=== PATIENT | female | born 1945 | race Caucasian/White ===

== ENCOUNTER → 2017-03-13 | Outpatient (REF) | payer MEDICARE | LOC: M SFHCPLAZ 13:15 | PROVIDERS: ATTEND Family Medicine | DX: Z13.1 Encounter for screening for diabetes mellitus (principal); E78.2 Mixed hyperlipidemia; E03.9 Hypothyroidism, unspecified; I10 Essential (primary) hypertension; Z53.8 Procedure and treatment not carried out for other reasons ==

== ENCOUNTER → 2017-03-25 | Outpatient (CLI) | payer MEDICARE ==
[2017-03-25 09:38] LABS: ALBUMIN 3.6 GM/DL (3.2-5.2); ALKALINE PHOSPHATASE 104 U/L (45-117); ALT/SGPT 44 U/L (12-78); AST/SGOT 35 U/L (15-37); BILIRUBIN,TOTAL 0.7 MG/DL (0.2-1.0); BLOOD UREA NITROGEN 17 MG/DL (7-18); CARBON DIOXIDE LEVEL 33 MEQ/L (21-32); CHLORIDE LEVEL 95 MEQ/L (98-107); CREATININE FOR GFR 0.67 MG/DL (0.55-1.02); GLUCOSE, FASTING 127 MG/DL (83-110); POTASSIUM SERUM 3.1 MEQ/L (3.5-5.1); SODIUM LEVEL 135 MEQ/L (136-145); TOTAL PROTEIN 6.6 GM/DL (6.4-8.2)
[2017-03-25 09:58] LABS: CHOLESTEROL LEVEL 168 MG/DL (<200); TRIGLYCERIDES LEVEL 70 MG/DL (<150)
[2017-03-25 11:21] LABS: ANION GAP 7 MEQ/L (8-16)
== END ==
LOC: M LAB 08:01
PROVIDERS: ATTEND Family Medicine
DX: E03.9 Hypothyroidism, unspecified (principal)

== ENCOUNTER → 2017-09-18 | Outpatient (REF) | payer MEDICARE | LOC: M SFHCPLAZ 15:56 | PROVIDERS: ATTEND Family Medicine | DX: E03.9 Hypothyroidism, unspecified (principal); E55.9 Vitamin D deficiency, unspecified ==

== ENCOUNTER → 2019-03-29 | Outpatient (CLI) | payer MEDICARE ==
[2019-03-29 13:47] LABS: BLOOD UREA NITROGEN 11 MG/DL (7-18); CALCIUM LEVEL 9.4 MG/DL (8.8-10.2); CARBON DIOXIDE LEVEL 31 MEQ/L (21-32); CHLORIDE LEVEL 98 MEQ/L (98-107); CHOLESTEROL LEVEL 180 MG/DL (<200); CHOLESTEROL RISK RATIO 2.068 (<5); CREATININE FOR GFR 0.78 MG/DL (0.55-1.30); GLOMERULAR FILTRATION RATE > 60.0 (>39); GLUCOSE, FASTING 195 MG/DL (70-100); HDL CHOLESTEROL 87 MG/DL (>40); LDL CHOLESTEROL 69 MG/DL (<100); NON-HDL-C 93 MG/DL; POTASSIUM SERUM 3.5 MEQ/L (3.5-5.1); SODIUM LEVEL 138 MEQ/L (136-145); TRIGLYCERIDES LEVEL 120 MG/DL (<150)
== END ==
LOC: M SMT 10:18
PROVIDERS: ATTEND Obstetrics & Gynecology
DX: E03.9 Hypothyroidism, unspecified (principal); I10 Essential (primary) hypertension; E78.2 Mixed hyperlipidemia

== ENCOUNTER → 2019-05-14 | Outpatient (CLI) | payer MEDICARE ==
[~2019-05-14] MED LIST: ALCOPAD25 TOP; ASPI-161 PO; ASPI81TA85 PO; ATOR80TA59; ATOR80TA59 PO; AZO-95TA3 PO; BLOOKIT21 XX; CALTTAB6 PO; CEFD1CAP8; CEFD1CAP8 PO; CHLO125TA; CHLO25TA PO; CYAN100050 PO; ESTE1TAB4 PO; GLUC1TES2 XX; IBUP-1022; IBUP1TAB6 PO; ICAPTAB5 PO; INSU1MIS20 SC; INSUDET SC; LANC30MI XX; LEVO75TA4; MECL-86; MECL-86 PO; METF-791 PO; OMEG100011 PO; OMEP-218; PEN1MIS21 SC; SYNT75TA PO; VITMTA PO
--- NOTE | 2019-05-16 14:15 | DEXA ---
AP SPINE L1 - L4 1.469 2.2 4.0 LT FEMUR TOTAL 1.062 0.4 2.2 LT NECK 0.960 -0.6 1.4 RT FEMUR TOTAL 1.084 0.6 2.4 RT NECK 0.979 -0.4 1.5 TOTAL BODY TOTAL OTHER COMMENTS: Normal bone densitometry of the spine and hips. The density of the spine has increased 5.7% since 07/05/2013. The density of the left hip has increased 2.5% since 07/05/2013. The density of the right hip has increased 2.9% since 07/05/2013. The increased density of the spine does represent a significant change. The increased density of the left hip does represent a significant change. The increased density of the right hip does represent a significant change. FOLLOW-UP: Recommendation for the next bone density exam: 5 years. CLAIR
== END ==
LOC: M WHC 14:19
PROVIDERS: ATTEND Obstetrics & Gynecology
DX: Z13.820 Encounter for screening for osteoporosis (principal); M85.89 Other specified disorders of bone density and structure, multiple sites

== ENCOUNTER → 2019-09-02 | Outpatient (REF) | payer MEDICARE ==
[2019-09-02 20:11] LABS: APPEARANCE, URINE CLEAR (CLEAR); BACTERIA, URINE AUTO NEGATIVE (NEGATIVE); BILIRUBIN, URINE AUTO NEGATIVE (NEGATIVE); BLOOD, URINE BLOOD NEGATIVE (NEGATIVE); COLOR, URINE YELLOW (YELLOW); GLUCOSE, URINE (UA) AUTO 3+ mg/dL (NEGATIVE); KETONE, URINE AUTO TRACE mg/dL (NEGATIVE); LEUKOCYTE ESTERASE, URINE AUTO NEGATIVE (NEGATIVE); NITRITE, URINE AUTO NEGATIVE (NEGATIVE); PROTEIN, URINE AUTO NEGATIVE (NEGATIVE); RBC, URINE AUTO 0 /HPF (0-3); SPECIFIC GRAVITY URINE AUTO 1.027 (1.002-1.035); SQUAMOUS EPITHELIAL CELL UR AU 0 /HPF (0-6); UROBILINOGEN, URINE AUTO 0.2 mg/dL (0.0-2.0); WBC, URINE AUTO 1 /HPF (0-3)
== END ==
LOC: M LAB REF 10:24
PROVIDERS: ATTEND Physician Assistant Medical
DX: N39.0 Urinary tract infection, site not specified (principal)

== ENCOUNTER 2019-09-09 11:43 | Observation (INO) | payer MEDICARE ==
[~2019-09-09] VITALS: Ht 157.5 cm; Wt 64.4 kg
[2019-09-09] MEDS ORDERED: OMEP-218 (12:31)
[2019-09-09] MEDS ORDERED: ATOR80TA59 (12:31)
[2019-09-09] MEDS ORDERED: LEVO75TA4 (12:31)
[2019-09-09] MEDS ORDERED: IBUP-1022 (12:31)
[2019-09-09] MEDS ORDERED: CEFD1CAP8 (12:31)
[2019-09-09] MEDS ORDERED: CHLO125TA (12:31)
[2019-09-09] MEDS ORDERED: ASPI81TA85 PO (12:31)
[2019-09-09] MEDS ORDERED: MECL-86 (12:31)
[2019-09-09 12:50] LABS: BASO # 0.1 10^3/uL (0.0-0.2); BASO % 0.8 % (0.0-1.0); EOS # 0.2 10^3/uL (0.0-0.5); EOS % 2.5 % (0.0-3.0); HEMATOCRIT 44.1 % (36.0-47.0); HEMOGLOBIN 15.7 g/dl (12.0-15.5); LYMPH # 2.1 10^3/uL (1.5-5.0); LYMPH % 26.3 % (24.0-44.0); MEAN CORPUSCULAR HEMOGLOBIN 32.3 pg (27.0-33.0); MEAN CORPUSCULAR HGB CONC 35.6 g/dl (32.0-36.5); MEAN CORPUSCULAR VOLUME 90.7 fl (80.0-96.0); MONO % 11.9 % (0.0-5.0); NEUTROPHILS # 4.6 10^3/uL (1.5-8.5); NEUTROPHILS % 58.1 % (36.0-66.0); PLATELET COUNT, AUTOMATED 248 10^3/uL (150-450); RED BLOOD COUNT 4.86 10^6/uL (4.00-5.40)
--- NOTE | 2019-09-09 13:13 | REP ---
Five views lumbar and three views thoracic spine: 09/09/2019. Indication: Thoracolumbar pain. Comparison: None. Findings: Idiopathic thoracolumbar scoliosis is present. Advanced degenerative sequelae of the thoracolumbar spine are noted. There is no evidence of acute fracture. No erosive osseous lesions of the thoracolumbar spine are detected. There is minimal anterolisthesis of T10 on T11. Impression: No acute osseous injury of the thoracolumbar spine. Scoliosis. Advanced degenerative sequelae. Electronically Signed by Kennedy Diaz DO 09/09/2019 01:05 P
--- NOTE | 2019-09-09 13:20 | REP ---
Five views lumbar and three views thoracic spine: 09/09/2019. Indication: Thoracolumbar pain. Comparison: None. Findings: Idiopathic thoracolumbar scoliosis is present. Advanced degenerative sequelae of the thoracolumbar spine are noted. There is no evidence of acute fracture. No erosive osseous lesions of the thoracolumbar spine are detected. There is minimal anterolisthesis of T10 on T11. Sliding-type hiatal hernia is noted. Impression: No acute osseous injury of the thoracolumbar spine. Scoliosis. Advanced degenerative sequelae. Electronically Signed by Kennedy Diaz DO 09/09/2019 01:12 P
[2019-09-09 13:29] LABS: CALCIUM LEVEL 9.9 MG/DL (8.8-10.2); CREATININE FOR GFR 1.08 MG/DL (0.55-1.30); GLOMERULAR FILTRATION RATE 52.7 (>39); POTASSIUM SERUM 3.7 MEQ/L (3.5-5.1)
[2019-09-09 14:15] LABS: HEMOGLOBIN A1c 13.6 %
[2019-09-09] MEDS ORDERED: HumuLIN R (REGULAR) INSULIN (NovoLIN R) **100U/ML** PER UNIT IV ONE (14:15)
[2019-09-09] MEDS ORDERED: NS 500 ML IV ONE (14:15)
[2019-09-09 14:26] LABS: ALBUMIN 3.4 GM/DL (3.2-5.2); BILIRUBIN,DIRECT 0.3 MG/DL (0.0-0.2); BILIRUBIN,TOTAL 1.3 MG/DL (0.2-1.0); MAGNESIUM LEVEL 2.1 MG/DL (1.8-2.4); PHOSPHORUS LEVEL 2.2 MG/DL (2.5-4.9); TOTAL PROTEIN 7.6 GM/DL (6.4-8.2)
[2019-09-09 15:33] LABS: ACETONE/KETONE 11.71 MG/DL (<2.81)
[2019-09-09] MEDS ORDERED: NS 1,000 ML IV ONE (16:15)
[2019-09-09 17:59] LABS: ALBUMIN 3.2 GM/DL (3.2-5.2); BILIRUBIN,DIRECT 0.3 MG/DL (0.0-0.2); TOTAL PROTEIN 6.6 GM/DL (6.4-8.2)
[2019-09-09] MEDS ORDERED: OMEGA-3 1000MG CAPSULE PO SCH (18:00)
[2019-09-09] MEDS ORDERED: MULTIVITAMINS/MINERALS THERAP 1 TAB PO SCH (18:00)
[2019-09-09 18:05] LABS: BLOOD UREA NITROGEN 17 MG/DL (7-18); CALCIUM LEVEL 9.1 MG/DL (8.8-10.2); CARBON DIOXIDE LEVEL 35 MEQ/L (21-32); CHLORIDE LEVEL 93 MEQ/L (98-107); CREATININE FOR GFR 0.77 MG/DL (0.55-1.30); GLOMERULAR FILTRATION RATE > 60.0 (>39); GLUCOSE, FASTING 284 MG/DL (70-100); POTASSIUM SERUM 2.8 MEQ/L (3.5-5.1); SODIUM LEVEL 137 MEQ/L (136-145)
[2019-09-09] MEDS ORDERED: GLUCOSE 4 GM CHEW TABLET PO PRN (19:45)
[2019-09-09] MEDS ORDERED: GLUCAGON FOR INJ 1 MG VIAL (J1610) SC PRN (19:45)
[2019-09-09] MEDS ORDERED: POTASSIUM CHLORIDE 10 MEQ SR TABLET PO ONE (19:45)
[2019-09-09] MEDS ORDERED: DEXTROSE 50% 50 ML SYRINGE IV PRN (19:45)
[2019-09-09] MEDS ORDERED: ENTER DRUG NAME HERE (PATIENT'S OWN MED) PO SCH (20:00)
[2019-09-09] MEDS: KCL 10MEQ/100ML SWI (KRUN) 10 MEQ in IV 1 EA IV SCH ×4 (20:04→23:58)
--- NOTE | 2019-09-09 20:09 | HPEPDOC ---
General Date of Admission 09/09/2019 Date of Service: Sep 09, 2019 Primary Care Physician: EDUARD LOPEZ D.O. Chief Complaint The patient is a 73-year-old female admitted with a reason for visit of Flank And Abd Pain, Urinary Problem. History of Present Illness HPI: 73-year-old female presents for foot burning and leg pain and feeling dizzy. She reports this is been ongoing for the past few weeks. Also has noted polydipsia polyuria. Given her thirst, she has increased her intake of sodas and juices. She denies any recent fever, chills, nausea, vomiting, abdominal pain, chest pain, shortness of breath. Reports she is compliant with all meds. Denies sick contacts and travel. Of note, she was recently started on cefdinir for sinusitis. Is otherwise doing well and has no other complaints. On admission was found to have an A1c of 13, osmoles and serum 39, bicarbonate elevated at 34, no anion gap, ketones in the urine. She will be admitted for hyperglycemia with ketones, however does not meet DKA or HHS. She denies any history of diabetes. PMH: Hypertension Osteoarthritis Vertigo Hyperlipidemia GERD Sciatica Hypothyroidism Past Surgical Hx: Per patient, none Family Hx: Father with CAD Mother with stroke and hypertension Social Hx: Denies ever smoking, alcohol, illicit substances ROS: Constitutional: Denies fever, chills, night sweats, weight loss HEENT: Denies headache, dysphagia Skin: Denies any rashes or ulcers Pulmonary: Denies wheezing, dyspnea, cough Cardiac: Denies chest pain, palpitations, edema, or wt gain GI: Denies nausea, vomiting, diarrhea, constipation, melena, hematochezia Endo: admits polyuria, polydipsia, excessive thirst MSK: Denies new pains or joint swelling. Admits b/l LE cramps/pain Neurologic: Denies new numbness/tingling PHYSICAL: General exam: A&Ox3, NAD, resting comfortably HEENT: NCAT, EOMI, anicteric sclera, supple neck, dry mucous memb Cardiac: RRR, 3/6 systolic murmur heard best left sternal border, No JVD or edema Respiratory: CTAB, no w/r/r/ Extremity: 2+ radial and dorsalis pedis pulses, no calf tenderness Skin: [place], warm, dry. No visible necrosis or lesions. Soles of b/l feet are erythematous, but not warm to touch or tender. No rash or drainage Msk: strength 5/5 x4, normal tone Neuro: normal speech, no focal deficits, sensation & motor intact in all extremities, including b/l feet LABORATORY DATA, MICROBIOLOGY: Please see below. IMAGING STUDIES: Thoracic spine x-ray: No acute osseous injury of the thoracolumbar spine. Scol iosis. Advanced degenerative sequelae. Lumbar spine xray: No acute osseous injury of the thoracolumbar spine. Scoliosis. Advanced degenerative sequelae. ASSESSMENT AND PLAN: This is a 73-year-old female with hypertension, arthritis, vertigo, hyperlipidemia, presenting for bilateral lower foot pain, polyuria, polydipsia, excessive thirst. Found on admission to have A1c of 13.6, ketones in urine, however no anion gap or acidosis. 1. New onset diabetes: Patient is hyperglycemic, however does not meet criteria for DKA or HHS. Will need diabetic teaching and meat with teachers noticed. Start on low dose of Levemir and titrate up as needed. Insulin sliding scale on board. Will need frequent fingersticks in BMP strep tonight to monitor potassium, anion gap, bicarbonate, ketones. Will hydrate with fluids given her dehydrated status. 2. Hypokalemia: Likely 2/2 insulin administration. Closely monitor with frequent BMPs. Oral and IV supplementation given. Potassium added on to her IV fluids as well. 3. Pseudohyponatremia: 2/2 hyperglycemia. Is normal when accounted for her blood sugars. Monitor 4. Recent sinusitis: Patient is on cefdinir course started by urgent care. Okay to continue For the remainder of her chronic conditions, continue home meds except for Chlorthalidone, which we will hold given her IV fluid hydration. DVT prophylaxis: mechanical DISPOSITION: Observe overnight to just insulin for her hyperglycemia and monitor ketones and potassium. Likely discharge tomorrow. Home Medications Scheduled Aspirin (Aspir 81) 81 Mg Tablet.dr, 1 TAB PO DAILY for pain, (Reported) Miscellaneous Medications Atorvastatin Calcium (Atorvastatin Calcium) 80 Mg Tablet, (Reported) Cefdinir (Cefdinir) 300 Mg Capsule, (Reported) Chlorthalidone (Chlorthalidone) 25 Mg Tablet, (Reported) Ibuprofen (Ibuprofen) 600 Mg Tablet, (Reported) Levothyroxine Sodium (Levothyroxine Sodium) 75 Mcg Tablet, (Reported) Meclizine HCl (Meclizine HCl) 25 Mg Tablet, (Reported) Omeprazole (Omeprazole) 20 Mg Capsule., (Reported) Allergies Coded Allergies: Penicillins (Verified Allergy, Mild, rash, 09/09/19) Sulfa (Sulfonamide Antibiotics) (Verified Allergy, Mild, rash, 09/09/19) codeine (Verified Allergy, Mild, rash, 09/09/19) erythromycin base (Verified Allergy, Mild, rash, 09/09/19) morphine (Verified Allergy, Mild, rash, 09/09/19) ATTENDING NOTE I have personally evaluated and examined the patient. Discussed with residents and student regarding plan of care and agree with the above assessment and plan. A-FIB/CHADSVASC A-FIB History Current/History of A-Fib/PAF?: No Current PO Anticoag Therapy: No Vital Signs Vital Signs Date Time Temp Pulse Resp B/P (MAP) Pulse Ox O2 Delivery O2 Flow Rate FiO2 09/09/19 19:34 97.6 71 16 127/64 (85) 100 Room Air Laboratory Data Labs 24H Laboratory Tests 2 09/09/19 12:33: Urine Color STRAW, Urine Appearance CLEAR, Urine pH 6.0, Urine Specific [place] 1.027, Urine Protein NEGATIVE, Urine Glucose (UA) 3+H, Urine Ketones 1+H, Urine Blood NEGATIVE, Urine Nitrite NEGATIVE, Urine Bilirubin NEGATIVE, Urine Urobilinogen 0.2, Urine Leukocyte Esterase NEGATIVE, Urine WBC (Auto) 1, Urine RBC (Auto) 1, Urine Hyaline Casts (Auto) 0, Urine Bacteria (Auto) NEGATIVE, Urine Squamous Epithelial Cells 0, Urine Sperm (Auto) , Estimated Mean Plasma Glucose 344H, Hemoglobin A1c 13.6 09/09/19 12:39: Immature Granulocyte % (Auto) 0.4, Neutrophils (%) (Auto) 58.1, Lymphocytes (%) (Auto) 26.3, Monocytes (%) (Auto) 11.9H, Eosinophils (%) (Auto) 2.5, Basophils (%) (Auto) 0.8, Neutrophils # (Auto) 4.6, Lymphocytes # (Auto) 2.1, Monocytes # (Auto) 1.0H, Eosinophils # (Auto) 0.2, Basophils # (Auto) 0.1, Nucleated Red Blood Cells % (auto) 0.0, Anion Gap 12, Glomerular Filtration Rate 52.7, Calcium Level 9.9, Phosphorus Level 2.2L, Magnesium Level 2.1, Total Bilirubin 1.3H, Direct Bilirubin 0.3H, Aspartate Amino Transf (AST/SGOT) 41H, Alanine Amino transferase (ALT/SGPT) 43, Alkaline Phosphatase 124H, Total Protein 7.6, Albumin 3.4, Albumin/Globulin Ratio 0.81L, Lipase 116, B-Hydroxybutyrate 11.71H 09/09/19 13:54: Osmolality 309H 09/09/19 15:48: Bedside Glucose (Misc Panel) 330H 09/09/19 16:04: Anion Gap 9, Glomerular Filtration Rate > 60.0, Calcium Level 9.1, Total Bilirubin 1.0, Direct Bilirubin 0.3H, Aspartate Amino Transf (AST/SGOT) 36, Alanine Aminotransferase (ALT/SGPT) 40, Alkaline Phosphatase 115, Total Protein 6.6, Albumin 3.2, Albumin/Globulin Ratio 0.94L, B-Hydroxybutyrate 17.25H 09/09/19 18:40: Osmolality 295 CBC/BMP Laboratory Tests 09/09/19 12:39 09/09/19 16:04 Plan / VTE VTE Prophylaxis Ordered?: Yes FARIDA RODRIGUEZ DO Sep 09, 2019 20:09 PIO GUEVARA MD Sep 09, 2019 20:32
[2019-09-09] MEDS ORDERED: ATORVASTATIN 20 MG TAB PO SCH (21:00)
[2019-09-09] MEDS ORDERED: CHLO25TA PO (21:16)
[2019-09-09] MEDS ORDERED: CYAN100050 PO (21:16)
[2019-09-09] MEDS ORDERED: ASPI-161 PO (21:16)
[2019-09-09] MEDS ORDERED: AZO-95TA3 PO (21:16)
[2019-09-09] MEDS ORDERED: VITMTA PO (21:16)
[2019-09-09] MEDS ORDERED: MECL-86 PO (21:16)
[2019-09-09] MEDS ORDERED: OMEG100011 PO (21:16)
[2019-09-09] MEDS ORDERED: SYNT75TA PO (21:16)
[2019-09-09] MEDS ORDERED: IBUP1TAB6 PO (21:16)
[2019-09-09] MEDS ORDERED: ATOR80TA59 PO (21:16)
[2019-09-09] MEDS ORDERED: ICAPTAB5 PO (21:16)
[2019-09-09] MEDS ORDERED: CALTTAB6 PO (21:16)
[2019-09-09] MEDS ORDERED: ESTE1TAB4 PO (21:16)
[2019-09-09] MEDS ORDERED: CEFD1CAP8 PO (21:16)
[2019-09-09 21:52] VITALS: BP 143/67
[2019-09-09] MEDS: LEVEMIR (INSULIN DETEMIR) 1 UNITS/0.01ML SC SCH (22:33)
[2019-09-09] MEDS: CEFDINIR 300 MG CAP (OMNICEF) PO SCH (22:33)
[2019-09-09] MEDS: HumaLOG INSULIN (NovoLOG) PER UNIT SC SCH (23:58)
[2019-09-10] VITALS: BP 136/68
[2019-09-10] MEDS ORDERED: CEFDINIR 300 MG CAP (OMNICEF) PO SCH
[2019-09-10] MEDS ORDERED: KCL 20MEQ in NS 1000ML 1,000 ML IV SCH
[2019-09-10] MEDS: MECLIZINE 25 MG TABLET PO SCH ×2 (00:01→09:05)
[2019-09-10 00:37] LABS: BLOOD UREA NITROGEN 14 MG/DL (7-18); CALCIUM LEVEL 8.5 MG/DL (8.8-10.2); CARBON DIOXIDE LEVEL 29 MEQ/L (21-32); CHLORIDE LEVEL 95 MEQ/L (98-107); CREATININE FOR GFR 0.75 MG/DL (0.55-1.30); GLOMERULAR FILTRATION RATE > 60.0 (>39); GLUCOSE, FASTING 319 MG/DL (70-100); POTASSIUM SERUM 2.9 MEQ/L (3.5-5.1); SODIUM LEVEL 136 MEQ/L (136-145)
[2019-09-10] MEDS ORDERED: POTASSIUM CHLORIDE 10 MEQ SR TABLET PO ONE ×2 (01:15→07:15)
[2019-09-10 01:25] LABS: MAGNESIUM LEVEL 1.8 MG/DL (1.8-2.4)
[2019-09-10] MEDS: KCL 20MEQ in NS 1000ML 1,000 ML IV SCH ×2 (01:55→12:03)
[2019-09-10 02:26] LABS: BLOOD UREA NITROGEN 16 MG/DL (7-18); CALCIUM LEVEL 8.1 MG/DL (8.8-10.2); CARBON DIOXIDE LEVEL 29 MEQ/L (21-32); CHLORIDE LEVEL 97 MEQ/L (98-107); CREATININE FOR GFR 0.92 MG/DL (0.55-1.30); GLOMERULAR FILTRATION RATE > 60.0 (>39); GLUCOSE, FASTING 297 MG/DL (70-100); POTASSIUM SERUM 3.1 MEQ/L (3.5-5.1); SODIUM LEVEL 135 MEQ/L (136-145)
[2019-09-10 04:00] VITALS: BP 141/63
[2019-09-10 04:54] LABS: BLOOD UREA NITROGEN 15 MG/DL (7-18); CALCIUM LEVEL 8.6 MG/DL (8.8-10.2); CARBON DIOXIDE LEVEL 29 MEQ/L (21-32); CHLORIDE LEVEL 100 MEQ/L (98-107); CREATININE FOR GFR 0.71 MG/DL (0.55-1.30); GLOMERULAR FILTRATION RATE > 60.0 (>39); GLUCOSE, FASTING 213 MG/DL (70-100); POTASSIUM SERUM 3.2 MEQ/L (3.5-5.1); SODIUM LEVEL 136 MEQ/L (136-145)
[2019-09-10] MEDS: HumaLOG INSULIN (NovoLOG) PER UNIT SC SCH ×3 (04:55→12:55)
[2019-09-10] MEDS ORDERED: LEVOTHYROXINE 75MCG TABLET (0.075MG) PO SCH (06:00)
[2019-09-10 06:14] LABS: ACETONE/KETONE 7.56 MG/DL (<2.81); BLOOD UREA NITROGEN 15 MG/DL (7-18); CALCIUM LEVEL 8.2 MG/DL (8.8-10.2); CARBON DIOXIDE LEVEL 29 MEQ/L (21-32); CHLORIDE LEVEL 101 MEQ/L (98-107); CREATININE FOR GFR 0.64 MG/DL (0.55-1.30); GLOMERULAR FILTRATION RATE > 60.0 (>39); GLUCOSE, FASTING 184 MG/DL (70-100); POTASSIUM SERUM 3.1 MEQ/L (3.5-5.1); SODIUM LEVEL 137 MEQ/L (136-145)
[2019-09-10 07:36] VITALS: BP 155/67
[2019-09-10] MEDS ORDERED: ASPIRIN 81 MG ENTERIC TAB PO SCH (09:00)
[2019-09-10] MEDS: LEVEMIR (INSULIN DETEMIR) 1 UNITS/0.01ML SC SCH (09:05)
[2019-09-10] MEDS: CEFDINIR 300 MG CAP (OMNICEF) PO SCH (09:05)
[2019-09-10] MEDS: IBUPROFEN 600 MG TAB PO SCH ×2 (09:05)
[2019-09-10] MEDS ORDERED: INSUDET SC (10:01)
[2019-09-10] MEDS ORDERED: GLUC1TES2 XX ×2 (11:10→13:11)
[2019-09-10] MEDS ORDERED: INSU1MIS20 SC ×2 (11:10→11:25)
[2019-09-10] MEDS ORDERED: BLOOKIT21 XX ×3 (11:10→13:11)
[2019-09-10] MEDS ORDERED: ALCOPAD25 TOP ×3 (11:10→13:11)
[2019-09-10] MEDS ORDERED: LANC30MI XX ×3 (11:10→13:11)
[2019-09-10] MEDS ORDERED: PEN1MIS21 SC (11:25)
[2019-09-10] MEDS ORDERED: CHLORTHALIDONE 25 MG TAB PO SCH (12:00)
[2019-09-10 12:52] LABS: BLOOD UREA NITROGEN 17 MG/DL (7-18); CALCIUM LEVEL 8.1 MG/DL (8.8-10.2); CARBON DIOXIDE LEVEL 26 MEQ/L (21-32); CHLORIDE LEVEL 100 MEQ/L (98-107); CREATININE FOR GFR 0.83 MG/DL (0.55-1.30); GLOMERULAR FILTRATION RATE > 60.0 (>39); GLUCOSE, FASTING 335 MG/DL (70-100); POTASSIUM SERUM 3.9 MEQ/L (3.5-5.1); SODIUM LEVEL 134 MEQ/L (136-145)
[2019-09-10] MEDS ORDERED: METF-791 PO (14:32)
[2019-09-10 16:00] VITALS: BP 144/68
--- NOTE | 2019-09-10 18:42 | DSES ---
DATE OF ADMISSION: 09/09/2019 DATE OF DISCHARGE: 09/10/2019 My preceptor for this encounter is Dr. Demetrio Ware. DISCHARGE DIAGNOSES: 1. Hyperglycemia secondary to newly diagnosed type 2 diabetes. 2. Hypokalemia. 3. Pseudohyponatremia. CONSULTANTS: None. PROCEDURES: None. HOSPITAL COURSE: This is a 73-year-old female who presented to the emergency department on 09/09/2019 for burning foot and leg pain, as well as feeling dizzy. She reports that these symptoms had been going on for the past few weeks. She has been incredibly thirsty and has been urinating more. Because of her thirst, she increased her intake of sodas and juices. She denied any recent fever, chills, nausea, vomiting, abdominal pain, chest pain, shortness of breath. She denied recent sick contacts or travel. She had been to the Urgent Care several days prior and was recently started on cefdinir for sinusitis. In the emergency department, she was found to have an A1c of 13.6, a blood sugar of 618, and a sodium of 130. Sodium corrected for hyperglycemia was actually 138. She also had an elevated beta hydroxybutyrate at 17.25, which peaked about 7 hours later at 28. She was given insulin in the emergency department, and a repeat BMP showed hypokalemia with a potassium of 2.8. She was given a K run and given 40 mEq of potassium by mouth. Repeat BMP showed that her potassium was still low at 2.3, and she continued to need potassium repletion throughout the night. At noon on the day of discharge, the patient's potassium had stabilized at 3.9. Her sugars still remained a little bit elevated in the 200-300 range. The majority of her symptoms resolved, and she was discharged home on insulin, Levemir 5 units twice a day, as well as 500 mg of metformin by mouth. PHYSICAL EXAMINATION: Vital signs: Temperature 97.9, pulse 71 and regular, respiratory rate 18, blood pressure 155/67, pulse oximetry 95% on room air. General: This is an elderly obese female resting comfortably in bed. She is not in any acute distress. HEENT: Normocephalic, atraumatic. Extraocular eye movements are intact. Sclerae are anicteric. Mucous membranes are moist. The patient has some of her own teeth but is missing quite a few. Neck: Supple, no jugular venous distention (JVD), no masses. Heart: Regular rate and rhythm. No gallops or rubs, but there is a 3/6 systolic murmur heard best at the left sternal border. Lungs: Clear to auscultation bilaterally. No wheezes, rhonchi or rales. Extremities: No clubbing, cyanosis or bilateral lower extremity edema. Skin: [place], warm and dry. No rashes. She does have some chronic erythema of the soles of her bilateral feet, these are not warm to touch or tender. May be secondary to chronic venous stasis changes. Musculoskeletal: No weakness noted. Neurologic: Muscle strength 5/5 bilaterally. Sensation intact throughout. Cranial nerves II-XII are intact. LABORATORY DATA: CBC: From 09/09/2019, WBC 8.0, hemoglobin 15.7, hematocrit 44.1, platelets 248. Chemistry: Sodium 134, potassium 3.9, chloride 100, carbon dioxide 20, BUN 17, creatinine 0.83, glucose 335, calcium 8.1. Urine: Positive for 3+ glucose and 1+ ketones. Beta hydroxybutyrate improved during her admission. IMAGING: Thoracic spine x-ray done 09/09/2019 showed scoliosis and advanced degenerative sequela. No acute osseous injury of the thoracolumbar spine. Lumbar spine x-ray: Scoliosis and advanced degenerative sequelae. No acute osseous injury of the thoracolumbar spine. DISCHARGE MEDICATIONS: - glucose test strips - Levemir pen 5 units subcutaneous twice a day, maximum daily dose 10 units - metformin 500 mg tablets by mouth daily for 10 days - Montse-C 1000 mg tablet by mouth every evening - aspirin 81 mg by mouth daily - atorvastatin 80 mg by mouth nightly - ICap tablet one tablet by mouth every evening - Caltrate 600 plus D plus tablet one tablet by mouth every evening - cefdinir 300 mg by mouth every 12 hours - chlorthalidone 25 mg by mouth daily - vitamin B12 1000 mcg by mouth every evening - Motrin 600 mg by mouth twice a day as needed - Synthroid 75 mcg by mouth daily - meclizine 25 mg by mouth three times a day - Thera M plus tablet one tablet by mouth every evening - [place]-3 1000 mg soft gel one capsule by mouth every evening - Azo urinary pain relief 95 mg by mouth every evening DIET: Consistent-carbohydrate, diabetic education was given from dietary in the hospital. ACTIVITY: As tolerated. FOLLOWUP: [address] Leone in the [facility] at 2:30 p.m. The patient was made aware that if her blood sugars continue to be in the 300-400 range, to call primary care provider office and basal insulin will be adjusted from there. I, Demetrio Ware, have independently examined this patient and performed my own physical exam, as well as reviewed the documentation and edited where necessary. I have discussed in detail with the resident / student the findings and plan of treatment as documented by the resident / student and edited their note. I agree with their findings and treatment plan and have edited their documentation. I will continue to follow the patient during this hospital stay. CLAIR
[2019-09-10] MEDS ORDERED: HumaLOG INSULIN (NovoLOG) PER UNIT SC SCH ×2 (21:00)
== END 2019-09-10 17:30 | disposition home health service (06) ==
LOC: M ED 11:43 → M ED INP 11:44 → M PCU 21:52
PROVIDERS: ADMIT Student in an Organized Health Care Education/Training Program; ATTEND Student in an Organized Health Care Education/Training Program
DX: E11.65 Type 2 diabetes mellitus with hyperglycemia (principal); E87.6 Hypokalemia; E87.1 Hypo-osmolality and hyponatremia; R42 Dizziness and giddiness; E78.49 Other hyperlipidemia; I10 Essential (primary) hypertension; K21.9 Gastro-esophageal reflux disease without esophagitis; E03.9 Hypothyroidism, unspecified; Z88.0 Allergy status to penicillin; Z88.2 Allergy status to sulfonamides; Z88.5 Allergy status to narcotic agent; Z79.899 Other long term (current) drug therapy
CPT/HCPCS: 36415; 72072; 72110; 80048; 80076; 81001; 82010; 83036; 83690; 83735; 83930; 84100; 85025; 96361; 96374; 99284; G0378

== ENCOUNTER → 2019-09-16 | Outpatient (REF) | payer MEDICARE ==
[2019-09-16 12:17] LABS: BLOOD UREA NITROGEN 13 MG/DL (7-18); CALCIUM LEVEL 10.5 MG/DL (8.8-10.2); CARBON DIOXIDE LEVEL 32 MEQ/L (21-32); CHLORIDE LEVEL 97 MEQ/L (98-107); CREATININE FOR GFR 0.59 MG/DL (0.55-1.30); GLOMERULAR FILTRATION RATE > 60.0 (>39); GLUCOSE, FASTING 183 MG/DL (70-100); POTASSIUM SERUM 3.4 MEQ/L (3.5-5.1); SODIUM LEVEL 137 MEQ/L (136-145)
== END ==
LOC: M SFHCPLAZ 09:21
PROVIDERS: ATTEND Obstetrics & Gynecology
DX: E11.9 Type 2 diabetes mellitus without complications (principal)

== ENCOUNTER → 2019-09-17 | Outpatient (REF) | payer MEDICARE | LOC: M SFHCPLAZ 15:26 | PROVIDERS: ATTEND Family Medicine | DX: E11.9 Type 2 diabetes mellitus without complications (principal); Z53.8 Procedure and treatment not carried out for other reasons ==

== ENCOUNTER → 2019-10-20 | Outpatient (CLI) | payer MEDICARE ==
[2019-10-20 17:00] LABS: BLOOD UREA NITROGEN 13 MG/DL (7-18); CALCIUM LEVEL 9.4 MG/DL (8.8-10.2); CARBON DIOXIDE LEVEL 27 MEQ/L (21-32); CHLORIDE LEVEL 99 MEQ/L (98-107); CREATININE FOR GFR 0.69 MG/DL (0.55-1.30); GLOMERULAR FILTRATION RATE > 60.0 (>39); GLUCOSE, FASTING 116 MG/DL (70-100); POTASSIUM SERUM 3.5 MEQ/L (3.5-5.1); SODIUM LEVEL 138 MEQ/L (136-145)
== END ==
LOC: M ADAMS 14:52
PROVIDERS: ATTEND Obstetrics & Gynecology
DX: E11.9 Type 2 diabetes mellitus without complications (principal)

== ENCOUNTER → 2019-11-01 | Outpatient (REF) | payer MEDICARE ==
[2019-11-01 20:16] LABS: HEMOGLOBIN A1c 8.5 %
[2019-11-01 20:38] LABS: CREATININE, URINE 32.3 MG/DL; MALB URINE SIEMENS 16.3 MG/L; MAU/CREAT RATIO 50.4 MCG/MG (0.0-30.0)
== END ==
LOC: M SFHCPLAZ 17:31
DX: E11.9 Type 2 diabetes mellitus without complications (principal)

== ENCOUNTER → 2020-01-31 | Outpatient (REF) | payer MEDICARE ==
[2020-01-31 12:53] LABS: BLOOD UREA NITROGEN 14 MG/DL (7-18); CALCIUM LEVEL 10.2 MG/DL (8.8-10.2); CARBON DIOXIDE LEVEL 31 MEQ/L (21-32); CHLORIDE LEVEL 99 MEQ/L (98-107); CHOLESTEROL LEVEL 158 MG/DL (<200); CHOLESTEROL RISK RATIO 2.257 (<5); GLOMERULAR FILTRATION RATE > 60.0 (>39); GLUCOSE, FASTING 90 MG/DL (70-100); HDL CHOLESTEROL 70 MG/DL (>40); LDL CHOLESTEROL 71 MG/DL (<100); NON-HDL-C 88 MG/DL; SODIUM LEVEL 137 MEQ/L (136-145); TRIGLYCERIDES LEVEL 83 MG/DL (<150)
[2020-01-31 13:44] LABS: HEMOGLOBIN A1c 5.9 %
[2020-01-31 18:41] LABS: CREATININE, URINE 29.9 MG/DL; MALB URINE SIEMENS < 5.0 MG/L; MAU/CREAT RATIO 16.7 MCG/MG (0.0-30.0)
== END ==
LOC: M SFHCPLAZ 09:57 → M SFHCADAM 09:57
PROVIDERS: ATTEND Family Medicine
DX: E11.9 Type 2 diabetes mellitus without complications (principal); I10 Essential (primary) hypertension

== ENCOUNTER → 2020-04-06 | Outpatient (REF) | payer MEDICARE ==
[~2020-04-06] MED LIST changes: -METF-791 PO; +METF-838 PO
[2020-04-06 13:18] LABS: BLOOD UREA NITROGEN 15 MG/DL (7-18); CARBON DIOXIDE LEVEL 31 MEQ/L (21-32); CHLORIDE LEVEL 94 MEQ/L (98-107); CREATININE FOR GFR 0.61 MG/DL (0.55-1.30); GLOMERULAR FILTRATION RATE > 60.0 (>39); GLUCOSE, FASTING 145 MG/DL (70-100); POTASSIUM SERUM 4.1 MEQ/L (3.5-5.1); SODIUM LEVEL 132 MEQ/L (136-145)
[2020-04-06 15:06] LABS: HEMOGLOBIN A1c 5.9 %
== END ==
LOC: M SFHCPLAZ 10:54 → M SFHCADAM 10:54
PROVIDERS: ATTEND Family Medicine
DX: I10 Essential (primary) hypertension (principal); E11.9 Type 2 diabetes mellitus without complications; E03.9 Hypothyroidism, unspecified

== ENCOUNTER → 2020-09-01 | Outpatient (REF) | payer MEDICARE ==
[~2020-09-01] MED LIST changes: -ASPI81TA85 PO; +ASPI81TA86 PO
[2020-09-01 13:49] LABS: ALBUMIN 3.9 GM/DL (3.2-5.2); ALT/SGPT 30 U/L (12-78); BILIRUBIN,TOTAL 0.8 MG/DL (0.2-1.0); BLOOD UREA NITROGEN 16 MG/DL (7-18); CALCIUM LEVEL 10.1 MG/DL (8.8-10.2); CARBON DIOXIDE LEVEL 31 MEQ/L (21-32); CHLORIDE LEVEL 96 MEQ/L (98-107); CHOLESTEROL LEVEL 165 MG/DL (<200); CHOLESTEROL RISK RATIO 2.115 (<5); CREATININE FOR GFR 0.56 MG/DL (0.55-1.30); FREE T4 1.55 NG/DL (0.76-1.46); GLOMERULAR FILTRATION RATE > 60.0 (>39); GLUCOSE, FASTING 111 MG/DL (70-100); HDL CHOLESTEROL 78 MG/DL (>40); LDL CHOLESTEROL 74 MG/DL (<100); NON-HDL-C 87 MG/DL; POTASSIUM SERUM 4.1 MEQ/L (3.5-5.1); SODIUM LEVEL 134 MEQ/L (136-145); TOTAL PROTEIN 7.2 GM/DL (6.4-8.2); TRIGLYCERIDES LEVEL 66 MG/DL (<150)
[2020-09-01 13:55] LABS: HEMOGLOBIN A1c 5.9 %
== END ==
LOC: M SFHCADAM 12:33
PROVIDERS: ATTEND Student in an Organized Health Care Education/Training Program
DX: E11.9 Type 2 diabetes mellitus without complications (principal); E03.9 Hypothyroidism, unspecified

== ENCOUNTER → 2020-10-06 | Outpatient (REF) | payer MEDICARE ==
[2020-10-06 17:12] LABS: ALBUMIN 3.7 GM/DL (3.2-5.2); ALT/SGPT 32 U/L (12-78); BILIRUBIN,TOTAL 0.6 MG/DL (0.2-1.0); BLOOD UREA NITROGEN 13 MG/DL (7-18); CALCIUM LEVEL 9.7 MG/DL (8.8-10.2); CARBON DIOXIDE LEVEL 30 MEQ/L (21-32); CHLORIDE LEVEL 97 MEQ/L (98-107); CREATININE FOR GFR 0.56 MG/DL (0.55-1.30); GLOMERULAR FILTRATION RATE > 60.0 (>39); GLUCOSE, FASTING 122 MG/DL (70-100); POTASSIUM SERUM 4.5 MEQ/L (3.5-5.1); SODIUM LEVEL 135 MEQ/L (136-145); TOTAL PROTEIN 6.8 GM/DL (6.4-8.2)
== END ==
LOC: M LABDRWAD 16:22
PROVIDERS: ATTEND Student in an Organized Health Care Education/Training Program
DX: E87.6 Hypokalemia (principal)

== ENCOUNTER → 2020-11-06 | Outpatient (REF) | payer MEDICARE ==
[2020-11-06 13:31] LABS: ALBUMIN 3.9 GM/DL (3.2-5.2); ALT/SGPT 35 U/L (12-78); BILIRUBIN,TOTAL 0.7 MG/DL (0.2-1.0); BLOOD UREA NITROGEN 12 MG/DL (7-18); CALCIUM LEVEL 10.6 MG/DL (8.8-10.2); CARBON DIOXIDE LEVEL 31 MEQ/L (21-32); CHLORIDE LEVEL 95 MEQ/L (98-107); CREATININE FOR GFR 0.59 MG/DL (0.55-1.30); GLOMERULAR FILTRATION RATE > 60.0 (>39); GLUCOSE, FASTING 91 MG/DL (70-100); POTASSIUM SERUM 4.4 MEQ/L (3.5-5.1); SODIUM LEVEL 135 MEQ/L (136-145); TOTAL PROTEIN 7.4 GM/DL (6.4-8.2)
== END ==
LOC: M LABDRWAD 12:34
PROVIDERS: ATTEND Student in an Organized Health Care Education/Training Program
DX: E11.9 Type 2 diabetes mellitus without complications (principal)

== ENCOUNTER → 2020-11-13 | Outpatient (REF) | payer MEDICARE ==
[2020-11-13 14:19] LABS: HEMOGLOBIN A1c 6.1 %
[2020-11-13 14:32] LABS: BLOOD UREA NITROGEN 15 MG/DL (7-18); CARBON DIOXIDE LEVEL 32 MEQ/L (21-32); CHLORIDE LEVEL 96 MEQ/L (98-107); CREATININE FOR GFR 0.54 MG/DL (0.55-1.30); FREE T4 1.47 NG/DL (0.76-1.46); GLOMERULAR FILTRATION RATE > 60.0 (>39); GLUCOSE, FASTING 108 MG/DL (70-100); POTASSIUM SERUM 4.4 MEQ/L (3.5-5.1); SODIUM LEVEL 134 MEQ/L (136-145)
[2020-11-13 14:34] LABS: CREATININE, URINE 33.7 MG/DL; MALB URINE SIEMENS < 5.0 MG/L; MAU/CREAT RATIO 14.8 MCG/MG (0.0-30.0)
== END ==
LOC: M SFHCPLAZ 11:21
PROVIDERS: ATTEND Family Medicine
DX: E03.9 Hypothyroidism, unspecified (principal); E87.6 Hypokalemia; E11.9 Type 2 diabetes mellitus without complications

== ENCOUNTER → 2021-02-15 | Outpatient (REF) | payer MEDICARE ==
[2021-02-15 19:19] LABS: CREATININE, URINE 44.4 MG/DL; MALB URINE SIEMENS 5.4 MG/L; MAU/CREAT RATIO 12.1 MCG/MG (0.0-30.0)
[2021-02-15 19:34] LABS: HEMOGLOBIN A1c 6.1 %
== END ==
LOC: M SFHCPLAZ 15:03
PROVIDERS: ATTEND Family Medicine
DX: E11.9 Type 2 diabetes mellitus without complications (principal)

== ENCOUNTER → 2021-03-31 | Outpatient (REF) | payer MEDICARE ==
[2021-03-31 13:48] LABS: BLOOD UREA NITROGEN 11 MG/DL (7-18); CARBON DIOXIDE LEVEL 32 MEQ/L (21-32); CHLORIDE LEVEL 96 MEQ/L (98-107); CHOLESTEROL LEVEL 161 MG/DL (<200); CHOLESTEROL RISK RATIO 1.808 (<5); CREATININE FOR GFR 0.53 MG/DL (0.55-1.30); GLOMERULAR FILTRATION RATE > 60.0 (>39); GLUCOSE, FASTING 101 MG/DL (70-100); HDL CHOLESTEROL 89 MG/DL (>40); LDL CHOLESTEROL 60 MG/DL (<100); NON-HDL-C 72 MG/DL; POTASSIUM SERUM 3.7 MEQ/L (3.5-5.1); SODIUM LEVEL 133 MEQ/L (136-145); TRIGLYCERIDES LEVEL 59 MG/DL (<150)
== END ==
LOC: M SFHCPLAZ 08:15 → M SFHCADAM 08:48
PROVIDERS: ATTEND Family Medicine
DX: E87.6 Hypokalemia (principal); E78.2 Mixed hyperlipidemia

== ENCOUNTER → 2021-04-14 | Outpatient (CLI) | payer MEDICARE ==
[~2021-04-14] MED LIST changes: +ALAVTAB PO; +BACL1TAB8 PO; -CEFD1CAP8; -CEFD1CAP8 PO; +CEFD300C41; +CEFD300C41 PO; +LORA-674 PO; +METF10004 PO; +OMEP-173; -OMEP-218; +OMEP1CAP73 PO; +POTA10TA17 PO; +TRAM50TA2 PO; +TRUL0.5I SC; +TRUL10IN SQ
[2021-04-14 17:57] LABS: BLOOD UREA NITROGEN 13 MG/DL (7-18); CALCIUM LEVEL 9.7 MG/DL (8.8-10.2); CARBON DIOXIDE LEVEL 29 MEQ/L (21-32); CHLORIDE LEVEL 97 MEQ/L (98-107); CREATININE FOR GFR 0.48 MG/DL (0.55-1.30); GLOMERULAR FILTRATION RATE > 60.0 (>39); GLUCOSE, FASTING 90 MG/DL (70-100); POTASSIUM SERUM 3.5 MEQ/L (3.5-5.1); SODIUM LEVEL 136 MEQ/L (136-145)
== END ==
LOC: M PLALAB 15:02
PROVIDERS: ATTEND Student in an Organized Health Care Education/Training Program
DX: E78.2 Mixed hyperlipidemia (principal)

== ENCOUNTER → 2021-05-03 | Outpatient (CLI) | payer MEDICARE ==
[~2021-05-03] MED LIST changes: -ALAVTAB PO; -BACL1TAB8 PO; +CEFD1CAP8; +CEFD1CAP8 PO; -CEFD300C41; -CEFD300C41 PO; -LORA-674 PO; -METF10004 PO; -OMEP-173; +OMEP-218; -OMEP1CAP73 PO; -POTA10TA17 PO; -TRAM50TA2 PO; -TRUL0.5I SC; -TRUL10IN SQ
[2021-05-03 16:25] LABS: BLOOD UREA NITROGEN 15 MG/DL (7-18); CALCIUM LEVEL 9.5 MG/DL (8.8-10.2); CARBON DIOXIDE LEVEL 25 MEQ/L (21-32); CHLORIDE LEVEL 101 MEQ/L (98-107); CREATININE FOR GFR 0.57 MG/DL (0.55-1.30); GLOMERULAR FILTRATION RATE > 60.0 (>39); GLUCOSE, FASTING 106 MG/DL (70-100); SODIUM LEVEL 136 MEQ/L (136-145)
== END ==
LOC: M PLALAB 13:45
PROVIDERS: ATTEND Student in an Organized Health Care Education/Training Program
DX: E87.6 Hypokalemia (principal)

== ENCOUNTER 2021-07-29 09:32 | Emergency (ER) | payer MEDICARE ==
[~2021-07-29] VITALS: Ht 157.5 cm; Wt 56.8 kg
[2021-07-29 09:33] VITALS: BP 125/67
--- OUTSIDE RECORDS SUMMARY | 2021-07-29 09:45 | CCD ---
Author Author [facility] Organization [facility] Address Unknown Phone Unavailable Care Team Providers Care Agent Licensing Clerk Name Role Phone Juancho Holley Unavailable PROBLEMS Type Condition ICD9-CM Code [id number] Code Onset Dates Condition S tatus W/U Status Risk SNOMED Code Notes Problem Seasonal allergies J30.2 Active confirmed 4 39587541 Problem Type 2 diabetes mellitus wit hout complication, without long-term current use of insulin E11.9 Active confirmed 880663118 Problem Hypothyroidism (acquired) E03.9 Active confirmed 340881742 Problem Essential (primary) hypertension I10 Active conf irmed [id number] Problem Mixed hyperlipidemia E78.2 Active confirmed 078159170 Problem Gastroesophageal reflux disease without esophagitis K21.9 Active confirmed [id number] ALLERGIES Allergen (clinical drug ingredient) Drug/Non Drug Allergy do cumented on EMR Reaction Allergy Type Onset Date Status Penicillin (For Allergies Use Only) Rash Drug Allerg y Active nisoldipine Sular(NDC Code:[address]-00) Rash Drug Allergy Active aspirin Aspirin(NDC Code:[address]-08) Nausea/Vomiting Drug Aller gy Active codeine Codeine Sulfate(NDC Code:[address]-52) Rash Drug Al lergy Active erythromycin Erythromycin(NDC Code:[address]-47) Rash Drug All ergy Active ENCOUNTERS from 1945 to 2021-05-04 Encounter Location Date Provider Diagnosis [facility] Resident [phone] [place] [address] Apr, Juancho Holley Mixed hyperlipidemia E78.2 IMMUNIZATIONS Vaccine Route Administration Date Status Zoster 50mcg/0.5mL Shingrix Unknown March 15, 2019 Admi nistered Influenza (High Dose 65 & up) Unknown Jul 15, 2017 Ad ministered Pneumococcal Adult 0.5mL Pneumovax 23 IM Intramuscular Jul 10 013 Administered Pneumococcal Adult 0.5mL Pneumovax 23 Unknown Jul 05 013 Administered TDAP 0.5mL (Boostrix) IM Intramuscular Dec 03, 2013 Administe red Influenza 6mo & up Fluzone Unknown Jul 05, 2015 Admin istered J&J/Mell COVID- 19 (given elsewhere) SARS-COV-2 vaccine, vector non- replicating, recombinant spike protein-Ad26, preservative free, 0.5 mL Unknown February 11, 2021 Administered Influenza 6mo & up Fluzone Unknown Aug 18, 2014 Admin istered Influenza (High Dose 65 & up) IM Intramuscular Aug 19, 2016 A dministered Influenza 6mo & up Fluzone IM Intramuscular Jul 10, 2013 Admi nistered Influenza 6mo & up Fluzone Unknown Jul 05, 2013 Admin istered SOCIAL HISTORY Tobacco Use: Social History Observation Description Date Details (start date - stop date) Never Smoker Sex Assigned At : Social History Observation Description Sex Assigned At Unknown Education: Question Answer Notes Level of Education: High School Audit Question Answer Notes Total Score: 0 Interpretation: Alcohol Education Sexual Hx: Question Answer Notes Had sex in the last 12 months (vaginal, oral, or anal)? No Drug and Alcohol Question Answer Notes Total Score: 0 Interpretation: No problems reported BMI Care Goal Follow-Up Question Answer Notes Above Normal BMI Follow-Up Dietary management educatio n, guidance, and counseling Tobacco Use: Question Answer Notes Are you a: never smoker never smoker REASON FOR REFERRAL No Information VITAL SIGNS No information MEDICATIONS Medication SIG (Take, Route, Frequency, Duration) Notes Start Da te End Date Status Baclofen 10 MG 1 tablet with food or milk p rn Orally Three times a day for 90 days May, Active Atorvastatin Calcium 80 MG 1 tablet Orally Once a day for 90 days Active Doxycycline Monohydrate 100 MG 1 capsule Orally bid for 7 day(s) Jan, Not-Taking Ibuprofen 600 MG 1 tablet with food or milk a s needed Orally Three times a day for 90 Active Caltrate 600+D 600-400 MG-UNIT 1 tablet with food Orally Onc e a day for 30 days Active Vitamin B12 1000 MCG 1 tablet Orally Once a day for 30 days Active Potassium Chloride 20 MEQ 1 packet with food Orally Once a day f or 7 day(s) Sep, Not-Taking Omeprazole 20mg 20mg 1 cap(s) oral daily for 90 days Active Debrox 6.5 % ears Otic twice daily for 30 days Active Claritin-D 12 Hour 5-120 MG 1 tablet as needed Orally daily for 90 da ys Active ICaps - 1 cap Orally Daily for [address]-3 Krill Oil 500 MG 1 cap Orally Daily for 30 days Active Aspir-81 81 MG 1 tablet Orally Once a day for 90 days Active Chlorthalidone 25 25 mg 1 tab(s) oral daily for 90 days Active Potassium Chloride 20 MEQ 1 packet with food Orally Once a day f or 7 day(s) Sep, Active Multiple Minerals-Vitamins - 1 tablet Orally daily for 90 days Active Vitamin D-3 5000 UNIT 1 tablet Orally Once a day for 30 days Active metFORMIN HCl 1000 MG 1 tablet with a meal Orally bid for 30 day s Sep, Active Trulicity 0.75 MG/0.5ML as directed Subcutaneous weekly for 90 days Active Montse-C 500-550 MG 1 tab Orally Daily for 30 days Not-Taking Potassium Chloride ER 20 MEQ 1 tablet with food Orally Once a day for 14 Active Azo Tabs 95 MG 1 tab Orally Daily for 30 days Active Synthroid 75 75 mcg 1 tablet Oral daily for 90 days Active Meclizine HCl 25 mg 1 tablet Orally three times daily as needed for vertigo for 90 days Active PROCEDURES No Information RESULTS No Results REASON FOR VISIT New Refill Request MEDICAL (GENERAL) HISTORY Type Description Date Medical History GERD Medical History HTN goal < 140/90 per JNC 8 Medical History 16.8% 10 yr ASCVD Risk (2018) Medical History Sciatica Medical History T2DM on Trulicity (hospitalized 09/09-09/10 DKA) Medical History J&J COVID dose administered 02/11/2021 Surgical History Denies surgery Hospitalization History DKA 09/2019 Goals Section No Information Health Concerns No Information MEDICAL EQUIPMENT No Information MENTAL STATUS No Information FUNCTIONAL STATUS No Information ASSESSMENTS Encounter Date Diagnosis Assessment Notes Treatment Notes Treatm ent Clinical Notes Apr, Mixed hyperlipidemia (ICD-10 - E78.2) PLAN OF TREATMENT Medication Medication Name Sig Start Date Stop Date metFORMIN HCl 1000 MG 1 tablet with a meal Orally bid for 30 day s 10 Dec, 2019 Potassium Chloride 20 MEQ 1 packet with food Orally Once a d ay for 7 day(s) Sep, Potassium Chloride ER 20 MEQ 1 tablet with food Orally Once a da y for 14 Caltrate 600+D 600-400 MG-UNIT 1 tablet with food Orally Onc e a day for 30 days Atorvastatin Calcium 80 MG 1 tablet Orally Once a day for 90 day s Ibuprofen 600 MG 1 tablet with food or milk a s needed Orally Three times a day for 90 Insurance Providers Payer Name Payer Address Payer Phone Insured Name Patient Relati onship to Insured Coverage Start Date Coverage End Date MEDICARE BLUE PPO [address] [facility] [place] [place] [id number] [employer] self
--- OUTSIDE RECORDS SUMMARY | 2021-07-29 09:45 | CCD ---
Author Author [facility] Address Unknown Phone Unavailable Support Name Relationship Address Phone RE Next Of Kin Unknown Unavailable RETIRED Next Of Kin Unknown UE Next Of Kin Unknown Unavailable RACHEL ÁLVAREZ Next Of Kin [address] [place] [address] Rachel Álvarez ECON [address] [place] [address] [phone] Re-disclosure Warning The records that you are about to access may contain information from federally-assisted alcohol or drug abuse programs. If such information is present, then the following federally mandated warning applies: This information has been disclosed to you from records protected by federal confidentiality rules (42 CFR part 2). The federal rules prohibit you from making any further disclosure of this information unless further disclosure is expressly permitted by the written consent of the person to whom it pertains or as otherwise permitted by 42 CFR part 2. A general authorization for the release of medical or other information is NOT sufficient for this purpose. The Federal rules restrict any use of the information to criminally investigate or prosecute any alcohol or drug abuse patient.The records that you are about to access may contain highly sensitive health information, the redisclosure of which is protected by Article 27-F of the [facility] Public Health law. If you continue you may have access to information: Regarding HIV / AIDS; Provided by facilities licensed or operated by the [facility] Office of Mental Health; or Provided by the [facility] Office for People With Developmental Disabilities. If such information is present, then the following [facility] mandated warning applies: This information has been disclosed to you from confidential records which are protected by state law. State law prohibits you from making any further disclosure of this information without the specific written consent of the person to whom it pertains, or as otherwise permitted by law. Any unauthorized further disclosure in violation of state law may result in a fine or fci sentence or both. A general authorization for the release of medical or other information is NOT sufficient authorization for further disc losure. Encounters Encounter Providers Location Date Indications Data Source(s ) [place] [address] [facility] [address] 05/03/2021 12:00:00 AM EDT eCW1 [facility] [place] [address] [facility] [place] [address] 04/20/2021 12:00:00 AM EDT eCW1 ([facility] [place] [address] [facility] [place] [address] 04/18/2021 12:00:00 AM EDT [facility]1 ([facility]) [place] [address] [facility] [address] 04/15/2021 12:00:00 AM EDT eCW1 ([facility] [place] [address] [facility] [place] [address] 04/10/2021 12:00:00 AM EDT eCW1 [facility] [place] [address] [facility] [place] [address] 04/05/2021 12:00:00 AM EDT eCW1 ([facility] Out[place] [address] [facility] [place] [address] 03/29/2021 12:00:00 AM EDT eCW1 ([facility]) [place] [address] [facility] [place] [address] 03/29/2021 12:00:00 AM EDT eCW1 ([facility] [place] [address] [facility] [address] 02/15/2021 12:00:00 AM EDT eCW1 ([facility]) [place] [address] [facility] [address] 02/11/2021 12:00:00 AM EDT eCW1 ([facility]) [place] [address] [facility] [place] [address] 01/20/2021 12:00:00 AM EDT eCW1 ([facility]) [place] [address] [facility] [address] 01/14/2021 12:00:00 AM EDT eCW1 ([facility]) [place] [address] [facility] [address] 01/12/2021 12:00:00 AM EDT eCW1 ([facility] [place] [address] [facility] [address] 12/08/2020 12:00:00 AM EST eCW1 ([facility]) [place] [address] [facility] [address] 11/26/2020 12:00:00 AM EST eCW1 ([facility]) [place] [address] [facility] [address] 11/14/2020 12:00:00 AM EST eCW1 ([facility] Out[place] [address] [facility] [address] 11/13/2020 12:00:00 AM EST eCW1 ([facility]) [place] [address] [facility] [address] 10/29/2020 12:00:00 AM EST eCW1 ([facility]) [place] [address] [facility] [address] 10/07/2020 12:00:00 AM EST eCW1 ([facility]) [place] [address] [facility] [address] 10/05/2020 12:00:00 AM EST eCW1 ([facility]) [place] [address] [facility] [address] 10/01/2020 12:00:00 AM EST eCW1 ([facility]) [place] [address] [facility] [address] 09/28/2020 12:00:00 AM EST eCW1 ([facility]) [place] [address] [facility] [address] 09/28/2020 12:00:00 AM EST eCW1 ([facility]) [place] [address] [facility] [address] 09/14/2020 12:00:00 AM EST eCW1 ([facility]) [place] [address] [facility] [address] 09/11/2020 12:00:00 AM EST eCW1 ([facility]) [place] [address] [facility] [address] 09/09/2020 12:00:00 AM EST eCW1 ([facility]) [place] [address] [facility] [address] 09/07/2020 12:00:00 AM EST eCW1 ([facility]) Unknown [address] [facility] [place] [address] 09/04/2020 12:00:00 AM EST eCW1 ([facility]) [place] [address] [facility] [address] 08/07/2020 12:00:00 AM EDT eCW1 ([facility]) [place] [address] [facility] [address] 06/30/2020 12:00:00 AM EDT eCW1 ([facility]) Immunizations Vaccine Date Status Description Data Source(s) J&J/Mell COVID- 19 (given elsewhere) SARS-COV-2 vaccine, vector non- replicating, recombinant spike protein-Ad26, preservative free, 0.5 mL 02/11/2021 02:37:00 PM EDT completed eCW1 ([facility]) J&J/Mell COVID- 19 (given elsewhere) SARS-COV-2 vaccine, vector non- replicating, recombinant spike protein-Ad26, preservative free, 0.5 mL 02/11/2021 02:37:00 PM EDT completed eCW1 ([facility]) J&J/Mell COVID- 19 (given elsewhere) SARS-COV-2 vaccine, vector non- replicating, recombinant spike protein-Ad26, preservative free, 0.5 mL 02/11/2021 02:37:00 PM EDT completed eCW1 ([facility]) &J/Mell COVID- 19 (given elsewhere) SARS-COV-2 vaccine, vector non- replicating, recombinant spike protein-Ad26, preservative free, 0.5 mL 02/11/2021 02:37:00 PM EDT completed eCW1 ([facility]) J&J/Mell COVID- 19 (given elsewhere) SARS-COV-2 vaccine, vector non- replicating, recombinant spike protein-Ad26, preservative free, 0.5 mL 02/11/2021 02:37:00 PM EDT completed eCW1 (Critical access hospital) &/[facility] COVID- 19 (given elsewhere) SARS-COV-2 vaccine, vector non- replicating, recombinant spike protein-Ad26, preservative free, 0.5 mL 02/11/2021 02:37:00 PM EDT completed eCW1 ([facility]) J&J/Mell COVID- 19 (given elsewhere) SARS-COV-2 vaccine, vector non- replicating, recombinant spike protein-Ad26, preservative free, 0.5 mL 02/11/2021 02:37:00 PM EDT completed eCW1 ([facility]) J&J/Mell COVID- 19 (given elsewhere) SARS-COV-2 vaccine, vector non- replicating, recombinant spike protein-Ad26, preservative free, 0.5 mL 02/11/2021 02:37:00 PM EDT completed eCW1 ([facility] hospital) COVID-19 VACCINE Mell 02/11/2021 12:00:00 AM EDT completed [employer] Vaccine Series Complete: YESThis Data wa s Submitted to [facility] [employer]. Medications Medication Brand Name Start Date Product Form Dose Route Admi nistrative Instructions Pharmacy Instructions Status Indications Reaction Description Data Source(s) Potassium Chloride 20 MEQ Extended Relea se Oral Tablet Potassium Chloride ER 20 MEQ Potassium Chloride ER 20 MEQ 04/21/2021 12:00:00 AM EDT 1.0 {tablet_with_food} active Potassium Chl oride ER 20 MEQ eCW1 ([facility]) Potassium Chloride 20 MEQ Extended Relea se Oral Tablet Potassium Chloride ER 20 MEQ Potassium Chloride ER 20 MEQ 04/21/2021 12:00:00 AM EDT 1.0 {tablet_with_food} active Potassium Chl oride ER 20 MEQ eCW1 ([facility]) Potassium Chloride 20 MEQ Extended Relea se Oral Tablet Potassium Chloride ER 20 MEQ Potassium Chloride ER 20 MEQ 04/19/2021 12:00:00 AM EDT 1.0 {tablet_with_food} active Potassium Chl oride ER 20 MEQ eCW1 ([facility]) Potassium Chloride 20 MEQ Extended Relea se Oral Tablet Potassium Chloride ER 20 MEQ Potassium Chloride ER 20 MEQ 04/19/2021 12:00:00 AM EDT 1.0 {tablet_with_food} active Potassium Chl oride ER 20 MEQ eCW1 ([facility]) Potassium Chloride 20 MEQ Extended Relea se Oral Tablet Potassium Chloride ER 20 MEQ Potassium Chloride ER 20 MEQ 04/19/2021 12:00:00 AM EDT 1.0 {tablet_with_food} active Potassium Chl oride ER 20 MEQ eCW1 ([facility]) Potassium Chloride 20 MEQ Extended Relea se Oral Tablet Potassium Chloride ER 20 MEQ Potassium Chloride ER 20 MEQ 04/19/2021 12:00:00 AM EDT 1.0 {tablet_with_food} active Potassium Chl oride ER 20 MEQ eCW1 ([facility]) Ibuprofen 600 MG Oral Tablet Ibuprofen 600 MG 01/18/2021 12:00:00 AM E DT active Ibuprofen 600 MG eCW1 ([facility]) Ibuprofen 600 MG Oral Tablet Ibuprofen 600 MG 01/18/2021 12:00:00 AM E DT active Ibuprofen 600 MG eCW1 ([facility]) Ibuprofen 600 MG Oral Tablet Ibuprofen 600 MG 01/18/2021 12:00:00 AM E DT active Ibuprofen 600 MG eCW1 ([facility]) Ibuprofen 600 MG Oral Tablet Ibuprofen 600 MG 01/18/2021 12:00:00 AM E DT active Ibuprofen 600 MG eCW1 ([facility]) Ibuprofen 600 MG Oral Tablet Ibuprofen 600 MG 01/18/2021 12:00:00 AM E DT active Ibuprofen 600 MG eCW1 ([facility]) Ibuprofen 600 MG Oral Tablet Ibuprofen 600 MG 01/18/2021 12:00:00 AM E DT active Ibuprofen 600 MG eCW1 ([facility]) Ibuprofen 600 MG Oral Tablet Ibuprofen 600 MG 01/18/2021 12:00:00 AM E DT active Ibuprofen 600 MG eCW1 ([facility]) Ibuprofen 600 MG Oral Tablet Ibuprofen 600 MG 01/18/2021 12:00:00 AM E DT active Ibuprofen 600 MG eCW1 ([facility]) Ibuprofen 600 MG Oral Tablet Ibuprofen 600 MG 01/18/2021 12:00:00 AM E DT active Ibuprofen 600 MG eCW1 ([facility]) Ibuprofen 600 MG Oral Tablet Ibuprofen 600 MG 01/18/2021 12:00:00 AM E DT active Ibuprofen 600 MG eCW1 ([facility]) Ibuprofen 600 MG Oral Tablet Ibuprofen 600 MG 01/18/2021 12:00:00 AM E DT active Ibuprofen 600 MG eCW1 ([facility]) Insurance Providers Payer name Policy type / Coverage type Policy ID Covered alliance party ID Covered alliance party's relationship to moeller Policy Moeller Plan Information MEDICARE BLUE PPO 306 [id number] SP [id number] MEDICARE BLUE PPO 306 [id number] [id number] [id number] S [id number] ANSI-Medicare Part B [id number] ANSI-Medicare Part B [id number] ANSI-Medicare Part B [id number] MEDICARE BLUE PPO [id number] SP [id number] [employer] BCBS P [id number] S [id number] MEDICARE BLUE PPO P [id number] S [id number] MEDICARE BLUE PPO P [id number] S [id number] CLM#[id number] CLM #[id number] Problems, Conditions, and Diagnoses No Information Surgeries/Procedures No Information Results ID Date Data Source Basic Metabolic Profile (BMP) 03/31/2021 12:00:00 AM EDT eCW 1 ([facility]) Name Value Range Interpretation Code Description Data Joanne rce(s) Supporting Document(s) 0.53 0.55-1.30 CREATININE FOR GFR eCW1 ([facility]) 101 70-100 GLUCOSE, FASTING eCW1 ([facility]) 11 7-18 BLOOD UREA NITROGEN eCW1 ([facility]) > 60.0 >39 GLOMERULAR FILTRATION RATE eCW 1 ([facility]) 133 136-145 SODIUM LEVEL eCW1 ([facility]) 3.7 3.5-5.1 POTASSIUM SERUM eCW1 ([facility]) 96 98-107 CHLORIDE LEVEL eCW1 ([facility]) 10.0 8.8-10.2 CALCIUM LEVEL eCW1 ([facility]) 32 21-32 CARBON DIOXIDE LEVEL eCW1 ([facility]) ID Date Data Source LIPID PANEL (CARDIAC RISK) 03/31/2021 12:00:00 AM EDT eCW1 ( [facility]) Name Value Range Interpretation Code Description Data Joanne rce(s) Supporting Document(s) Triglyceride [Mass/volume] in Serum or Plasma by calculation 59 <150 TRIGLYCERIDES LEVEL eCW1 ([facility]) Cholesterol in LDL [Mass/volume] in Serum or Plasma by calculation 60 <100 LDL CHOLESTEROL eCW1 ([facility]) 72 NON-HDL-C eCW1 ([facility]) Cholesterol [Moles/volume] in Serum or Plasma 161 <200 CHOLESTEROL LEVEL eCW1 ([facility]) Cholesterol in HDL [Moles/volume] in Serum or Plasma 89 >40 HDL CHOLESTEROL eCW1 ([facility]) 1.808 <5 CHOLESTEROL RISK RATIO eCW1 ([facility]) ID Date Data Source [id number] 02/15/2021 12:00:00 AM EDT eCW1 ([facility]) Name Value Range Interpretation Code Description Data Joanne rce(s) Supporting Document(s) Albumin/Creatinine [Mass Ratio] in Urine 5.4 MALB URINE SIEMENS eCW1 ([facility]) Microalbumin/Creatinine [Mass Ratio] in Urine 44.4 CREATININE, URINE eCW1 ([facility]) Microalbumin/Creatinine [Ratio] in Urine 12.1 0.0-30.0 CANDICE/CREAT RATIO eCW1 ([facility]) ID Date Data Source [id number] 02/15/2021 12:00:00 AM EDT eCW1 ([facility]) Name Value Range Interpretation Code Description Data Joanne rce(s) Supporting Document(s) Hemoglobin A1c/Hemoglobin.total in Blood 6.1 HEMOGLOBIN A1c eCW1 ([facility]) Procedure Social History Code Duration Value Status Description Data Source(s ) Smoking 03/29/2021 12:00:00 AM EDT Never Smoker completed Never S moker eCW1 ([facility]) Smoking 03/29/2021 12:00:00 AM EDT Never Smoker completed Never S moker eCW1 ([facility]) Smoking 03/29/2021 12:00:00 AM EDT Never Smoker completed Never S moker eCW1 ([facility]) Smoking 03/29/2021 12:00:00 AM EDT Never Smoker completed Never S moker eCW1 ([facility]) Smoking 03/29/2021 12:00:00 AM EDT Never Smoker completed Never S moker eCW1 ([facility]) Smoking 03/29/2021 12:00:00 AM EDT Never Smoker completed Never S moker eCW1 ([facility]) Smoking 03/29/2021 12:00:00 AM EDT Never Smoker completed Never S moker eCW1 ([facility]) Smoking 03/29/2021 12:00:00 AM EDT Never Smoker completed Never S moker eCW1 ([facility]) Smoking 02/15/2021 12:00:00 AM EDT Never Smoker completed Never S moker eCW1 ([facility]) Smoking 02/12/2021 12:00:00 AM EDT Never Smoker completed Never S moker eCW1 ([facility]) Smoking 12/28/2020 12:00:00 AM EDT Never Smoker completed Never S moker eCW1 ([facility]) Smoking 12/28/2020 12:00:00 AM EDT Never Smoker completed Never S moker eCW1 ([facility]) Smoking 12/28/2020 12:00:00 AM EDT Never Smoker completed Never S moker eCW1 ([facility]) Smoking 12/28/2020 12:00:00 AM EDT Never Smoker completed Never S moker eCW1 ([facility]) Smoking 11/13/2020 12:00:00 AM EST Never Smoker completed Never S moker eCW1 ([facility]) Smoking 11/13/2020 12:00:00 AM EST Never Smoker completed Never S moker eCW1 ([facility]) Smoking 11/13/2020 12:00:00 AM EST Never Smoker completed Never S moker eCW1 ([facility]) Vital Signs ID Date Data Source UNK Name Value Range Interpretation Code Description Data Source(s) Body weight 133.0 [lb_av] 133.0 [lb_av] eCW1 ([facility]) Body height 62 [in_i] 62 [in_i] eCW1 ([facility]) Body mass index (BMI) [Ratio] 24.32 kg/m2 24.32 kg/m2 eCW1 ([facility]) Heart rate 94 /min 94 /min eCW1 ([facility]) Respiratory rate 18 /min 18 /min eCW1 ([facility]) Body temperature 97.9 [degF] 97.9 [degF] eCW1 ( [facility]) Systolic blood pressure 136 mm[Hg] 136 mm[Hg] e CW1 ([facility]) Diastolic blood pressure 80 mm[Hg] 80 mm[Hg] eCW1 ([facility]) Body weight 136.8 [lb_av] 136.8 [lb_av] eCW1 ([facility]) Body height 62 [in_i] 62 [in_i] eCW1 ([facility]) Body mass index (BMI) [Ratio] 25.02 kg/m2 25.02 kg/m2 eCW1 ([facility]) Heart rate 88 /min 88 /min eCW1 ([facility]) Respiratory rate 18 /min 18 /min eCW1 ([facility]) Body temperature 99 [degF] 99 [degF] eCW1 ([facility]) Systolic blood pressure 132 mm[Hg] 132 mm[Hg] e CW1 ([facility]) Diastolic blood pressure 82 mm[Hg] 82 mm[Hg] eCW1 ([facility]) Body weight 138 [lb_av] 138 [lb_av] eCW1 ([facility]) Body height 62 [in_i] 62 [in_i] eCW1 ([facility]) Body mass index (BMI) [Ratio] 25.24 kg/m2 25.24 kg/m2 eCW1 ([facility]) Heart rate 98 /min 98 /min eCW1 ([facility]) Respiratory rate 18 /min 18 /min eCW1 ([facility]) Body temperature 98.3 [degF] 98.3 [degF] eCW1 ( [facility]) Systolic blood pressure 136 mm[Hg] 136 mm[Hg] e CW1 ([facility]) Diastolic blood pressure 80 mm[Hg] 80 mm[Hg] eCW1 ([facility]) Patient Treatment Plan of Care Planned Activity Planned Date Details Description Data Source (s) Potassium Chloride 20 MEQ Extended Release Oral Tablet 04/21/2021 12:00:00 AM EDT eCW1 ([facility]) Potassium Chloride 20 MEQ Extended Release Oral Tablet 04/21/2021 12:00:00 AM EDT eCW1 ([facility]) Potassium Chloride 20 MEQ Extended Release Oral Tablet 04/19/2021 12:00:00 AM EDT eCW1 ([facility]) Potassium Chloride 20 MEQ Extended Release Oral Tablet 04/19/2021 12:00:00 AM EDT eCW1 ([facility]) Potassium Chloride 20 MEQ Extended Release Oral Tablet 04/19/2021 12:00:00 AM EDT eCW1 ([facility]) Potassium Chloride 20 MEQ Extended Release Oral Tablet 04/19/2021 12:00:00 AM EDT eCW1 ([facility]) Ibuprofen 600 MG Oral Tablet 01/18/2021 12:00:00 AM EDT eCW1 ([facility]) Ibuprofen 600 MG Oral Tablet 01/18/2021 12:00:00 AM EDT eCW1 ([facility]) Ibuprofen 600 MG Oral Tablet 01/18/2021 12:00:00 AM EDT eCW1 ([facility])
--- OUTSIDE RECORDS SUMMARY | 2021-07-29 09:45 | CCD ---
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 Name Role Phone Juancho Holley Unavailable PROBLEMS Type Condition ICD9-CM Code [id number] Code Onset Dates Condition S tatus W/U Status Risk SNOMED Code Notes Problem Seasonal allergies J30.2 Active confirmed 4 07040670 Problem Type 2 diabetes mellitus wit hout complication, without long-term current use of insulin E11.9 Active confirmed 552219348 Problem Hypothyroidism (acquired) E03.9 Active confirmed 228828538 Problem Essential (primary) hypertension I10 Active conf irmed [id number] Problem Mixed hyperlipidemia E78.2 Active confirmed 894323902 Problem Gastroesophageal reflux disease without esophagitis K21.9 Active confirmed 889669116 ALLERGIES Allergen (clinical drug ingredient) Drug/Non Drug Allergy do cumented on EMR Reaction Allergy Type Onset Date Status Penicillin (For Allergies Use Only) Rash Drug Allerg y Active nisoldipine Sular(NDC Code:[address]-21) Rash Drug Allergy Active aspirin Aspirin(NDC Code:[address]-14) Nausea/Vomiting Drug Aller gy Active codeine Codeine Sulfate(NDC Code:[address]-77) Rash Drug Al lergy Active erythromycin Erythromycin(NDC Code:[address]-20) Rash Drug All ergy Active ENCOUNTERS from 1945 to 2021-05-02 Encounter Location Date Provider Diagnosis [facility] Resident [address] [phone] [place] [address] Mar, Juancho Holley Type 2 diabetes issa itus without complication, without long-term current use of insulin E11.9 ; Hypokalemia E87.6 and Mixed hyperlipidemia E78.2 IMMUNIZATIONS Vaccine Route Administration Date Status Pneumococcal Adult 0.5mL Pneumovax 23 Unknown Jul 05 Administered J&J/Mell COVID- 19 (given elsewhere) SARS-COV-2 vaccine, vector non- replicating, recombinant spike protein-Ad26, preservative free, 0.5 mL Unknown February 11, 2021 Administered Zoster 50mcg/0.5mL Shingrix Unknown March 15, 2019 Admi nistered Influenza (High Dose 65 & up) Unknown Jul 15, 2017 Ad ministered TDAP 0.5mL (Boostrix) IM Intramuscular Dec 03, 2013 Administe red Influenza 6mo & up Fluzone Unknown Jul 05, 2015 Admin istered Pneumococcal Adult 0.5mL Pneumovax 23 IM Intramuscular Jul 10 Administered Influenza 6mo & up Fluzone Unknown [...] REASON FOR REFERRAL No Information VITAL SIGNS Weight 133.0 lbs Mar, Height 62 in Mar, BMI 24.32 kg/m2 Mar, Heart Rate 94 /min Mar, Respiratory Rate 18 /min Mar, Temperature 97.9 degrees Fahrenheit Mar, Oximetry 98 Mar, Blood pressure systolic 136 mm Hg Mar, Blood pressure diastolic 80 mm Hg Mar, MEDICATIONS Medication SIG (Take, Route, Frequency, Duration) Notes Start Da te End Date Status ICaps - 1 cap Orally Daily for 30 days Active Montse-C 500-550 MG 1 tab Orally Daily for 30 days Not-Taking MegaRed Datto-3 Krill Oil 500 MG 1 cap Orally Daily for 30 days Active Debrox 6.5 % ears Otic twice daily for 30 days Active Vitamin B12 1000 MCG 1 tablet Orally Once a day for 30 days Active metFORMIN HCl 1000 MG 1 tablet with a meal Orally bid for 30 day s Sep, Active Ibuprofen 600 MG 1 tablet with food or milk a s needed Orally Three times a day for 90 days Jan, Active Trulicity 0.75 MG/0.5ML as directed Subcutaneous weekly for 90 days Active Vitamin D-3 5000 UNIT 1 tablet Orally Once a day for 30 days Active Caltrate 600+D 600-400 MG-UNIT 1 tablet with food Orally Onc e a day for 30 days Active Chlorthalidone 25 25 mg 1 tab(s) oral daily for 90 days Active Potassium Chloride ER 20 MEQ 1 tablet with food Orally Once a day for 30 day(s) Apr, Active Doxycycline Monohydrate 100 MG 1 capsule Orally bid for 7 day(s) Jan, Not-Taking Meclizine HCl 25 mg 1 tablet Orally three times daily as needed for vertigo for 90 days Active Potassium Chloride ER 20 MEQ 1 tablet with food Orally Once a day for 14 day(s) Apr, Active Multiple Minerals-Vitamins - 1 tablet Orally daily for 90 days Active Potassium Chloride 20 MEQ 1 packet with food Orally Once a day f or 7 day(s) Sep, Not-Taking Aspir-81 81 MG 1 tablet Orally Once a day for 90 days Active Azo Tabs 95 MG 1 tab Orally Daily for 30 days Active Baclofen 10 MG 1 tablet with food or milk p rn Orally Three times a day for 90 days May, Active Synthroid 75 75 mcg 1 tablet Oral daily for 90 days Active Omeprazole 20mg 20mg 1 cap(s) oral daily for 90 days Active Potassium Chloride 20 MEQ 1 packet with food Orally Once a day f or 7 day(s) Sep, Active Claritin-D 12 Hour 5-120 MG 1 tablet as needed Orally daily for 90 da ys Active Atorvastatin Calcium 80 MG 1 tablet Orally Once a day for 90 days Active PROCEDURES No Information RESULTS Component Value Reference Range LIPID PANEL (CARDIAC RISK) Reviewed date:04/03/2021 12:39:32 Interpretation: Performing Lab:[facility] [address] [address] , ,[place] [address] TRIGLYCERIDES LEVEL 59 <150 CHOLESTEROL LEVEL 161 <200 HDL CHOLESTEROL 89 >40 LDL CHOLESTEROL 60 <100 NON-HDL-C 72 CHOLESTEROL RISK RATIO 1.808 <5 Basic Metabolic Profile (BMP) Reviewed date:04/05/2021 17:07:30 Interpretation: Performing Lab:[facility] [address] [address] , ,[place] [address] GLUCOSE, FASTING 101 70-100 BLOOD UREA NITROGEN 11 7-18 CREATININE FOR GFR 0.53 0.55-1.30 GLOMERULAR FILTRATION RATE > 60.0 >39 SODIUM LEVEL 133 136-145 POTASSIUM SERUM 3.7 3.5-5.1 CHLORIDE LEVEL 96 98-107 CARBON DIOXIDE LEVEL 32 21-32 CALCIUM LEVEL 10.0 8.8-10.2 REASON FOR VISIT Follow up MEDICAL (GENERAL) HISTORY Type Description Date Medical History GERD Medical History HTN goal < 140/90 per [facility] 8 Medical History 16.8% 10 yr ASCVD Risk (2019) Medical History Sciatica Medical History T2DM on Trulicity (hospitalized 09/09-09/10 DKA) Medical History J&J COVID dose administered 02/11/2021 Surgical History Denies surgery Hospitalization History DKA 09/2019 Goals Section No Information Health Concerns No Information MEDICAL EQUIPMENT No Information MENTAL STATUS No Information FUNCTIONAL STATUS No Information ASSESSMENTS Encounter Date Diagnosis Assessment Notes Treatment Notes Treatm ent Clinical Notes Mar, Type 2 diabetes mellitus wit hout complication, without long-term current use of insulin (ICD-10 - E11.9) Patient has a history of type 2 diabetes mellitus with an HbA1c of 6.1 as of February 2021. Patient requires refills for her metformin. These have been placed. Mar, Hypokalemia (ICD-10 - E87.6) Patient takes oral potassium tablets for hypokalemia. BMP has been ordered to monitor potassium levels. Mar, Mixed hyperlipidemia (ICD-10 - E78.2) Patient is due for fasting lipid panel check. Fasting lipid panel has been ordered. Patient states that she will have both her BMP and fasting lipid panel done tomorrow morning. PLAN OF TREATMENT Medication Medication Name Sig Start Date Stop Date Caltrate 600+D 600-400 MG-UNIT 1 tablet with food Orally Onc e a day for 30 days Potassium Chloride 20 MEQ 1 packet with food Orally Once a d ay for 7 day(s) Sep, Potassium Chloride ER 20 MEQ 1 tablet with food Orally Once a day for 30 day(s) Apr, Potassium Chloride ER 20 MEQ 1 tablet with food Orally Once a day for 14 day(s) Apr, metFORMIN HCl 1000 MG 1 tablet with a meal Orally bid for 30 day s Sep, Treatment Notes Assessment Notes Clinical Notes Type 2 diabetes mellitus without complic ation, without long-term current use of insulin Patient has a history of typ e 2 diabetes mellitus with an HbA1c of 6.1 as of February 2021. Patient requires refills for her metformin. These have been placed. Hypokalemia Patient takes oral p otassium tablets for hypokalemia. BMP has been ordered to monitor potassium levels. Mixed hyperlipidemia Patient is due for fasting lipid panel check. Fasting lipid panel has been ordered. Patient states that she will have both her BMP and fasting lipid panel done tomorrow morning. Next Appt Details 3 Months Reason:type 2 diabetes Follow Up:3 Monthstype 2 diabetes Insurance Providers Payer Name Payer Address Payer Phone Insured Name Patient Relati onship to Insured Coverage Start Date Coverage End Date MEDICARE BLUE PPO [address] [id number] [place] self
--- NOTE | 2021-07-29 11:01 | REP ---
INDICATION: pain. COMPARISON: None. TECHNIQUE: AP pelvis, AP and frogleg right hip. FINDINGS: There is no acute fracture, dislocation or intrinsic bone disease. There are mild degenerative changes at each hip joint, with mild joint space narrowing, subchondral sclerosis and spurring. Multiple phleboliths are seen in the pelvis. IMPRESSION: Mild degenerative changes bilateral hips with no evidence of fracture or dislocation. <Electronically signed by Rashi Palomino > 07/29/21 [id number]
[2021-07-30] MEDS ORDERED: TRUL0.5I SC (00:36)
[2021-07-30] MEDS ORDERED: BACL1TAB8 PO (00:36)
[2021-07-30] MEDS ORDERED: ALAVTAB PO (00:36)
[2021-07-30] MEDS ORDERED: TRAM50TA2 PO (04:54)
[2021-07-30] MEDS ORDERED: LORA-674 PO (06:00)
[2021-07-30] MEDS ORDERED: TRUL10IN SQ (06:00)
[2021-07-30] MEDS ORDERED: METF10004 PO (06:00)
[2021-07-30] MEDS ORDERED: OMEP1CAP73 PO (06:00)
[2021-07-30] MEDS ORDERED: POTA10TA17 PO (06:00)
== END 2021-07-29 11:34 | disposition home or self-care (01) ==
LOC: M ED 09:32
DX: M79.651 Pain in right thigh (principal); K21.9 Gastro-esophageal reflux disease without esophagitis; E11.9 Type 2 diabetes mellitus without complications; I10 Essential (primary) hypertension; Z88.0 Allergy status to penicillin; Z88.6 Allergy status to analgesic agent; Z88.1 Allergy status to other antibiotic agents; Z88.2 Allergy status to sulfonamides

== ENCOUNTER 2021-07-30 00:11 | Inpatient (IN) | payer MEDICARE ==
[~2021-07-30] VITALS: Ht 157.5 cm; Wt 62.5 kg
[2021-07-30] MEDS ORDERED: ALAVTAB PO (00:36)
[2021-07-30] MEDS ORDERED: TRUL0.5I SC (00:36)
[2021-07-30] MEDS ORDERED: BACL1TAB8 PO (00:36)
[2021-07-30] MEDS ORDERED: traMADol 50 MG TAB PO ONE (01:15)
--- OUTSIDE RECORDS SUMMARY | 2021-07-30 02:36 | CCD ---
Author Author [facility] Address Unknown Phone Unavailable Support Name Relationship Address Phone RE Next Of Kin Unknown Unavailable RETIRED Next Of Kin Unknown UE Next Of Kin Unknown Unavailable STELLA ESTEVEZ Next Of Kin [id number] [place] [address] STELLA ESTEVEZ ECON [address] [place] [address] [phone] Re-disclosure Warning The records that you are [...] is protected by Article 27-F of the [facility] Public Health law. If you continue you may have access to information: Regarding HIV / AIDS; Provided by facilities licensed or operated by the [facility] Office of Mental Health; or Provided by the [facility] Office for People With Developmental Disabilities. If such information is present, then the following [facility] mandated warning applies: This information has been [...] law may result in a fine or chcf sentence or both. A general authorization for the release of medical or other information is NOT sufficient authorization for further disc losure. Encounters Encounter Providers Location Date Indications Data Source(s ) [place] [address] [facility] [address] 05/03/2021 12:00:00 AM EDT eCW1 ([facility]) [place] [address] [facility] [place] [address] 04/20/2021 12:00:00 AM EDT eCW1 ([facility]) [place] [address] [facility] [place] [address] 04/18/2021 12:00:00 AM EDT eCW1 ([facility] [place] [address] [facility] [address] 04/15/2021 12:00:00 AM EDT eCW1 ([facility]) [place] [address] [facility] [place] [address] 04/10/2021 12:00:00 AM EDT [facility] [place] [address] [facility] [place] [address] 04/05/2021 12:00:00 AM EDT eCW1 ([facility] [place] [address] [facility] [place] [address] 03/29/2021 12:00:00 AM EDT eCW1 ([facility]) [place] [address] [facility] [place] [address] 03/29/2021 12:00:00 AM EDT eCW1 ([facility] [place] [address] [facility] [address] 02/15/2021 12:00:00 AM EDT eCW1 ([facility]) [place] [address] [facility] [address] 02/11/2021 12:00:00 AM EDT eCW1 ([facility] [place] [address] [facility] [place] [address] 01/20/2021 12:00:00 AM EDT eCW1 ([facility]) [place] [address] [facility] [address] 01/14/2021 12:00:00 AM EDT eCW1 ([facility]) [place] [address] [facility] [address] 01/12/2021 12:00:00 AM EDT eCW1 ([facility]) [place] [address] [facility] [address] 12/08/2020 12:00:00 AM EST eCW1 ([facility]) [place] [address] [facility] [address] 11/26/2020 12:00:00 AM EST eCW1 ([facility]) [place] [address] [facility] [address] 11/14/2020 12:00:00 AM EST eCW1 ([facility]) [place] [address] [facility] [address] 11/13/2020 12:00:00 AM EST eCW1 ([facility]) [place] [address] [facility] [address] 10/29/2020 12:00:00 AM EST eCW1 ([facility]) [place] [address] [facility] [address] 10/07/2020 12:00:00 AM EST eCW1 ([facility]) [place] [address] [facility] [place] [address] 10/05/2020 12:00:00 AM EST eCW1 ([facility]) [place] [address] [facility] [place] [address] 10/01/2020 12:00:00 AM EST eCW1 ([facility]) [place] [address] [facility] [address] 09/28/2020 12:00:00 AM EST eCW1 ([facility]) [place] [address] [facility] [address] 09/28/2020 12:00:00 AM EST eCW1 ([facility]) [place] [address] [facility] [address] 09/14/2020 12:00:00 AM EST eCW1 ([facility]) [place] [address] [facility] [place] [address] 09/11/2020 12:00:00 AM EST eCW1 ([facility]) [place] [address] [facility] [address] 09/09/2020 12:00:00 AM EST eCW1 ([facility]) [place] [address] [facility] [place] [address] 09/07/2020 12:00:00 AM EST eCW1 ([facility]) [place] [address] [facility] [place] [address] 09/04/2020 12:00:00 AM EST eCW1 ([facility]) [place] [address] [facility] [address] 08/07/2020 12:00:00 AM EDT eCW1 ([facility]) [place] [address] [facility] [address] 06/30/2020 12:00:00 AM EDT eCW1 ([facility]) Immunizations Vaccine Date Status Description Data Source(s) J&J/Mell COVID- 19 (given elsewhere) SARS-COV-2 vaccine, vector non- replicating, recombinant spike protein-Ad26, preservative free, 0.5 mL 02/11/2021 02:37:00 PM EDT completed eCW1 ([facility]) J&J/Mell COVID- 19 (given elsewhere) SARS-COV-2 vaccine, vector non- replicating, recombinant spike protein-Ad26, preservative free, 0.5 mL 02/11/2021 02:37:00 PM EDT completed eCW1 ([facility]) J&J/Mell COVID- 19 (given elsewhere) SARS-COV-2 vaccine, vector non- replicating, recombinant spike protein-Ad26, preservative free, 0.5 mL 02/11/2021 02:37:00 PM EDT completed eCW1 ([facility]) &J/Mell COVID- 19 (given elsewhere) SARS-COV-2 vaccine, vector non- replicating, recombinant spike protein-Ad26, preservative free, 0.5 mL 02/11/2021 02:37:00 PM EDT completed eCW1 ([facility]) J&J/Mell COVID- 19 (given elsewhere) SARS-COV-2 vaccine, vector non- replicating, recombinant spike protein-Ad26, preservative free, 0.5 mL 02/11/2021 02:37:00 PM EDT completed eCW1 ([facility]) &/Mell COVID- 19 (given elsewhere) SARS-COV-2 vaccine, vector non- replicating, recombinant spike protein-Ad26, preservative free, 0.5 mL 02/11/2021 02:37:00 PM EDT completed eCW1 ([facility]) J&J/Mell COVID- 19 (given elsewhere) SARS-COV-2 vaccine, vector non- replicating, recombinant spike protein-Ad26, preservative free, 0.5 mL 02/11/2021 02:37:00 PM EDT completed eCW1 ([facility]) J&J/Mell COVID- 19 (given elsewhere) SARS-COV-2 vaccine, vector non- replicating, recombinant spike protein-Ad26, preservative free, 0.5 mL 02/11/2021 02:37:00 PM EDT completed eCW1 ([facility]) COVID-19 VACCINE Mell 02/11/2021 12:00:00 AM EDT completed DaojiaSIIS Vaccine Series Complete: YESThis Data wa s Submitted to [facility] Via [facility]. Medications Medication Brand Name Start Date Product Form Dose Route Admi nistrative Instructions Pharmacy Instructions Status Indications Reaction Description Data Source(s) Potassium Chloride 20 MEQ Extended Relea se Oral Tablet Potassium Chloride ER 20 MEQ Potassium Chloride ER 20 MEQ 04/21/2021 12:00:00 AM EDT 1.0 {tablet_with_food} active Potassium Chl oride ER 20 MEQ eCW1 ([facility]) Potassium Chloride 20 MEQ Extended Relea se Oral Tablet Potassium Chloride ER 20 MEQ Potassium Chloride ER 20 MEQ 04/21/2021 12:00:00 AM EDT 1.0 {tablet_with_food} active Potassium Chl oride ER 20 MEQ eCW1 ([facility]) Potassium Chloride 20 MEQ Extended Relea se Oral Tablet Potassium Chloride ER 20 MEQ Potassium Chloride ER 20 MEQ 04/19/2021 12:00:00 AM EDT 1.0 {tablet_with_food} active Potassium Chl oride ER 20 MEQ eCW1 ([facility]) Potassium Chloride 20 MEQ Extended Relea se Oral Tablet Potassium Chloride ER 20 MEQ Potassium Chloride ER 20 MEQ 04/19/2021 12:00:00 AM EDT 1.0 {tablet_with_food} active Potassium Chl oride ER 20 MEQ eCW1 ([facility]) Potassium Chloride 20 MEQ Extended Relea se Oral Tablet Potassium Chloride ER 20 MEQ Potassium Chloride ER 20 MEQ 04/19/2021 12:00:00 AM EDT 1.0 {tablet_with_food} active Potassium Chl oride ER 20 MEQ eCW1 ([facility]) Potassium Chloride 20 MEQ Extended Relea se Oral Tablet Potassium Chloride ER 20 MEQ Potassium Chloride ER 20 MEQ 04/19/2021 12:00:00 AM EDT 1.0 {tablet_with_food} active Potassium Chl oride ER 20 MEQ eCW1 ([facility]) Ibuprofen 600 MG Oral Tablet Ibuprofen 600 MG 01/18/2021 12:00:00 AM E DT active Ibuprofen 600 MG eCW1 ([facility]) Ibuprofen 600 MG Oral Tablet Ibuprofen 600 MG 01/18/2021 12:00:00 AM E DT active Ibuprofen 600 MG eCW1 ([facility]) Ibuprofen 600 MG Oral Tablet Ibuprofen 600 MG 01/18/2021 12:00:00 AM E DT active Ibuprofen 600 MG eCW1 ([facility]) Ibuprofen 600 MG Oral Tablet Ibuprofen 600 MG 01/18/2021 12:00:00 AM E DT active Ibuprofen 600 MG eCW1 ([facility]) Ibuprofen 600 MG Oral Tablet Ibuprofen 600 MG 01/18/2021 12:00:00 AM E DT active Ibuprofen 600 MG eCW1 ([facility]) Ibuprofen 600 MG Oral Tablet Ibuprofen 600 MG 01/18/2021 12:00:00 AM E DT active Ibuprofen 600 MG eCW1 ([facility]) Ibuprofen 600 MG Oral Tablet Ibuprofen 600 MG 01/18/2021 12:00:00 AM E DT active Ibuprofen 600 MG eCW1 ([facility]) Ibuprofen 600 MG Oral Tablet Ibuprofen 600 MG 01/18/2021 12:00:00 AM E DT active Ibuprofen 600 MG eCW1 ([facility]) Ibuprofen 600 MG Oral Tablet Ibuprofen 600 MG 01/18/2021 12:00:00 AM E DT active Ibuprofen 600 MG eCW1 ([facility]) Ibuprofen 600 MG Oral Tablet Ibuprofen 600 MG 01/18/2021 12:00:00 AM E DT active Ibuprofen 600 MG eCW1 ([facility]) Ibuprofen 600 MG Oral Tablet Ibuprofen 600 MG 01/18/2021 12:00:00 AM E DT active Ibuprofen 600 MG eCW1 ([facility]) Insurance Providers Payer name Policy type / Coverage type Policy ID Covered constitution party ID Covered constitution party's relationship to moeller Policy Moeller Plan Information MEDICARE BLUE PPO 306 [id number] SP [id number] MEDICARE BLUE PPO 306 [id number] [id number] [id number] S [id number] ANSI-Medicare Part B [id number] ANSI-Medicare Part B [id number] ANSI-Medicare Part B [id number] MEDICARE BLUE PPO 306 [id number] SP [id number] [employer] P [id number] S [id number] MEDICARE BLUE PPO P [id number] S [id number] MEDICARE BLUE PPO P [id number] S [id number] CLM#[id number] CLM #[id number] Problems, Conditions, and Diagnoses No Information Surgeries/Procedures No Information Results ID Date Data Source Basic Metabolic Profile (BMP) 03/31/2021 12:00:00 AM EDT eCW 1 ([facility]) Name Value Range Interpretation Code Description Data Joanne rce(s) Supporting Document(s) 0.53 0.55-1.30 CREATININE FOR GFR eCW1 ([facility]) 101 70-100 GLUCOSE, FASTING eCW1 ([facility]) 11 7-18 BLOOD UREA NITROGEN eCW1 ([facility]) > 60.0 >39 GLOMERULAR FILTRATION RATE eCW 1 ([facility]) 133 136-145 SODIUM LEVEL eCW1 ([facility]) 3.7 3.5-5.1 POTASSIUM SERUM eCW1 ([facility]) 96 98-107 CHLORIDE LEVEL eCW1 ([facility]) 10.0 8.8-10.2 CALCIUM LEVEL eCW1 ([facility]) 32 21-32 CARBON DIOXIDE LEVEL eCW1 ([facility]) ID Date Data Source LIPID PANEL (CARDIAC RISK) 03/31/2021 12:00:00 AM EDT eCW1 ( [facility]) Name Value Range Interpretation Code Description Data Joanne rce(s) Supporting Document(s) Triglyceride [Mass/volume] in Serum or Plasma by calculation 59 <150 TRIGLYCERIDES LEVEL eCW1 ([facility]) Cholesterol in LDL [Mass/volume] in Serum or Plasma by calculation 60 <100 LDL CHOLESTEROL eCW1 ([facility]) 72 NON-HDL-C eCW1 ([facility]) Cholesterol [Moles/volume] in Serum or Plasma 161 <200 CHOLESTEROL LEVEL eCW1 ([facility]) Cholesterol in HDL [Moles/volume] in Serum or Plasma 89 >40 HDL CHOLESTEROL eCW1 ([facility]) 1.808 <5 CHOLESTEROL RISK RATIO eCW1 ([facility]) ID Date Data Source [id number] 02/15/2021 12:00:00 AM EDT eCW1 ([facility]) Name Value Range Interpretation Code Description Data Joanne rce(s) Supporting Document(s) Albumin/Creatinine [Mass Ratio] in Urine 5.4 MALB URINE SIEMENS eCW1 ([facility]) Microalbumin/Creatinine [Mass Ratio] in Urine 44.4 CREATININE, URINE eCW1 ([facility]) Microalbumin/Creatinine [Ratio] in Urine 12.1 0.0-30.0 CANDICE/CREAT RATIO eCW1 ([facility]) ID Date Data Source [id number] 02/15/2021 12:00:00 AM EDT eCW1 ([facility]) Name Value Range Interpretation Code Description Data Joanne rce(s) Supporting Document(s) Hemoglobin A1c/Hemoglobin.total in Blood 6.1 HEMOGLOBIN A1c eCW1 ([facility]) Procedure Social History Code Duration Value Status Description Data Source(s ) Smoking 03/29/2021 12:00:00 AM EDT Never Smoker completed Never S moker eCW1 ([facility]) Smoking 03/29/2021 12:00:00 AM EDT Never Smoker completed Never S moker eCW1 ([facility]) Smoking 03/29/2021 12:00:00 AM EDT Never Smoker completed Never S moker eCW1 ([facility]) Smoking 03/29/2021 12:00:00 AM EDT Never Smoker completed Never S moker eCW1 ([facility]) Smoking 03/29/2021 12:00:00 AM EDT Never Smoker completed Never S moker eCW1 ([facility]) Smoking 03/29/2021 12:00:00 AM EDT Never Smoker completed Never S moker eCW1 ([facility]) Smoking 03/29/2021 12:00:00 AM EDT Never Smoker completed Never S moker eCW1 ([facility]) Smoking 03/29/2021 12:00:00 AM EDT Never Smoker completed Never S moker eCW1 ([facility]) Smoking 02/15/2021 12:00:00 AM EDT Never Smoker completed Never S moker eCW1 ([facility]) Smoking 02/12/2021 12:00:00 AM EDT Never Smoker completed Never S moker eCW1 ([facility]) Smoking 12/28/2020 12:00:00 AM EDT Never Smoker completed Never S moker eCW1 ([facility]) Smoking 12/28/2020 12:00:00 AM EDT Never Smoker completed Never S moker eCW1 ([facility]) Smoking 12/28/2020 12:00:00 AM EDT Never Smoker completed Never S moker eCW1 ([facility]) Smoking 12/28/2020 12:00:00 AM EDT Never Smoker completed Never S moker eCW1 ([facility]) Smoking 11/13/2020 12:00:00 AM EST Never Smoker completed Never S moker eCW1 ([facility]) Smoking 11/13/2020 12:00:00 AM EST Never Smoker completed Never S moker eCW1 ([facility]) Smoking 11/13/2020 12:00:00 AM EST Never Smoker completed Never S moker eCW1 ([facility]) Vital Signs ID Date Data Source UNK Name Value Range Interpretation Code Description Data Source(s) Body weight 133.0 [lb_av] 133.0 [lb_av] eCW1 ([facility]) Systolic blood pressure 136 mm[Hg] 136 mm[Hg] e CW1 ([facility]) Body height 62 [in_i] 62 [in_i] eCW1 ([facility]) Body mass index (BMI) [Ratio] 24.32 kg/m2 24.32 kg/m2 W1 ([facility]) Heart rate 94 /min 94 /min eCW1 ([facility]) Respiratory rate 18 /min 18 /min eCW1 ([facility]) Body temperature 97.9 [degF] 97.9 [degF] eCW1 ( [facility]) Diastolic blood pressure 80 mm[Hg] 80 mm[Hg] eCW1 ([facility]) Body weight 136.8 [lb_av] 136.8 [lb_av] eCW1 ([facility] Body height 62 [in_i] 62 [in_i] eCW1 ([facility]) Body mass index (BMI) [Ratio] 25.02 kg/m2 25.02 kg/m2 eCW1 ([facility]) Heart rate 88 /min 88 /min eCW1 ([facility]) Respiratory rate 18 /min 18 /min eCW1 ([facility]) Body temperature 99 [degF] 99 [degF] eCW1 ([facility]) Systolic blood pressure 132 mm[Hg] 132 mm[Hg] e CW1 ([facility]) Diastolic blood pressure 82 mm[Hg] 82 mm[Hg] eCW1 ([facility]) Body weight 138 [lb_av] 138 [lb_av] eCW1 ([facility]) Body height 62 [in_i] 62 [in_i] eCW1 ([facility]) Body mass index (BMI) [Ratio] 25.24 kg/m2 25.24 kg/m2 eCW1 ([facility]) Heart rate 98 /min 98 /min eCW1 ([facility]) Respiratory rate 18 /min 18 /min eCW1 ([facility]) Body temperature 98.3 [degF] 98.3 [degF] eCW1 ( [facility]) Systolic blood pressure 136 mm[Hg] 136 mm[Hg] e CW1 ([facility]) Diastolic blood pressure 80 mm[Hg] 80 mm[Hg] eCW1 ([facility]) Patient Treatment Plan of Care Planned Activity Planned Date Details Description Data Source (s) Potassium Chloride 20 MEQ Extended Release Oral Tablet 04/21/2021 12:00:00 AM EDT eCW1 ([facility]) Potassium Chloride 20 MEQ Extended Release Oral Tablet 04/21/2021 12:00:00 AM EDT eCW1 ([facility]) Potassium Chloride 20 MEQ Extended Release Oral Tablet 04/19/2021 12:00:00 AM EDT eCW1 ([facility]) Potassium Chloride 20 MEQ Extended Release Oral Tablet 04/19/2021 12:00:00 AM EDT eCW1 ([facility]) Potassium Chloride 20 MEQ Extended Release Oral Tablet 04/19/2021 12:00:00 AM EDT eCW1 ([facility]) Potassium Chloride 20 MEQ Extended Release Oral Tablet 04/19/2021 12:00:00 AM EDT eCW1 ([facility]) Ibuprofen 600 MG Oral Tablet 01/18/2021 12:00:00 AM EDT eCW1 ([facility]) Ibuprofen 600 MG Oral Tablet 01/18/2021 12:00:00 AM EDT eCW1 ([facility]) Ibuprofen 600 MG Oral Tablet 01/18/2021 12:00:00 AM EDT eCW1 ([facility])
--- NOTE | 2021-07-30 04:24 | REPVR ---
PROCEDURE INFORMATION: Exam: CT Lumbar Spine Without Contrast Exam date and time: 07/30/2021 1:23 AM Age: 75 years old Clinical indication: Sciatica and other: Right l3/4 radicular pain TECHNIQUE: Imaging protocol: Computed tomography images of the lumbar spine without contrast. Radiation optimization: All CT scans at this facility use at least one of these dose optimization techniques: automated exposure control; mA and/or kV adjustment per patient size (includes targeted exams where dose is matched to clinical indication); or iterative reconstruction. COMPARISON: CR Spine. Lumbosacral, complete 09/09/2019 12:52 PM FINDINGS: Vertebrae: Thoracolumbar scoliosis appears similar to the prior radiographs. There is grade 1 anterolisthesis at L4-L5 and L5-S1 and grade 1 retrolisthesis at L1-L2 and L2-L3. Mild kyphosis at the T12-L1 level. No acute compression fracture is seen. Discs/Spinal canal/Neural foramina: Advanced discogenic and facet degenerative changes throughout the lumbar spine and lower thoracic spine. There is severe central spinal canal stenosis at L3-L4 and L4-L5. Broad-based posterior disc bulge at L4-L5. Milder disc bulging at other levels. Milder central spinal stenosis is present in the lower thoracic spine and other lumbar levels. Multilevel moderate to severe neural foraminal stenosis throughout the lumbar spine. Mediastinum: There is a large hiatal hernia. Soft tissues: Unremarkable. Mild interloop ascites. IMPRESSION: 1. Advanced degenerative spondylosis as above with severe central spinal canal stenosis, worst at L3-L4 and L4-L5. 2. Multilevel moderate to severe neural foraminal stenoses. 3. Stable thoracolumbar scoliosis. Electronically signed by: Marvin Manjarrez On 07/30/2021 04:23:44 AM
[2021-07-30] MEDS ORDERED: TRAM50TA2 PO (04:54)
[2021-07-30 05:38] LABS: HEMATOCRIT 40.6 % (36.0-47.0); HEMOGLOBIN 13.2 g/dl (12.0-15.5); MEAN CORPUSCULAR HEMOGLOBIN 27.2 pg (27.0-33.0); MEAN CORPUSCULAR HGB CONC 32.5 g/dl (32.0-36.5); MEAN CORPUSCULAR VOLUME 83.7 fl (80.0-96.0); PLATELET COUNT, AUTOMATED 277 10^3/uL (150-450); RED BLOOD COUNT 4.85 10^6/uL (4.00-5.40); WHITE BLOOD COUNT 7.3 10^3/uL (4.0-10.0)
[2021-07-30] MEDS ORDERED: METF10004 PO (06:00)
[2021-07-30] MEDS ORDERED: POTA10TA17 PO (06:00)
[2021-07-30] MEDS ORDERED: LORA-674 PO (06:00)
[2021-07-30] MEDS ORDERED: OMEP1CAP73 PO (06:00)
[2021-07-30] MEDS ORDERED: TRUL10IN SQ (06:00)
[2021-07-30 06:02] LABS: CALCIUM LEVEL 10.9 MG/DL (8.8-10.2); CREATININE FOR GFR 1.11 MG/DL (0.55-1.30); GLOMERULAR FILTRATION RATE 50.7 (>39); POTASSIUM SERUM 3.6 MEQ/L (3.5-5.1)
[2021-07-30] MEDS ORDERED: HOME MED LIST COMPLETE! XX SCH (06:05)
[2021-07-30 06:14] LABS: RSV AMPLIFICATION NEGATIVE (NEGATIVE)
[2021-07-30] MEDS ORDERED: KETOROLAC 30 MG/ML 1ML VIAL IV PRN (07:55)
[2021-07-30] MEDS ORDERED: ACETAMINOPHEN TAB 650MG DOSE (2X325MG) PO PRN (07:55)
[2021-07-30] MEDS ORDERED: PERCOCET 5MG/325MG TAB PO PRN (07:55)
[2021-07-30] MEDS ORDERED: traMADol 50 MG TAB PO PRN (08:35)
--- NOTE | 2021-07-30 11:45 | REPVR ---
PROCEDURE INFORMATION: Exam: MR Lumbar Spine Without Contrast Exam date and time: 07/30/2021 10:55 AM Age: 75 years old Clinical indication: Low back pain and lumbago with sciatica; Bilateral; Additional info: Spinal canal stenosis, cauda equina? TECHNIQUE: Imaging protocol: Multiplanar magnetic resonance images of the lumbar spine without intravenous contrast. COMPARISON: CT Spine, lumbar w/o contrast 07/30/2021 1:13 AM FINDINGS: Limited study secondary to motion artifact. Specially T2 axial images are severely degraded by motion artifact. Vertebral heights are maintained. Loss of disc spaces at multiple levels with disc desiccation. Multilevel retropulsion anteriopulsion as described below. Vertebrae: Levoscoliosis of the lumbar spine. Spinal cord: Normal signal. No cord compression. L1-L2: 4 mm retrolisthesis of L1 on L2 with posterior disc osteophyte formation, and bilateral facet joint arthropathy without any significant central spinal canal stenosis. Severe bilateral neural foraminal narrowing, right greater than left with impingement on the exiting bilateral nerve roots. L2-L3: 10.2 retrolisthesis of L2 on L3 with posterior disc osteophyte formation, bilateral facet joint arthropathy and ligamentum flavum hypertrophy resulting in severe central spinal canal stenosis, severe bilateral recess narrowing, and severe bilateral neural foraminal narrowing, with impingement of exiting bilateral L2 nerve roots and traversing bilateral L3 nerve roots. L3-L4: Diffuse disc bulge with right subarticular disc protrusion, bilateral facet joint arthropathy and ligamentum flavum hypertrophy resulting in severe central spinal canal stenosis, severe right lateral recess narrowing, mild left lateral recess narrowing, severe right and moderate left neural foraminal narrowing with impingement on exiting bilateral, right greater than left L3 nerve roots and abutment of traversing right L4 nerve root. L4-L5: 5.4 mm anterolisthesis of L4 on L5 with uncovering of posterior disc, diffuse disc bulge with central disc protrusion measuring 5.3 x 7.3 mm, bilateral facet joint arthropathy and ligamentum flavum hypertrophy resulting in severe central spinal canal stenosis, severe bilateral recess narrowing, and severe bilateral neural foraminal narrowing with impingement on the exiting bilateral L4 and traversing bilateral L5 nerve roots. L5-S1: 3.8 mm anterolisthesis of L4 on L5 with uncovering of posterior disc, diffuse disc bulge with bilateral facet joint arthropathy and ligamentum flavum hypertrophy without any significant central spinal canal stenosis, mild left lateral recess narrowing, and moderate to severe bilateral neural foraminal narrowing with impingement on the exiting bilateral L5 nerve roots. Soft tissues: Unremarkable. IMPRESSION: Limited study secondary to motion artifact. Specially T2 axial images are severely degraded by motion artifact. Extensive degenerative changes as described in detail above. Please see above dictation for individual levels. Electronically signed by: Starr Clayton On 07/30/2021 11:45:12 AM
[2021-07-30] MEDS ORDERED: BACLOFEN 10 MG TAB PO PRN (13:10)
[2021-07-30] MEDS ORDERED: GLUCAGON INJ 1MG VIAL SC PRN (13:15)
[2021-07-30] MEDS ORDERED: GLUCOSE 4GM CHEW TABLET PO PRN (13:15)
[2021-07-30] MEDS ORDERED: DEXTROSE 50% 50 ML SYRINGE IV PRN (13:15)
--- OUTSIDE RECORDS SUMMARY | 2021-07-30 13:27 | CCD ---
Author Author [facility] Address Unknown Phone Unavailable Support Name Relationship Address Phone RE Next Of Kin Unknown Unavailable RETIRED Next Of Kin Unknown UE Next Of Kin Unknown Unavailable STELLA ESTEVEZ Next Of Kin [address] [place] [address] STELLA ESTEVEZ ECON [address] [place] [address] [phone] Re-disclosure Warning The records that you are [...] is protected by Article 27-F of the [facility] Public Health law. If you continue you may have access to information: Regarding HIV / AIDS; Provided by facilities licensed or operated by the [facility] Office of Mental Health; or Provided by the [facility] Office for People With Developmental Disabilities. If such information is present, then the following [facility] mandated warning applies: This information [...] law may result in a fine or nursing home sentence or both. A general authorization for the release of medical or other information is NOT sufficient authorization for further disc losure. Encounters Encounter Providers Location Date Indications Data Source(s ) Unknown [address] [facility] [address] 05/03/2021 12:00:00 AM EDT [facility]CW[facility] [place] [address] [facility] [place] [address] 04/20/2021 12:00:00 AM EDT eCW1 [facility] [place] [address] [facility] [place] [address] 04/18/2021 12:00:00 AM ED[facility] [address] [facility] [address] 04/15/2021 12:00:00 AM EDT eCW1 [facility] [place] [address] [facility] [place] [address] 04/10/2021 12:00:00 AM EDT [facility] [place] [address] [facility] [place] [address] 04/05/2021 12:00:00 AM EDT eCW1 [facility] [address] [facility] [place] [address] 03/29/2021 12:00:00 AM EDT eCW1 [facility] [place] [address] [facility] [place] [address] 03/29/2021 12:00:00 AM EDT eCW1 [facility] [address] [facility] [address] 02/15/2021 12:00:00 AM EDT eCW1 [facility] Unknown [address] [facility] [address] 02/11/2021 12:00:00 AM EDT [facility] [address] [facility] [place] [address] 01/20/2021 12:00:00 AM EDT eCW1 [facility] Unknown [address] [facility] [address] 01/14/2021 12:00:00 AM EDT eCW1 ([facility] Unknown [address] [facility] [address] 01/12/2021 12:00:00 AM EDT eCW1 [facility] Unknown [address] [facility] [address] 12/08/2020 12:00:00 AM EST eCW1 ([facility]) Unknown [address] [facility] [address] 11/26/2020 12:00:00 AM EST eCW1 ([facility]) Unknown [address] [facility] [address] 11/14/2020 12:00:00 AM EST eCW1 ([facility] Outpatient [address] [facility] [address] 11/13/2020 12:00:00 AM EST eCW1 ([facility]) Unknown [address] [facility] [address] 10/29/2020 12:00:00 AM EST eCW1 ([facility]) Unknown [address] [facility] [address] 10/07/2020 12:00:00 AM EST eCW1 ([facility]) Unknown [address] [facility] [address] 10/05/2020 12:00:00 AM EST eCW1 ([facility]) Unknown [address] [facility] [address] 10/01/2020 12:00:00 AM EST eCW1 ([facility]) Unknown [address] [facility] [address] 09/28/2020 12:00:00 AM EST eCW1 ([facility]) Unknown [address] [facility] [address] 09/28/2020 12:00:00 AM EST eCW1 ([facility]) Unknown [address] [facility] [address] 09/14/2020 12:00:00 AM EST eCW1 ([facility]) Unknown [address] [facility] [address] 09/11/2020 12:00:00 AM EST eCW1 ([facility]) Unknown [address] [facility] [address] 09/09/2020 12:00:00 AM EST eCW1 ([facility]) Unknown [address] [facility] [address] 09/07/2020 12:00:00 AM EST eCW1 ([facility]) Unknown [address] [facility] [place] [address] 09/04/2020 12:00:00 AM EST eCW1 ([facility]) Unknown [address] [facility] [address] 08/07/2020 12:00:00 AM EDT eCW1 ([facility]) Unknown [address] [facility] [address] 06/30/2020 12:00:00 AM EDT eCW1 ([facility]) Immunizations Vaccine Date Status Description Data Source(s) J&J/Mell COVID- 19 (given elsewhere) SARS-COV-2 vaccine, vector non- replicating, recombinant spike protein-Ad26, preservative free, 0.5 mL 02/11/2021 02:37:00 PM EDT completed eCW1 ([facility]) J&J/Mell COVID- 19 (given elsewhere) SARS-COV-2 vaccine, vector non- replicating, recombinant spike protein-Ad26, preservative free, 0.5 mL 02/11/2021 02:37:00 PM EDT completed eCW1 ([facility]) J&J/Mell COVID- 19 (given elsewhere) SARS-COV-2 vaccine, vector non- replicating, recombinant spike protein-Ad26, preservative free, 0.5 mL 02/11/2021 02:37:00 PM EDT completed eCW1 ([facility]) &J/Mell COVID- 19 (given elsewhere) SARS-COV-2 vaccine, vector non- replicating, recombinant spike protein-Ad26, preservative free, 0.5 mL 02/11/2021 02:37:00 PM EDT completed eCW1 ([facility]) J&J/Mell COVID- 19 (given elsewhere) SARS-COV-2 vaccine, vector non- replicating, recombinant spike protein-Ad26, preservative free, 0.5 mL 02/11/2021 02:37:00 PM EDT completed eCW1 ([facility]) &/Mell COVID- 19 (given elsewhere) SARS-COV-2 vaccine, vector non- replicating, recombinant spike protein-Ad26, preservative free, 0.5 mL 02/11/2021 02:37:00 PM EDT completed eCW1 ([facility]) J&J/Mell COVID- 19 (given elsewhere) SARS-COV-2 vaccine, vector non- replicating, recombinant spike protein-Ad26, preservative free, 0.5 mL 02/11/2021 02:37:00 PM EDT completed eCW1 ([facility]) J&J/Mell COVID- 19 (given elsewhere) SARS-COV-2 vaccine, vector non- replicating, recombinant spike protein-Ad26, preservative free, 0.5 mL 02/11/2021 02:37:00 PM EDT completed eCW1 ([facility]) COVID-19 VACCINE Mell 02/11/2021 12:00:00 AM EDT completed FPSISIIS Vaccine Series Complete: YESThis Data wa s Submitted to [facility] [employer]. Medications Medication Brand Name Start Date Product Form Dose Route Admi nistrative Instructions Pharmacy Instructions Status Indications Reaction Description Data Source(s) Potassium Chloride 20 MEQ Extended Relea se Oral Tablet Potassium Chloride ER 20 MEQ Potassium Chloride ER 20 MEQ 04/21/2021 12:00:00 AM EDT 1.0 {tablet_with_food} active Potassium Chl oride ER 20 MEQ eCW1 ([facility]) Potassium Chloride 20 MEQ Extended Relea se Oral Tablet Potassium Chloride ER 20 MEQ Potassium Chloride ER 20 MEQ 04/21/2021 12:00:00 AM EDT 1.0 {tablet_with_food} active Potassium Chl oride ER 20 MEQ eCW1 ([facility]) Potassium Chloride 20 MEQ Extended Relea se Oral Tablet Potassium Chloride ER 20 MEQ Potassium Chloride ER 20 MEQ 04/19/2021 12:00:00 AM EDT 1.0 {tablet_with_food} active Potassium Chl oride ER 20 MEQ eCW1 ([facility]) Potassium Chloride 20 MEQ Extended Relea se Oral Tablet Potassium Chloride ER 20 MEQ Potassium Chloride ER 20 MEQ 04/19/2021 12:00:00 AM EDT 1.0 {tablet_with_food} active Potassium Chl oride ER 20 MEQ eCW1 ([facility]) Potassium Chloride 20 MEQ Extended Relea se Oral Tablet Potassium Chloride ER 20 MEQ Potassium Chloride ER 20 MEQ 04/19/2021 12:00:00 AM EDT 1.0 {tablet_with_food} active Potassium Chl oride ER 20 MEQ eCW1 ([facility]) Potassium Chloride 20 MEQ Extended Relea se Oral Tablet Potassium Chloride ER 20 MEQ Potassium Chloride ER 20 MEQ 04/19/2021 12:00:00 AM EDT 1.0 {tablet_with_food} active Potassium Chl oride ER 20 MEQ eCW1 ([facility]) Ibuprofen 600 MG Oral Tablet Ibuprofen 600 MG 01/18/2021 12:00:00 AM E DT active Ibuprofen 600 MG eCW1 ([facility]) Ibuprofen 600 MG Oral Tablet Ibuprofen 600 MG 01/18/2021 12:00:00 AM E DT active Ibuprofen 600 MG eCW1 ([facility]) Ibuprofen 600 MG Oral Tablet Ibuprofen 600 MG 01/18/2021 12:00:00 AM E DT active Ibuprofen 600 MG eCW1 ([facility]) Ibuprofen 600 MG Oral Tablet Ibuprofen 600 MG 01/18/2021 12:00:00 AM E DT active Ibuprofen 600 MG eCW1 ([facility]) Ibuprofen 600 MG Oral Tablet Ibuprofen 600 MG 01/18/2021 12:00:00 AM E DT active Ibuprofen 600 MG eCW1 ([facility]) Ibuprofen 600 MG Oral Tablet Ibuprofen 600 MG 01/18/2021 12:00:00 AM E DT active Ibuprofen 600 MG eCW1 ([facility]) Ibuprofen 600 MG Oral Tablet Ibuprofen 600 MG 01/18/2021 12:00:00 AM E DT active Ibuprofen 600 MG eCW1 ([facility]) Ibuprofen 600 MG Oral Tablet Ibuprofen 600 MG 01/18/2021 12:00:00 AM E DT active Ibuprofen 600 MG eCW1 ([facility]) Ibuprofen 600 MG Oral Tablet Ibuprofen 600 MG 01/18/2021 12:00:00 AM E DT active Ibuprofen 600 MG eCW1 ([facility]) Ibuprofen 600 MG Oral Tablet Ibuprofen 600 MG 01/18/2021 12:00:00 AM E DT active Ibuprofen 600 MG eCW1 ([facility]) Ibuprofen 600 MG Oral Tablet Ibuprofen 600 MG 01/18/2021 12:00:00 AM E DT active Ibuprofen 600 MG eCW1 ([facility]) Insurance Providers Payer name Policy type / Coverage type Policy ID Covered libertarian ID Covered libertarian's relationship to moeller Policy Moeller Plan Information MEDICARE BLUE PPO 306 [id number] SP [id number] MEDICARE BLUE PPO 306 [id number] SP [id number] [facility] [id number] S [id number] ANSI-Medicare Part B [id number] ANSI-Medicare Part B [id number] ANSI-Medicare Part B [id number] MEDICARE BLUE PPO 306 [id number] SP [id number] [employer] P [id number] S [id number] MEDICARE BLUE PPO P [id number] S [id number] MEDICARE BLUE PPO P [id number] S [id number] CLM#[id number] CLM #[id number] Problems, Conditions, and Diagnoses No Information Surgeries/Procedures No Information Results ID Date Data Source Basic Metabolic Profile (BMP) 03/31/2021 12:00:00 AM EDT eCW 1 ([facility]) Name Value Range Interpretation Code Description Data Joanne rce(s) Supporting Document(s) 0.53 0.55-1.30 CREATININE FOR GFR eCW1 ([facility]) 101 70-100 GLUCOSE, FASTING eCW1 ([facility]) 11 7-18 BLOOD UREA NITROGEN eCW1 ([facility]) > 60.0 >39 GLOMERULAR FILTRATION RATE eCW 1 ([facility]) 133 136-145 SODIUM LEVEL eCW1 ([facility]) 3.7 3.5-5.1 POTASSIUM SERUM eCW1 ([facility]) 96 98-107 CHLORIDE LEVEL eCW1 ([facility]) 10.0 8.8-10.2 CALCIUM LEVEL eCW1 ([facility]) 32 21-32 CARBON DIOXIDE LEVEL eCW1 ([facility]) ID Date Data Source LIPID PANEL (CARDIAC RISK) 03/31/2021 12:00:00 AM EDT eCW1 ( [facility]) Name Value Range Interpretation Code Description Data Joanne rce(s) Supporting Document(s) Triglyceride [Mass/volume] in Serum or Plasma by calculation 59 <150 TRIGLYCERIDES LEVEL eCW1 ([facility]) Cholesterol in LDL [Mass/volume] in Serum or Plasma by calculation 60 <100 LDL CHOLESTEROL eCW1 ([facility]) 72 NON-HDL-C eCW1 ([facility]) Cholesterol [Moles/volume] in Serum or Plasma 161 <200 CHOLESTEROL LEVEL eCW1 ([facility]) Cholesterol in HDL [Moles/volume] in Serum or Plasma 89 >40 HDL CHOLESTEROL eCW1 ([facility]) 1.808 <5 CHOLESTEROL RISK RATIO eCW1 ([facility]) ID Date Data Source [id number] 02/15/2021 12:00:00 AM EDT eCW1 ([facility]) Name Value Range Interpretation Code Description Data Joanne rce(s) Supporting Document(s) Albumin/Creatinine [Mass Ratio] in Urine 5.4 MALB URINE SIEMENS eCW1 ([facility]) Microalbumin/Creatinine [Mass Ratio] in Urine 44.4 CREATININE, URINE eCW1 ([facility]) Microalbumin/Creatinine [Ratio] in Urine 12.1 0.0-30.0 CANDICE/CREAT RATIO eCW1 ([facility]) ID Date Data Source [id number] 02/15/2021 12:00:00 AM EDT eCW1 ([facility]) Name Value Range Interpretation Code Description Data Joanne rce(s) Supporting Document(s) Hemoglobin A1c/Hemoglobin.total in Blood 6.1 HEMOGLOBIN A1c eCW1 ([facility]) Procedure Social History Code Duration Value Status Description Data Source(s ) Smoking 03/29/2021 12:00:00 AM EDT Never Smoker completed Never S moker eCW1 ([facility]) Smoking 03/29/2021 12:00:00 AM EDT Never Smoker completed Never S moker eCW1 ([facility]) Smoking 03/29/2021 12:00:00 AM EDT Never Smoker completed Never S moker eCW1 ([facility]) Smoking 03/29/2021 12:00:00 AM EDT Never Smoker completed Never S moker eCW1 ([facility]) Smoking 03/29/2021 12:00:00 AM EDT Never Smoker completed Never S moker eCW1 ([facility]) Smoking 03/29/2021 12:00:00 AM EDT Never Smoker completed Never S moker eCW1 ([facility]) Smoking 03/29/2021 12:00:00 AM EDT Never Smoker completed Never S moker eCW1 ([facility]) Smoking 03/29/2021 12:00:00 AM EDT Never Smoker completed Never S moker eCW1 ([facility]) Smoking 02/15/2021 12:00:00 AM EDT Never Smoker completed Never S moker eCW1 ([facility]) Smoking 02/12/2021 12:00:00 AM EDT Never Smoker completed Never S moker eCW1 ([facility]) Smoking 12/28/2020 12:00:00 AM EDT Never Smoker completed Never S moker eCW1 ([facility]) Smoking 12/28/2020 12:00:00 AM EDT Never Smoker completed Never S moker eCW1 ([facility]) Smoking 12/28/2020 12:00:00 AM EDT Never Smoker completed Never S moker eCW1 ([facility]) Smoking 12/28/2020 12:00:00 AM EDT Never Smoker completed Never S moker eCW1 ([facility]) Smoking 11/13/2020 12:00:00 AM EST Never Smoker completed Never S moker eCW1 ([facility]) Smoking 11/13/2020 12:00:00 AM EST Never Smoker completed Never S moker eCW1 ([facility]) Smoking 11/13/2020 12:00:00 AM EST Never Smoker completed Never S moker eCW1 ([facility]) Vital Signs ID Date Data Source UNK Name Value Range Interpretation Code Description Data Source(s) Systolic blood pressure 136 mm[Hg] 136 mm[Hg] e CW1 ([facility]) Body weight 133.0 [lb_av] 133.0 [lb_av] eCW1 ([facility]) Body height 62 [in_i] 62 [in_i] eCW1 ([facility]) Body mass index (BMI) [Ratio] 24.32 kg/m2 24.32 kg/m2 W1 ([facility]) Heart rate 94 /min 94 /min eCW1 ([facility]) Respiratory rate 18 /min 18 /min eCW1 ([facility]) Body temperature 97.9 [degF] 97.9 [degF] eCW1 ( [facility]) Diastolic blood pressure 80 mm[Hg] 80 mm[Hg] eCW1 ([facility]) Body height 62 [in_i] 62 [in_i] eCW1 ([facility]) Body mass index (BMI) [Ratio] 25.02 kg/m2 25.02 kg/m2 eCW1 ([facility]) Heart rate 88 /min 88 /min eCW1 ([facility]) Respiratory rate 18 /min 18 /min eCW1 ([facility]) Body temperature 99 [degF] 99 [degF] eCW1 ([facility]) Systolic blood pressure 132 mm[Hg] 132 mm[Hg] e CW1 ([facility]) Diastolic blood pressure 82 mm[Hg] 82 mm[Hg] eCW1 ([facility]) Body weight 136.8 [lb_av] 136.8 [lb_av] eCW1 ([facility]) Body weight 138 [lb_av] 138 [lb_av] eCW1 ([facility]) Body height 62 [in_i] 62 [in_i] eCW1 ([facility]) Body mass index (BMI) [Ratio] 25.24 kg/m2 25.24 kg/m2 eCW1 ([facility]) Heart rate 98 /min 98 /min eCW1 ([facility]) Respiratory rate 18 /min 18 /min eCW1 ([facility]) Body temperature 98.3 [degF] 98.3 [degF] eCW1 ( [facility]) Systolic blood pressure 136 mm[Hg] 136 mm[Hg] e CW1 ([facility]) Diastolic blood pressure 80 mm[Hg] 80 mm[Hg] eCW1 ([facility]) Patient Treatment Plan of Care Planned Activity Planned Date Details Description Data Source (s) Potassium Chloride 20 MEQ Extended Release Oral Tablet 04/21/2021 12:00:00 AM EDT eCW1 ([facility]) Potassium Chloride 20 MEQ Extended Release Oral Tablet 04/21/2021 12:00:00 AM EDT eCW1 ([facility]) Potassium Chloride 20 MEQ Extended Release Oral Tablet 04/19/2021 12:00:00 AM EDT eCW1 ([facility]) Potassium Chloride 20 MEQ Extended Release Oral Tablet 04/19/2021 12:00:00 AM EDT eCW1 ([facility]) Potassium Chloride 20 MEQ Extended Release Oral Tablet 04/19/2021 12:00:00 AM EDT eCW1 ([facility]) Potassium Chloride 20 MEQ Extended Release Oral Tablet 04/19/2021 12:00:00 AM EDT eCW1 ([facility]) Ibuprofen 600 MG Oral Tablet 01/18/2021 12:00:00 AM EDT eCW1 ([facility]) Ibuprofen 600 MG Oral Tablet 01/18/2021 12:00:00 AM EDT eCW1 ([facility]) Ibuprofen 600 MG Oral Tablet 01/18/2021 12:00:00 AM EDT eCW1 ([facility])
--- NOTE | 2021-07-30 14:21 | REP ---
INDICATION: looking for uinary retention. COMPARISON: None. TECHNIQUE: Real-time transvesical sonographic evaluation of the urinary bladder with Doppler FINDINGS: Doppler shows uro jet phenomena at the UV junction bilaterally. The pre void urinary bladder volume calculation is 51.9 cc. The patient was unable to void. No large urinary bladder masses were identified. IMPRESSION: As above. Port <Electronically signed by Rajesh Butler > 07/30/21 [id number]
--- NOTE | 2021-07-30 16:09 | HPEPDOC ---
General Date of Admission Jul 30, 2021 at 13:04 Date of Service: Jul 30, 2021 Chief Complaint The patient is a 75-year-old female admitted with a reason for visit of Chronic Radicular Lumbar Pain, Intractable Low [place]. History of Present Illness Mrs. Mcgrath is a 75-year-old female with static and diabetes mellitus type 2 who presents with intractable back pain. Patient was given tramadol in the ED and she is been very lethargic since then. When I saw her in the morning, she cannot answer any questions. She was moaning. When I attempted straight leg raise, she immediately responded with pain. I called patient's daughter for more information. She does note she currently has IT band tightness in her hip frequently bothers her. Monday night, she woke up with pain which progressively worsened. She had to pick her mother up to sit in the wheelchair. Denies any recent falls or trauma. She tells me at baseline, the patient cognition is pretty good. While in the ED, CT of the lumbosacral spine was obtained which demonstrated severe central spinal canal stenosis. MRI was obta ined and did not demonstrate cauda equina. Ultrasound of the bladder did not demonstrate any urinary retention. Patient will be admitted for intractable pain. Home Medications Scheduled Ascorbate Calcium/Bioflavonoid (Montse-C 1,000 mg Tablet) 1 Each Tablet, 1 EACH PO QPM, (Reported) DINNERTIME Aspirin (Aspirin EC) 81 Mg Tablet.dr, 81 MG PO DAILY, (Reported) Atorvastatin Calcium (Atorvastatin Calcium) 80 Mg Tablet, 80 MG PO QHS, (Reported) B2/Vits A,C,E/Lut/Zeaxanth/Min (Icaps Tablet) 1 Each Tablet.er, 1 TAB PO QPM, (Reported) DINNERTIME Elan/D3/Mag11/Zinc/[employer]/Royce/Bor (Caltrate 600+D Plus Tablet) 1 Each Tablet, 1 TAB PO QPM, (Reported) DINNERTIME Chlorthalidone (Chlorthalidone) 25 Mg Tablet, 25 MG PO DAILY, (Reported) Cyanocobalamin (Vitamin B-12) (Vitamin B-12) 1,000 Mcg Tablet, 1,000 MCG PO QPM, (Reported) DINNERTIME Dulaglutide (Trulicity) 0.75 Mg/0.5 Ml Pen.injctr, 0.75 MG SQ QWEEK, (Reported) THURSDAYS Levothyroxine Sodium (Synthroid) 75 Mcg Tablet, 75 MCG PO DAILY, (Reported) Loratadine (Loratadine) 10 Mg Tablet, 10 MG PO DAILY, (Reported) Meclizine HCl (Meclizine HCl) 25 Mg Tablet, 25 MG PO TID, (Reported) MORNING, SUPPER, NIGHT Metformin HCl (Metformin HCl) 1,000 Mg Tablet, 1,000 MG PO BID, (Reported) Multivitamins (Thera M Plus Tablet) 1 Each Tablet, 1 TAB PO QPM, (Reported) DINNERTIME [place]-3 Fatty Acids/Fish Oil ([place] 3 1,000 mg Softgel) 1 Each Capsule, 1 CAP PO QPM, (Reported) DINNERTIME Omeprazole (Omeprazole) 20 Mg Capsule.dr, 20 MG PO DAILY, (Reported) Phenazopyridine HCl (Azo Urinary Pain Relief) 95 Mg Tablet, 95 MG PO QPM, (Reported) DINNERTIME Potassium Chloride (Potassium Chloride) 10 Meq Tab.er.prt, 10 MEQ PO DAILY, (Reported) Scheduled PRN Baclofen (Baclofen) 10 Mg Tablet, 10 MG PO TID PRN for MUSCLE SPASMS, (Reported) Ibuprofen (Ibuprofen) 600 Mg Tablet, 600 MG PO TID PRN for PAIN LEVEL 1-5, (Reported) Allergies Coded Allergies: Penicillins (Verified Allergy, Mild, rash, 09/09/19) Sulfa (Sulfonamide Antibiotics) (Verified Allergy, Mild, rash, 09/09/19) codeine (Verified Allergy, Mild, rash, 09/09/19) erythromycin base (Verified Allergy, Mild, rash, 09/09/19) morphine (Verified Allergy, Mild, rash, 09/09/19) Past Medical History Medical History 1. GERD 2. Hypertension 3. Sciatica 4. Type 2 diabetes mellitus 5. Received the J&J Covid vaccine on 02/11/2021 Surgical History Per chart review, denies surgery Family History Father: at the age of 7676 years old, history of flu Mother: at the age of 8585 years old, history of stroke Social History * Smoker: Denies A-FIB/CHADSVASC A-FIB History Current/History of A-Fib/PAF?: No Review of Systems Other systems Unable to obtain as patient is lethargic Physical Examination General Exam: Negative: Alert, Cooperative Eye Exam: Negative: Sclera icteric Chest Exam: Positive: Clear to auscultation; Negative: Wheezing Heart Exam: Positive: Tachycardic, Regular Rhythm Abdomen Exam: Positive: Normal bowel sounds, Soft Extremity Exam: Positive: Edema Neuro Exam: Positive: Other (Patient had immediate pain bilateral with straight leg raise ) Psych Exam: Positive: Other (Unable to obtain as she was lethargic); Negative: Mental status NL Vital Signs Vital Signs Date Time Temp Pulse Resp B/P (MAP) Pulse Ox O2 Delivery O2 Flow Rate FiO2 07/30/21 13:30 120 20 162/89 (113) 96 Room Air 07/30/21 12:30 97.3 Laboratory Data Labs 24H Laboratory Tests 2 07/30/21 05:29: Nucleated Red Blood Cells % (auto) 0.0, Anion Gap 15, Glomerular Filtration Rate 50.7, Calcium Level 10.9H, Coronavirus (COVID-19)(PCR) NEGATIVE, Influenza Type A (RT-PCR) NEGATIVE, Influenza Type B (RT-PCR) NEGATIVE, Respiratory Syncytial Virus (PCR) NEGATIVE CBC/BMP Laboratory Tests 07/30/21 05:29 Assessment/Plan Mrs. Mcgrath is a 75-year-old female with static and diabetes mellitus type 2 who presents with intractable back pain. We will work on pain control with acetaminophen, tramadol, and ketorolac. We will also order PT and OT to work with patient for her spinal canal stenosis. Plan / VTE VTE Prophylaxis Ordered?: Yes Plan Plan 1. Intractable pain Secondary to spinal canal stenosis We will work on pain control with acetaminophen, tramadol, and ketorolac Continue baclofen PT and OT ordered 2. Weakness Secondary to spinal canal stenosis Pain control and PT/OT 3. Hypertension Continue chlorthalidone 4. Diabetes mellitus Carbohydrate consistent diet Sliding scale insulin 5. Hypothyroidism Continue levothyroxine 6. Seasonal allergies Continue loratadine 7. GERD Continue omeprazole 8. DVT prophylaxis Lovenox Disposition: Pending clinical improvement and pain control JYOTI JOSEPH DO Jul 30, 2021 16:09
[2021-07-30] MEDS: NS 1,000 ML IV SCH (17:07)
[2021-07-30] MEDS: CHLORTHALIDONE 25 MG TAB PO SCH (17:21)
[2021-07-30] MEDS ORDERED: SODIUM CHLORIDE 0.9% 1000ML IV STA (17:33)
--- NOTE | 2021-07-30 17:50 | REPVR ---
PROCEDURE INFORMATION: Exam: CT Head Without Contrast Exam date and time: 07/30/2021 5:06 PM Age: 75 years old Clinical indication: Altered mental status/memory loss; Additional info: AMS, lethargy TECHNIQUE: Imaging protocol: Computed tomography of the head without contrast. Radiation optimization: All CT scans at this facility use at least one of these dose optimization techniques: automated exposure control; mA and/or kV adjustment per patient size (includes targeted exams where dose is matched to clinical indication); or iterative reconstruction. COMPARISON: No relevant prior studies available. FINDINGS: Brain: Normal. No hemorrhage. There are mild periventricular and subcortical lucencies consistent with chronic microvascular ischemic changes.The sosa-white differentiation is maintained. No hemorrhage. No edema. Cerebral ventricles: No ventriculomegaly. Paranasal sinuses: Visualized sinuses are unremarkable. No fluid levels. Mastoid air cells: Visualized mastoid air cells are well aerated. Bones/joints: Unremarkable. No acute fracture. Soft tissues: Unremarkable. IMPRESSION: No acute intracranial abnormality. Chronic microvascular ischemic changes. Electronically signed by: Jaguar Campbell On 07/30/2021 17:50:04 PM
--- NOTE | 2021-07-30 17:54 | REP ---
INDICATION: Fever. COMPARISON: 05/04/2012. TECHNIQUE: Single portable AP view of the chest was performed. FINDINGS: There is no acute infiltrate or pulmonary edema. Lungs are clear. The heart is not significantly enlarged. The mediastinal silhouette is unremarkable. The visualized osseous structures are intact. IMPRESSION: No acute pulmonary disease. <Electronically signed by Rashi Palomino > 07/30/21 2232
[2021-07-30] MEDS: dexameTHASONE 20MG/5ML VIAL (J1100 PER 1MG) IV SCH (18:00)
[2021-07-30] MEDS ORDERED: VANCOMYCIN HCL 1,000 MG, VIAL MATE ADAPTER 1 EACH in NS 250 ML IV ONE (18:00)
[2021-07-30 18:02] LABS: ABG PARTIAL PRESSURE CO2 20.8 mmHg (35.0-45.0)
[2021-07-30 18:03] LABS: ABG HCO3 18.2 MEQ/L (22.0-26.0); ABG O2 SATURATION 95.3 % (95.0-99.0); ABG PARTIAL PRESSURE O2 71.2 mmHg (75.0-100.0); ABG STANDARD HCO3 22.8 MEQ/L (22.0-26.0); ABG TOTAL CO2 18.8 MEQ/L (23.0-31.0)
[2021-07-30 18:06] LABS: ALBUMIN 2.8 GM/DL (3.2-5.2); BILIRUBIN,DIRECT 0.4 MG/DL (0.0-0.2); BILIRUBIN,TOTAL 1.2 MG/DL (0.2-1.0); TOTAL PROTEIN 6.7 GM/DL (6.4-8.2)
[2021-07-30] MEDS: LORATADINE 10 MG TAB PO SCH (18:09)
[2021-07-30] MEDS: LEVOTHYROXINE 75MCG TABLET (0.075MG) PO SCH (18:09)
[2021-07-30] MEDS: ASPIRIN 81MG ENTERIC TABLET PO SCH (18:09)
[2021-07-30] MEDS: OMEPRAZOLE 20 MG CAP PO SCH (18:10)
[2021-07-30] MEDS: MECLIZINE 25 MG TABLET PO SCH (18:10)
[2021-07-30 19:11] LABS: APPEARANCE, CSF CLEAR (CLEAR); COLOR, CSF COLORLESS (COLORLESS); CSF TUBE# CELL CNT TUBE 1
[2021-07-30 19:12] LABS: BASO # 0.1 10^3/uL (0.0-0.2); BASO % 0.7 % (0.0-1.0); HEMATOCRIT 35.6 % (36.0-47.0); HEMOGLOBIN 11.9 g/dl (12.0-15.5); LYMPH # 0.5 10^3/uL (1.5-5.0); LYMPH % 6.5 % (24.0-44.0); MEAN CORPUSCULAR HGB CONC 33.4 g/dl (32.0-36.5); MEAN CORPUSCULAR VOLUME 80.9 fl (80.0-96.0); MONO # 0.1 10^3/uL (0.0-0.8); MONO % 0.8 % (2.0-8.0); NEUTROPHILS # 6.8 10^3/uL (1.5-8.5); NEUTROPHILS % 90.3 % (36.0-66.0); PLATELET COUNT, AUTOMATED 222 10^3/uL (150-450); WHITE BLOOD COUNT 7.5 10^3/uL (4.0-10.0)
[2021-07-30 19:13] LABS: CSF TUBE# CELL CNT TUBE 4
[2021-07-30 19:14] LABS: APPEARANCE, CSF CLEAR (CLEAR); COLOR, CSF COLORLESS (COLORLESS)
[2021-07-30 19:18] LABS: CSF TUBE# GLU TUBE 3; CSF TUBE# TP TUBE 3; GLUCOSE CSF 85 MG/DL (40-75); TOTAL PROTEIN,CSF 76 MG/DL (15-45)
[2021-07-30 19:32] LABS: BLOOD UREA NITROGEN 21 MG/DL (7-18); CALCIUM LEVEL 9.3 MG/DL (8.8-10.2); CARBON DIOXIDE LEVEL 23 MEQ/L (21-32); CHLORIDE LEVEL 104 MEQ/L (98-107); CREATININE FOR GFR 0.61 MG/DL (0.55-1.30); GLOMERULAR FILTRATION RATE > 60.0 (>39); GLUCOSE, FASTING 146 MG/DL (70-100); POTASSIUM SERUM 2.9 MEQ/L (3.5-5.1); SODIUM LEVEL 139 MEQ/L (136-145)
[2021-07-30] MEDS ORDERED: MEROPENEM INJ 1 GM in IV 1 EA IV SCH (20:00)
[2021-07-30] MEDS ORDERED: ATORVASTATIN 20 MG TAB PO SCH (21:00)
[2021-07-30] MEDS ORDERED: HumaLOG INSULIN (NovoLOG) PER UNIT SC SCH (21:00)
[2021-07-30] MEDS ORDERED: MULTIVITAMINS/MINERALS THERAP 1 TAB PO SCH (21:00)
[2021-07-30] MEDS ORDERED: OMEGA-3 1000MG CAPSULE PO SCH (21:00)
[2021-07-31] MEDS ORDERED: MEROPENEM INJ 1 GM in IV 1 EA IV SCH ×4 (01:00→13:00)
[2021-07-31] MEDS: dexameTHASONE 20MG/5ML VIAL (J1100 PER 1MG) IV SCH ×3 (02:45→20:00)
[2021-07-31] MEDS: HumaLOG INSULIN (NovoLOG) PER UNIT SC SCH ×2 (03:42→07:30)
[2021-07-31] MEDS: MECLIZINE 25 MG TABLET PO SCH ×2 (03:43→08:54)
[2021-07-31] MEDS ORDERED: ACETAMINOPHEN 650 MG SUPP PR ONE ×2 (03:55→05:40)
[2021-07-31] MEDS: NS 1,000 ML IV SCH (04:02)
[2021-07-31] MEDS: KCL 10MEQ/100ML SWI (KRUN) 10 MEQ in IV 1 EA IV SCH ×7 (04:45→07:47)
[2021-07-31] MEDS ORDERED: IPRATROPIUM 0.5MG/ALBUTEROL 2.5MG INH SOL UD 3ML (DUONEB) As Ordered ONE (05:14)
[2021-07-31] MEDS ORDERED: HYDROMORPHONE HCL 0.5 MG/ 0.5 ML SYRINGE (J1170 PER 1) IV ONE ×3 (05:35→20:55)
[2021-07-31] MEDS: LEVOTHYROXINE 75MCG TABLET (0.075MG) PO SCH (06:00)
[2021-07-31 06:03] LABS: ABG BASE EXCESS -19.5 (-2.0-2.0); ABG HCO3 10.3 MEQ/L (22.0-26.0); ABG O2 SATURATION 19.7 % (95.0-99.0); ABG PARTIAL PRESSURE CO2 38.3 mmHg (35.0-45.0); ABG STANDARD HCO3 9.1 MEQ/L (22.0-26.0); ABG TOTAL CO2 11.4 MEQ/L (23.0-31.0)
[2021-07-31 06:06] LABS: ABG PARTIAL PRESSURE O2 23.3 mmHg (75.0-100.0); ABG pH (ARTERIAL) 7.046 UNITS (7.350-7.450)
[2021-07-31] MEDS ORDERED: IPRATROPIUM 0.5MG/ALBUTEROL 2.5MG INH SOL UD 3ML (DUONEB) NEB ONE (06:15)
[2021-07-31 06:31] LABS: ABG BASE EXCESS -18.1 (-2.0-2.0); ABG HCO3 8.1 MEQ/L (22.0-26.0); ABG O2 SATURATION 93.4 % (95.0-99.0); ABG PARTIAL PRESSURE CO2 21.3 mmHg (35.0-45.0); ABG PARTIAL PRESSURE O2 88.7 mmHg (75.0-100.0); ABG STANDARD HCO3 11.1 MEQ/L (22.0-26.0); ABG TOTAL CO2 8.7 MEQ/L (23.0-31.0)
[2021-07-31 06:34] LABS: ABG pH (ARTERIAL) 7.196 UNITS (7.350-7.450)
[2021-07-31 08:03] LABS: HEMATOCRIT 36.7 % (36.0-47.0); HEMOGLOBIN 11.7 g/dl (12.0-15.5); MEAN CORPUSCULAR HEMOGLOBIN 27.3 pg (27.0-33.0); MEAN CORPUSCULAR HGB CONC 31.9 g/dl (32.0-36.5); MEAN CORPUSCULAR VOLUME 85.5 fl (80.0-96.0); PLATELET COUNT, AUTOMATED 191 10^3/uL (150-450); RED BLOOD COUNT 4.29 10^6/uL (4.00-5.40); WHITE BLOOD COUNT 8.9 10^3/uL (4.0-10.0)
[2021-07-31] MEDS ORDERED: ISOVUE-370 76% 100ML VIAL As Ordered ONE (08:13)
[2021-07-31 08:30] LABS: CALCIUM LEVEL 8.7 MG/DL (8.8-10.2); CREATININE FOR GFR 0.96 MG/DL (0.55-1.30); POTASSIUM SERUM 3.6 MEQ/L (3.5-5.1)
[2021-07-31] MEDS: VANCOMYCIN HCL 750 MG, VIAL MATE ADAPTER 1 EACH in NS 250 ML IV SCH ×2 (08:53→23:10)
[2021-07-31] MEDS: ASPIRIN 81MG ENTERIC TABLET PO SCH (08:54)
[2021-07-31] MEDS: LORATADINE 10 MG TAB PO SCH (08:54)
[2021-07-31] MEDS ORDERED: NS 1,000 ML IV ONE (08:55)
[2021-07-31] MEDS: OMEPRAZOLE 20 MG CAP PO SCH (08:55)
[2021-07-31] MEDS: LIDOCAINE 5% (LIDODERM) PATCH TD SCH (08:55)
[2021-07-31] MEDS: CHLORTHALIDONE 25 MG TAB PO SCH (08:55)
[2021-07-31] MEDS ORDERED: ENOXAPARIN 40MG/0.4ML SYRINGE (J1650 PER 10MG) SC SCH (09:00)
[2021-07-31] MEDS ORDERED: THIAMINE 200MG 2ML VIAL IV SCH (09:00)
[2021-07-31] MEDS ORDERED: PANTOPRAZOLE 40MG VIAL (C9113 PER 1) IV SCH (09:00)
[2021-07-31 09:36] LABS: ACETONE/KETONE 21.78 MG/DL (<2.81)
--- NOTE | 2021-07-31 09:42 | REPVR ---
PROCEDURE INFORMATION: Exam: CTA Abdomen and Pelvis With Contrast Exam date and time: 07/31/2021 8:40 AM Age: 75 years old Clinical indication: Abdominal pain; Generalized; Additional info: Lactic acidosis, ischemic bowel? TECHNIQUE: Imaging protocol: Computed tomographic angiography of the abdomen and pelvis with contrast material. 3D rendering (Not supervised by radiologist): MIP and/or 3D reconstructed images were created by the technologist. Radiation optimization: All CT scans at this facility use at least one of these dose optimization techniques: automated exposure control; mA and/or kV adjustment per patient size (includes targeted exams where dose is matched to clinical indication); or iterative reconstruction. Contrast material: ISOVUE 370; Contrast volume: 100 ml; Contrast route: INTRAVENOUS (IV); COMPARISON: BLADDER (LIMITED PELVIC) US 07/30/2021 1:58 PM FINDINGS: Tubes, catheters and devices: Oquendo catheter in a collapsed urinary bladder. Lungs: The visualized lungs demonstrate mildly heterogeneous aeration with dependent atelectasis or infiltrates right greater than left. Pleural spaces: Small amounts of pleural fluid right greater than left. No pneumothorax. Heart: The heart is enlarged, as is the right ventricle. Mediastinal space: Moderate hiatal hernia. Aorta: Moderate atherosclerotic changes of the nonaneurysmal abdominal aorta are noted without dissection flap. Celiac trunk and mesenteric arteries: There is moderate narrowing the origin of the celiac axis. Mild narrowing the origin of the SMA. The KIRA origin demonstrates mild disease. Renal arteries: Moderate bilateral renal artery stenosis. Right iliac arteries: Mild iliac arterial disease on the right. Left iliac arteries: Mild iliac arterial disease on the left. Other arteries: No central arterial thrombus. Portal Venous System: No mesenteric venous gas. Hepatic veins: Reflux of contrast into the IVC and hepatic veins can be seen with a component of right heart dysfunction. Liver: Homogeneous liver without enlargement. No portal venous gas. Gallbladder and bile ducts: Unremarkable. No calcified stones. No ductal dilation. Pancreas: Unremarkable. No mass. No ductal dilation. Spleen: No splenic lesions. Adrenal glands: The adrenals are poorly seen. Kidneys and ureters: No definite renal stones or hydronephrosis. The kidneys enhance symmetrically with mild volume loss. Stomach and bowel: Slxr-sz-tyascult retained stool throughout the colon without bowel obstruction. No pneumatosis. The cecum sits low in the pelvis. Appendix: Appendix not seen. Intraperitoneal space: No free air or free fluid. Lymph nodes: No confluent lymphadenopathy. Urinary bladder: Unremarkable. No mass. Reproductive: Unremarkable as visualized. Bones/joints: Osteopenia and degenerative changes without acute fracture. No lytic or blastic disease. There is a scoliosis. Anterolisthesis of L4 on L5 and L5 on S1 with retrolisthesis of L1 on L2 and L2 on L3 probably degenerative. Transitional anatomy at the lumbosacral junction of the spine. Soft tissues: Anasarca changes. The inguinal rings are open with fat bilaterally. Other findings: Motion artifact. IMPRESSION: 1. Pleural fluid with subjacent atelectasis or infiltrates in the lung bases. Follow-up recommended. 2. Cardiomegaly with findings suggestive of right heart dysfunction. 3. Atherosclerotic changes of the nonaneurysmal abdominal aorta extending into the mesenteric, renal, and iliac arteries without high-grade stenosis or central arterial thrombus. 4. No focal bowel wall thickening, pneumatosis, portal venous gas, or mesenteric venous gas. 5. No bowel obstruction or free air. 6. Distended gallbladder without definite stones or choledocholithiasis but ultrasound follow-up might be considered. 7. Anasarca changes. 8. Motion limited exam. 9. Retained stool. Electronically signed by: James Quispe On 07/31/2021 09:41:44 AM
[2021-07-31] MEDS ORDERED: dexameTHASONE 20MG/5ML VIAL (J1100 PER 1MG) IV SCH (10:00)
[2021-07-31] MEDS ORDERED: INSULIN REGULAR IN 0.9 % NACL 100 UNIT in IV 1 EA IV SCH ×2 (10:30)
[2021-07-31 10:46] LABS: PHOSPHORUS LEVEL 6.1 MG/DL (2.5-4.9)
--- NOTE | 2021-07-31 10:50 | REP ---
INDICATION: Fever, CT abd/pelvis suggest PNA. COMPARISON: Multiple the latest yesterday at 5:36 p.m. also portable TECHNIQUE: Portable FINDINGS: The technique utilized in obtaining the radiograph has magnified the cardiac silhouette and accentuated the interstitial markings. The cardiomediastinal silhouette is unchanged. Mild cardiomegaly accentuated by technique cannot be ruled out. Since the last exam, a diffuse increase in the inter 6 show markings has developed particularly in the right upper lobe. The pleural angles remain sharp. The osseous structures are stable. IMPRESSION: Increased interstitial markings, as described above, asymmetric pulmonary edema versus developing pneumonia. <Electronically signed by Rajesh Butler > 07/31/21 3024
[2021-07-31] MEDS ORDERED: SODIUM BICARBONATE 75 MEQ in NS 0.45% 1,000 ML IV SCH (11:00)
[2021-07-31] MEDS: KCL 40MEQ IN D5/0.45NS 1000ML 1,000 ML IV SCH ×2 (11:40→20:05)
[2021-07-31 11:48] LABS: VENOUS BASE EXCESS -8.8 (-2.0-2.0); VENOUS HCO3 14.7 MEQ/L (23.0-27.0); VENOUS O2 SATURATION 98.3 % (60.0-80.0); VENOUS PARTIAL PRESSURE CO2 25.5 mmHg (38.0-50.0); VENOUS PARTIAL PRESSURE O2 134.9 mmHg (30.0-50.0); VENOUS PH 7.379 UNITS (7.330-7.430); VENOUS STANDARD HCO3 17.4 MEQ/L; VENOUS TOTAL CO2 15.5 MEQ/L (24.0-28.0)
[2021-07-31 11:49] LABS: HEMOGLOBIN A1c 6.2 %
[2021-07-31] MEDS: INSULIN IV RATE CHANGE DOCUMENTATION ML/HR XX SCH (11:53)
[2021-07-31 12:28] LABS: OSMOLALITY SERUM 305 MOSM/KG (280-301)
[2021-07-31 12:33] LABS: BLOOD UREA NITROGEN 29 MG/DL (7-18); CALCIUM LEVEL 7.8 MG/DL (8.8-10.2); CARBON DIOXIDE LEVEL 15 MEQ/L (21-32); CHLORIDE LEVEL 109 MEQ/L (98-107); CREATININE FOR GFR 0.86 MG/DL (0.55-1.30); GLOMERULAR FILTRATION RATE > 60.0 (>39); GLUCOSE, FASTING 281 MG/DL (70-100); PHOSPHORUS LEVEL 3.2 MG/DL (2.5-4.9); POTASSIUM SERUM 3.3 MEQ/L (3.5-5.1); SODIUM LEVEL 141 MEQ/L (136-145)
--- NOTE | 2021-07-31 14:20 | IPNPDOC ---
Subjective Date Seen The patient was seen on 07/31/21. Subjective Chief Complaint/HPI Mrs. Mcgrath is a 75-year-old female with sciatica and diabetes mellitus type 2 who presents with intractable back pain and then found to have e ncephalitis/meningitis and DKA. Last night, she was alkalotic with pH of 7.56 and pCO2 of 20.8. Spinal tap demonstrated WBC of 24, RBC<2, Total protein 76, and Glucose 85. cake former, ABG was repeated and pH 7.046 with pCO2 38.3. Repeat ABG confirmed acidosis at 7.196 and pCO2 21.3. Lactic acid was also elevated at 5.5. I ordered for another fluid bolus (1L NS) and bicarb drip. I went to see patient. She still had the stiff neck and AMS. Her left pupil was larger than right and responded better to light than left. She will open eyes to voice, but not verbal. She is still not moving arms and legs. I had called daughter and let her know patient was not doing well. We discussed code status and agreed to DNR/DNI. With her lactic acidosis, I ordered a CT angio abd/pelvis to look for ischemic bowel. Imaging was negative. The morning BMP was drawn and resulted to demonstrate high anion gap metabolic acidosis with Bicarb of 10 and anion gap of 22. Lactic acid was 10.9. I ordered for acetone/B-hydroxybutyrate which was high at 21.78. Switched fluids from bicarb to D5W/0.45 NS and add on insulin drip. I discontinued the dexamethasone since her meningitis/encephalitis panel was negative and she was in DKA. VBG demonstrates improvement in acidosis (pH 7.379) and latic acid (now down to 4.2). Bicarb increased to 15 and anion gap decreased to 17. I reached out to neurology (Dr. Paredes) about the anisocoria and the meningitis/encephalitis. Recommended MRI brain with and without contrast. I discussed the case and consulted ID (Dr. Gentile). CSF results sounded more like a viral etiology and it may be a virus that is not on the panel. Recommended MRI. Later in the afternoon, she was agitated and in pain. She was moving her arms and legs spontaneously. It may have been the tramadol and Dilaudid that had made her lethargic. She has allergies to morphine and she would not be able to tolerate orals for tramadol. Will try a lower dose of Dilaudid. Otherwise, since patient already had contrast for the CT angio abdomen and pelvis, they cannot do the MRI with contrast of brain today. We will need to wait 24 hours for contrast study. I spoke with Dr. Paredes. Elvira with MRI without contrast. Objective Physical Examination General Exam: Negative: Alert, Cooperative Eye Exam: Positive: Other Eye Symptoms (Left pupil larger than right pupil); Negative: Sclera icteric Neck Exam: Negative: Supple (Stiff) Chest Exam: Positive: Clear to auscultation; Negative: Wheezing Heart Exam: Positive: Tachycardic, Regular Rhythm Abdomen Exam: Positive: Normal bowel sounds, Soft Extremity Exam: Positive: Edema Neuro Exam: Positive: Other (Patient had immediate pain bilateral with straight leg raise ) Psych Exam: Positive: Other (Unable to obtain as she was lethargic); Negative: Mental status NL, Oriented x 3 Assessment /Plan Assessment Mrs. Mcgrath is a 75-year-old female with sciatica and diabetes mellitus type 2 who presents with intractable back pain and then found to have encephalitis/meningitis and DKA. Patient's blood cultures did return back positive with gram positive cocci, pending results. Patient's infection may have precipitated the DKA. Treating DKA per DKA protocol. Otherwise, patient noted to have aniscoria, AMS and persistent weakness in her arms and legs. Ordered for IV thiamine. Spoke with neurology. Possibly related to her encephalitis/meningitis. Discussed case and consulted ID. This may be a virus that is not on our panel. Recommended MRI brain. Plan/VTE VTE Prophylaxis Ordered?: Yes Plan 1. Sepsis Most likely secondary to viral encephalitis/meningitis -Blood cultures positive for gram positive cocci -Continue meropenem and vancomycin day 2 2. Encephalitis/meningitis CSF positive for WBC and protein Encephalitis/meningitis panel negative. May be virus not on our panel Supportive care 3. High anion gap metabolic acidosis Secondary to lactic acid and ketoacidosis IV fluids and treatment of DKA 4. DKA This may be euvolemic DKA or ketoacidosis May have been triggered by infection, inability to tolerate orals, and no insulin Insulin drip and D5W half-normal saline with 40 of KCL 5. Intractable low back pain secondary to severe lumbar spinal stenosis Patient cannot tolerate orals Patient has allergy to morphine PRN IV ketorolac and intermittent doses of IV Dilaudid 6. Hypothyroidism Converted oral levothyroxine to IV levothyroxine 7. GERD Continue omeprazole 8. DVT prophylaxis Lovenox Disposition: Pending clinical improvement, MRI, and culture results VS, I&O, 24H, Fishbone Vital Signs/I&O Vital Signs Date Time Temp Pulse Resp B/P (MAP) Pulse Ox O2 Delivery O2 Flow Rate FiO2 07/31/21 12:48 98.7 07/31/21 12:00 98 117/74 (88) 99 Nasal Cannula 2.0 07/31/21 10:36 22 I&O- Last 24 Hours up to 6 AM 07/31/21 06:00 Intake Total 600 ml Balance 600 ml Laboratory Data 24H LABS Laboratory Tests 2 07/30/21 17:24: Total Bilirubin 1.2H, Direct Bilirubin 0.4H, Aspartate Amino Transf (AST/SGOT) 108H, Alanine Aminotransferase (ALT/SGPT) 92H, Alkaline Phosphatase 109, Ammonia < 10, Total Protein 6.7, Albumin 2.8L, Albumin/Globulin Ratio 0.7L 07/30/21 17:42: Blood Gas Bicarbonate Standard 22.8, Arterial Blood pH 7.560H, Arterial Blood Partial Pressure CO2 20.8L, Arterial Blood Partial Pressure O2 71.2L, Arterial Blood Total CO2 18.8L, Arterial Blood HCO3 18.2L, Arterial Blood Base Excess - 2.0, Arterial Blood Oxygen Saturation 95.3 07/30/21 18:45: CSF Appearance CLEAR, CSF Color COLORLESS, CSF WBC (Auto) 7, CSF RBC (Auto) < 2H, CSF Glucose (Tube 1) TUBE 3, CSF Total Protein (Tube 1) TUBE 3, CSF Cell Count Tube # TUBE 4, CSF Mononuclear Cells % (Auto) 16.7H, CSF Polynuclear WBCs (%) , CSF Glucose 85H, CSF Total Protein 76H 07/30/21 18:53: Immature Granulocyte % (Auto) 1.7, Neutrophils (%) (Auto) 90.3H, Lymphocytes (%) (Auto) 6.5L, Monocytes (%) (Auto) 0.8L, Eosinophils (%) (Auto) 0.0, Basophils (%) (Auto) 0.7, Neutrophils # (Auto) 6.8, Lymphocytes # (Auto) 0.5L, Monocytes # (Auto) 0.1, Eosinophils # (Auto) 0.0, Basophils # (Auto) 0.1, Nucleated Red Blood Cells % (auto) 0.0, Anion Gap 12, Glomerular Filtration Rate > 60.0, Lactic Acid Level 3.2*H, Calcium Level 9.3 07/30/21 23:34: Lactic Acid Followup at 4 Hours 5.5*H 07/31/21 05:31: Urine Color YELLOW, Urine Appearance CLOUDYH, Urine pH 5.0, Urine Specific [place] 1.015, Urine Protein 2+H, Urine Glucose (UA) NEGATIVE, Urine Ketones 1+H, Urine Blood 2+H, Urine Nitrite NEGATIVE, Urine Bilirubin NEGATIVE, Urine Urobilinogen 0.2, Urine Leukocyte Esterase NEGATIVE, Urine WBC (Auto) 1, Urine RBC (Auto) 34H, Urine Hyaline Casts (Auto) 0, Urine Bacteria (Auto) 1+H, Urine Squamous Epithelial Cells 0, Urine Mucus (Auto) SMALL, Urine Sperm (Auto) 07/31/21 05:55: Blood Gas Bicarbonate Standard 9.1L, Arterial Blood pH 7.046*L, Arterial Blood Partial Pressure CO2 38.3, Arterial Blood Partial Pressure O2 23.3*L, Arterial Blood Total CO2 11.4L, Arterial Blood HCO3 10.3L, Arterial Blood Base Excess -19.5L, Arterial Blood Oxygen Saturation 19.7L 07/31/21 06:26: Blood Gas Bicarbonate Standard 11.1L, Arterial Blood pH 7.196*L, Arterial Blood Partial Pressure CO2 21.3L, Arterial Blood Partial Pressure O2 88.7, Arterial Blood Total CO2 8.7L, Arterial Blood HCO3 8.1L, Arterial Blood Base Excess - 18.1L, Arterial Blood Oxygen Saturation 93.4L 07/31/21 07:33: Nucleated Red Blood Cells % (auto) 0.0, Anion Gap 22H, Glomerular Filtration Rate 60.0, Estimated Mean Plasma Glucose 131H, Hemoglobin A1c 6.2, Osmolality 299, Lactic Acid Level 10.9*H, Calcium Level 8.7L, Phosphorus Level 6.1H, B- Hydroxybutyrate 21.78H 07/31/21 10:05: Methicillin-Resist S.aureus DNA PCR NOT DETECTED 07/31/21 10:36: Bedside Glucose (Misc Panel) 276H 07/31/21 11:39: Anion Gap 17H, Glomerular Filtration Rate > 60.0, Osmolality 305H, Calcium Level 7.8L, Phosphorus Level 3.2#, Blood Gas Bicarbonate Standard 17.4, Venous Blood pH 7.379, Venous Blood Partial Pressure CO2 25.5L, Venous Blood Partial Pressure O2 134.9H, Venous Blood Total Carbon Dioxide 15.5L, Venous Blood HCO3 14.7L, Venous Blood Oxygen Saturation 98.3H, Venous Blood Base Excess -8.8L 07/31/21 11:47: Bedside Glucose (Misc Panel) 291H 07/31/21 12:04: Lactic Acid Followup at 4 Hours 4.2*H 07/31/21 12:46: Bedside Glucose (Misc Panel) 319H 07/31/21 13:38: Bedside Glucose (Misc Panel) 274H CBC/BMP Laboratory Tests 07/30/21 18:53 07/31/21 07:33 07/31/21 11:39 Microbiology Microbiology 07/30/21 Blood Culture - Preliminary, Resulted 07/30/21 Blood Culture - Preliminary, Resulted 07/30/21 Gram Stain - Preliminary, Resulted 07/30/21 CSF Culture, Resulted Pending 07/30/21 - Final, Complete JYOTI JOSEPH DO Jul 31, 2021 14:20
[2021-07-31] MEDS ORDERED: LORazepam 2 MG/ML VIAL IV PRN (14:40)
[2021-07-31] MEDS ORDERED: IPRATROPIUM 0.5MG/ALBUTEROL 2.5MG INH SOL UD 3ML (DUONEB) NEB PRN (15:05)
[2021-07-31 16:12] LABS: VENOUS BASE EXCESS -10.1 (-2.0-2.0); VENOUS HCO3 12.8 MEQ/L (23.0-27.0); VENOUS PARTIAL PRESSURE CO2 21.8 mmHg (38.0-50.0); VENOUS PARTIAL PRESSURE O2 154.3 mmHg (30.0-50.0); VENOUS PH 7.388 UNITS (7.330-7.430); VENOUS STANDARD HCO3 16.5 MEQ/L; VENOUS TOTAL CO2 13.5 MEQ/L (24.0-28.0)
[2021-07-31] MEDS ORDERED: ACETAMINOPHEN 650 MG SUPP PR PRN (16:40)
[2021-07-31] MEDS ORDERED: NS 500 ML IV ONE (18:30)
[2021-07-31 18:34] LABS: CALCIUM LEVEL 7.9 MG/DL (8.8-10.2); CREATININE FOR GFR 1.05 MG/DL (0.55-1.30); GLOMERULAR FILTRATION RATE 54.1 (>39); POTASSIUM SERUM 3.1 MEQ/L (3.5-5.1)
[2021-07-31] MEDS ORDERED: cefTRIAXone SOD 2 GM in D5W MINI-BAG PLUS 50 ML IV SCH (20:00)
--- NOTE | 2021-07-31 20:51 | REPVR ---
PROCEDURE INFORMATION: Exam: MR Head Without Contrast Exam date and time: 07/31/2021 6:46 PM Age: 75 years old Clinical indication: Headache not specified; Patient HX: PT is confused, and pain in lower back and has a fever; Additional info: Encephalitis/meningitis TECHNIQUE: Imaging protocol: MR of the head without contrast. COMPARISON: CT Head without contrast 07/30/2021 5:01 PM FINDINGS: Brain: There is no acute infarct. No acute intracranial hemorrhage is seen. No mass, mass effect, midline shift, or herniation is noted. There are non-specific foci of T2 and FLAIR hyperintensity in the periventricular and subcortical white matter and trina, which are likely the sequela of chronic small vessel ischemic injury. Incidental note is made of a right parafalcine calcification. Cerebral ventricles: The ventricles are mildly dilated in proportion to the sulci, which is compatible with mild generalized cerebral and cerebellar volume loss. Incidental note is made of a normal variant cavum septum pellucidum and cavum vergae, which is persistence of the embryological fluid-filled space between the leaflets of the septum pellucidum. Bones/joints: Unremarkable. Paranasal sinuses: The sinuses are well-aerated. No air-fluid levels are noted in the sinuses. Mastoid air cells: The mastoid air cells are well aerated. Orbital cavity: Unremarkable. Soft tissues: Unremarkable. IMPRESSION: 1. No acute intracranial abnormality. 2. Mild cerebral and cerebellar atrophy and chronic microangiopathic changes. Electronically signed by: Juan Bass On 07/31/2021 20:51:11 PM
--- NOTE | 2021-07-31 20:51 | REPVR ---
PROCEDURE INFORMATION: Exam: MR Cervical Spine Without Contrast Exam date and time: 07/31/2021 6:46 PM Age: 75 years old Clinical indication: Pain; Lower back; Patient HX: PT is confused and has a fever; Additional info: Encephalitis/meningitis TECHNIQUE: Imaging protocol: Multiplanar magnetic resonance images of the cervical spine without contrast. COMPARISON: No relevant prior studies available. FINDINGS: Vertebrae: There is a reversal of the normal cervical lordosis. No fracture is noted. The bone marrow signal is unremarkable. No infiltrative marrow replacing process is present. There is no evidence for discovertebral osteomyelitis. Spinal cord: Normal. No cord compression. No spinal cord edema or hemorrhage. Spinal epidural space: No abnormal epidural fluid collection. C2-C3: The disc height is preserved. No disc herniation, spinal canal stenosis, or neural foraminal stenosis is noted. There is severe osteoarthritis of the left facet joint and mild osteoarthritis of the right facet joint. C3-C4: The disc height is preserved. There is a 2 mm grade 1 anterolisthesis of C3 on C4 with uncovering of the disc posteriorly, severe osteoarthritis of the facet joints, a left facet joint effusion, and fissuring of the anterior portion of the annulus fibrosus. There is mild spinal canal stenosis, severe right neural foraminal stenosis, and mild left neural foraminal stenosis. 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 The spinal canal neural foramina are patent. C5-C6: There is severe loss of disc height, a 3 mm retrolisthesis of C5 on C6, a broad-based posterior disc osteophyte complex, bilateral uncovertebral hypertrophy, and endplate spurs projecting anteriorly. There is mild spinal canal stenosis and severe bilateral neural foraminal stenosis. C6-C7: There is severe loss of disc height, a broad-based posterior disc osteophyte complex, bilateral uncovertebral hypertrophy, fissuring of the anterior portion of the annulus fibrosus, and endplate spurs projecting anteriorly. There is mild spinal canal stenosis and mild bilateral neural foraminal stenosis. The facet joints are unremarkable. C7-T1: The disc height is preserved. There is a 3 mm grade 1 anterolisthesis of C7 on T1 with uncovering of the disc posteriorly, fissuring of the anterior portion of the annulus fibrosus, and mild osteoarthritis of the facet joints. No spinal canal stenosis or neural foraminal stenosis is noted. T1-T2: The disc height is preserved. No disc herniation, spinal canal stenosis, or neural foraminal stenosis is noted. There is moderate osteoarthritis of the facet joints. T2-T3: Axial imaging was not performed at this level. The disc height is preserved. No disc herniation, spinal canal stenosis, or neural foraminal stenosis is noted. There is moderate osteoarthritis of the facet joints. T3-T4: Axial imaging was not performed at this level. There is severe loss of disc height, a broad-based posterior protrusion, endplate spurs projecting anteriorly, and mild osteoarthritis of the facet joints. There is mild left neural foraminal stenosis. No spinal canal or right neural foraminal stenosis is noted. T4-T5: Axial imaging was not performed at this level. Moderate loss of disc height is present. No disc herniation, spinal canal stenosis, or neural foraminal stenosis is noted. There is ankylosis of the facet joints and endplate spurs projecting anteriorly. Soft tissues: There is mildly increased T2 signal in the cervical paraspinal muscles. Prevertebral and retropharyngeal spaces: There is a small amount of retropharyngeal fluid at the C4 and C5 levels, which may represent a retropharyngeal space effusion. Vertebral arteries: There is abnormal T2 hyperintense signal in the transforaminal segment of the right vertebral artery. Other findings: There is diffuse disc desiccation. IMPRESSION: 1. Abnormal T2 hyperintense signal in the transforaminal segment of the right vertebral artery, which may be flow related in nature or indicate a vertebral artery dissection or stenosis. Further evaluation can be performed with a CTA neck with intravenous contrast. 2. Small amount of retropharyngeal fluid at the C4 and C5 levels, which may represent a retropharyngeal space effusion. 3. Mildly increased T2 signal in the cervical paraspinal muscles, which may represent grade 1 strains or myositis. 4. C3-C4: Mild spinal canal stenosis, severe right neural foraminal stenosis, and mild left neural foraminal stenosis. 5. C5-C6: Mild spinal canal stenosis and severe bilateral neural foraminal stenosis. 6. C6-C7: Mild spinal canal stenosis and mild bilateral neural foraminal stenosis. 7. T3-T4: Mild left neural foraminal stenosis. Electronically signed by: Juan Bass On 07/31/2021 20:50:50 PM
[2021-07-31] MEDS: **NOTE PATIENT COMMENT** MISC XX SCH (21:00)
[2021-07-31 21:20] LABS: VENOUS BASE EXCESS -7.7 (-2.0-2.0); VENOUS HCO3 13.2 MEQ/L (23.0-27.0); VENOUS O2 SATURATION 98.1 % (60.0-80.0); VENOUS PARTIAL PRESSURE CO2 17.9 mmHg (38.0-50.0); VENOUS PARTIAL PRESSURE O2 110.2 mmHg (30.0-50.0); VENOUS PH 7.487 UNITS (7.330-7.430); VENOUS STANDARD HCO3 18.3 MEQ/L; VENOUS TOTAL CO2 13.8 MEQ/L (24.0-28.0)
[2021-07-31 21:44] LABS: BLOOD UREA NITROGEN 31 MG/DL (7-18); CARBON DIOXIDE LEVEL 17 MEQ/L (21-32); CHLORIDE LEVEL 115 MEQ/L (98-107); CREATININE FOR GFR 0.85 MG/DL (0.55-1.30); GLOMERULAR FILTRATION RATE > 60.0 (>39); GLUCOSE, FASTING 230 MG/DL (70-100); PHOSPHORUS LEVEL 1.3 MG/DL (2.5-4.9); POTASSIUM SERUM 3.5 MEQ/L (3.5-5.1); SODIUM LEVEL 145 MEQ/L (136-145)
[2021-07-31 23:00] VITALS: BP 114/68
[2021-07-31] MEDS ORDERED: INSULIN REGULAR 100UNITS IN 0.9% SODIUM CHLORIDE 100ML IVBAG As Ordered ONE (23:37)
[2021-07-31] MEDS ORDERED: POTASSIUM PHOSPHATE INJ 30 MMOL in D5W 500 ML IV ONE (23:59)
[2021-08-01] VITALS: BP 133/86
[2021-08-01] MEDS ORDERED: HYDROMORPHONE HCL 0.5 MG/ 0.5 ML SYRINGE (J1170 PER 1) IV ONE ×2 (00:50→05:30)
[2021-08-01] MEDS: KCL 40MEQ IN D5/0.45NS 1000ML 1,000 ML IV SCH (01:01)
[2021-08-01] MEDS: INSULIN IV RATE CHANGE DOCUMENTATION ML/HR XX SCH ×4 (01:12→05:18)
[2021-08-01] MEDS: MAG SULF 1GM/100ML (MAG RUN) 1 GM in IV 1 EA IV SCH ×2 (01:36→02:29)
[2021-08-01 02:00] VITALS: BP 87/64
[2021-08-01] MEDS: dexameTHASONE 20MG/5ML VIAL (J1100 PER 1MG) IV SCH (02:00)
[2021-08-01 04:00] VITALS: BP 107/66
[2021-08-01 04:28] LABS: VENOUS O2 SATURATION 98.9 % (60.0-80.0); VENOUS PARTIAL PRESSURE O2 148.2 mmHg (30.0-50.0); VENOUS PH 7.318 UNITS (7.330-7.430); VENOUS STANDARD HCO3 17.3 MEQ/L
[2021-08-01 04:33] LABS: HEMATOCRIT 34.2 % (36.0-47.0); HEMOGLOBIN 11.3 g/dl (12.0-15.5); MEAN CORPUSCULAR HEMOGLOBIN 27.3 pg (27.0-33.0); MEAN CORPUSCULAR VOLUME 82.6 fl (80.0-96.0); PLATELET COUNT, AUTOMATED 173 10^3/uL (150-450); RED BLOOD COUNT 4.14 10^6/uL (4.00-5.40); WHITE BLOOD COUNT 11.1 10^3/uL (4.0-10.0)
[2021-08-01 04:53] LABS: ACETONE/KETONE 1.04 MG/DL (<2.81); BLOOD UREA NITROGEN 30 MG/DL (7-18); CALCIUM LEVEL 7.4 MG/DL (8.8-10.2); CARBON DIOXIDE LEVEL 20 MEQ/L (21-32); CHLORIDE LEVEL 114 MEQ/L (98-107); GLOMERULAR FILTRATION RATE > 60.0 (>39); GLUCOSE, FASTING 189 MG/DL (70-100); MAGNESIUM LEVEL 2.5 MG/DL (1.8-2.4); PHOSPHORUS LEVEL 3.7 MG/DL (2.5-4.9); POTASSIUM SERUM 4.8 MEQ/L (3.5-5.1); SODIUM LEVEL 141 MEQ/L (136-145)
[2021-08-01 05:06] LABS: OSMOLALITY SERUM 297 MOSM/KG (280-301)
[2021-08-01] MEDS ORDERED: NS 1,000 ML IV SCH (05:45)
[2021-08-01 06:00] VITALS: BP 105/65
[2021-08-01] MEDS ORDERED: LEVEMIR (INSULIN DETEMIR) 1 UNITS/0.01ML SC SCH (07:00)
[2021-08-01 08:00] VITALS: BP 109/74
[2021-08-01] MEDS ORDERED: VANCOMYCIN HCL 750 MG, VIAL MATE ADAPTER 1 EACH in NS 250 ML IV SCH (09:00)
[2021-08-01] MEDS ORDERED: LEVOTHYROXINE 100MCG (0.1MG) VIAL IV SCH (09:00)
--- NOTE | 2021-08-01 09:31 | REP ---
INDICATION: Rhonchi. COMPARISON: Portable chest, 07/31/2021. TECHNIQUE: Upright AP portable chest image was obtained. FINDINGS: There is cardiomegaly and pulmonary venous hypertension without congestive heart failure. There is airspace disease in the left lung base consistent with atelectasis or pneumonia. There are no significant pleural effusions. The upper abdominal bowel gas pattern is normal. There are no bony abnormalities. IMPRESSION: 1. Cardiomegaly without congestive heart failure. 2. Airspace disease in left lung base consistent with atelectasis or pneumonia. <Electronically signed by Neeraj Rosales > 08/01/21 0921
[2021-08-01] MEDS: SCOPOLAMINE 1MG TRANSDERMAL PATCH TOP SCH (10:01)
[2021-08-01] MEDS ORDERED: LORazepam 1 MG TAB PO PRN (10:30)
[2021-08-01] MEDS ORDERED: ONDANSETRON 4 MG ORAL DISINTEGRATING TAB PO PRN ×2 (10:30→11:20)
[2021-08-01] MEDS ORDERED: ONDANSETRON 4MG/2ML VIAL IV PRN (10:30)
[2021-08-01] MEDS ORDERED: LORazepam 2 MG/ML VIAL IV PRN (10:30)
[2021-08-01] MEDS: HYDROMORPHONE HCL 0.5 MG/ 0.5 ML SYRINGE (J1170 PER 1) IV PRN ×2 (10:45→21:52)
[2021-08-01] MEDS ORDERED: VANCOMYCIN HCL 500 MG in D5W MINI-BAG PLUS 100 ML IV ONE (11:00)
[2021-08-01] MEDS: LORazepam 2 MG/ML VIAL IV PRN ×2 (11:18→21:21)
[2021-08-01] MEDS: LIDOCAINE 5% (LIDODERM) PATCH TD SCH (13:07)
--- NOTE | 2021-08-01 14:24 | IPNPDOC ---
Subjective Date Seen The patient was seen on 08/01/21. Subjective Chief Complaint/HPI Mrs. Mcgrath is a 75-year-old female with sciatica and diabetes mellitus type 2 who presents with intractable back pain and then found to have e ncephalitis/meningitis and DKA. Overnight, DKA resolved and she was taken off of insulin drip. This morning, patient was not doing well. She was intermittently alert and minimal verbal expressing pain. She would intermittently go apneic and not breath. When she did breath, she was very rhonchus and sounded wet. She has developed pitting edema. Preliminary blood cultures were positive for Group B s trep. I contacted her daughter (HCP) and explained that she is not doing well and she was going in and out of apnea. She immediately came by and saw her mother. We discussed our options of continuing with treatment versus making her comfortable known that she will soon pass away. She decided on comfort measures only. 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 Objective Physical Examination General Exam: Positive: Moderate Distress; Negative: Alert, Cooperative Eye Exam: Negative: Sclera icteric Neck Exam: Negative: Supple (Stiff) Chest Exam: Positive: Rhonchi Heart Exam: Positive: Tachycardic, Regular Rhythm Abdomen Exam: Positive: Normal bowel sounds, Soft, Tenderness Extremity Exam: Positive: Edema Neuro Exam: Positive: Other (intermittent apnea) Psych Exam: Negative: Mental status NL, Oriented x 3 Assessment /Plan Assessment Mrs. Mcgrath is a 75-year-old female with sciatica and diabetes mellitus type 2 who presents with intractable back pain and then found to have encephalitis/meningitis and DKA. Patient's blood cultures did return back positive with gram positive cocci, pending results. Patient's infection may have precipitated the DKA. Treating DKA per DKA protocol. Otherwise, patient noted to have aniscoria, AMS and persistent weakness in her arms and legs. Ordered for IV thiamine. Spoke with neurology. Possibly related to her encephalitis/meningitis. Discussed case and consulted ID. This may be a virus that is not on our panel. Recommended MRI brain. Current MRI is without contrast, and encephalitis may not present on this current MRI image. Unable to do contrast study yesterday since she had the CT abd/pelvis with contrast yesterday. Patient condition declined. She sounded wet and rhonchus. She was struggling to breath and had periods of apnea. Patient is a DNR/DNI. I contacted the daughter/HCP and discussed our options. 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 Plan/VTE VTE Prophylaxis Ordered?: Yes Plan 1. Sepsis 2. Encephalitis/meningitis 3. High anion gap metabolic acidosis 4. DKA 5. Intractable low back pain secondary to severe lumbar spinal stenosis 6. Hypothyroidism 7. GERD 8. DVT prophylaxis Disposition: Discussed with daughter/HCP about patient's decline and poor prognosis. 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 Patient will be made ALC today. VS, I&O, 24H, Fishbone Vital Signs/I&O Vital Signs Date Time Temp Pulse Resp B/P (MAP) Pulse Ox O2 Delivery O2 Flow Rate FiO2 08/01/21 06:00 98 12 105/65 (78) 99 Nasal Cannula 4.0 08/01/21 04:00 98.5 I&O- Last 24 Hours up to 6 AM 08/01/21 06:00 Intake Total 4875 ml Output Total 1950 ml Balance 2925 ml Laboratory Data 24H LABS Laboratory Tests 2 07/31/21 11:39: Blood Gas Bicarbonate Standard 17.4, Venous Blood pH 7.379, Venous Blood Partial Pressure CO2 25.5L, Venous Blood Partial Pressure O2 134.9H, Venous Blood Total Carbon Dioxide 15.5L, Venous Blood HCO3 14.7L, Venous Blood Oxygen Saturation 98.3H, Venous Blood Base Excess -8.8L, Anion Gap 17H, Glomerular Filtration Rate > 60.0, Osmolality 305H, Calcium Level 7.8L, Phosphorus Level 3.2# 07/31/21 11:47: Bedside Glucose (Misc Panel) 291H 07/31/21 12:04: Lactic Acid Followup at 4 Hours 4.2*H 07/31/21 12:46: Bedside Glucose (Misc Panel) 319H 07/31/21 13:38: Bedside Glucose (Misc Panel) 274H 07/31/21 14:53: Bedside Glucose (Misc Panel) 233H 07/31/21 15:47: Blood Gas Bicarbonate Standard 16.5, Venous Blood pH 7.388, Venous Blood Partial Pressure CO2 21.8L, Venous Blood Partial Pressure O2 154.3H, Venous Blood Total Carbon Dioxide 13.5L, Venous Blood HCO3 12.8L, Venous Blood Oxygen Saturation 99.0H, Venous Blood Base Excess -10.1L, Anion Gap 14, Glomerular Filtration Rate 54.1, Calcium Level 7.9L, Phosphorus Level 2.0#L 07/31/21 15:55: Lactic Acid Level 6.0*H 07/31/21 15:56: Bedside Glucose (Misc Panel) 233H 07/31/21 17:04: Bedside Glucose (Misc Panel) 245H 07/31/21 17:55: Bedside Glucose (Misc Panel) 228H 07/31/21 19:37: Osmolality 301 07/31/21 19:38: Bedside Glucose (Misc Panel) 225H 07/31/21 20:51: Bedside Glucose (Misc Panel) 217H 07/31/21 21:12: Blood Gas Bicarbonate Standard 18.3, Venous Blood pH 7.487H, Venous Blood Partial Pressure CO2 17.9L, Venous Blood Partial Pressure O2 110.2H, Venous Blood Total Carbon Dioxide 13.8L, Venous Blood HCO3 13.2L, Venous Blood Oxygen Saturation 98.1H, Venous Blood Base Excess -7.7L, Anion Gap 13, Glomerular Filtration Rate > 60.0, Lactic Acid Followup at 4 Hours 4.5*H, Calcium Level 8.0L, Phosphorus Level 1.3#L 07/31/21 21:53: Bedside Glucose (Misc Panel) 208H 07/31/21 23:00: Bedside Glucose (Misc Panel) 208H 07/31/21 23:53: Bedside Glucose (Misc Panel) 205H 08/01/21 00:17: Magnesium Level 1.6L 08/01/21 01:06: Bedside Glucose (Misc Panel) 179H 08/01/21 01:56: Bedside Glucose (Misc Panel) 197H 08/01/21 03:05: Bedside Glucose (Misc Panel) 213H 08/01/21 04:13: Bedside Glucose (Misc Panel) 196H 08/01/21 04:19: Nucleated Red Blood Cells % (auto) 0.0, Blood Gas Bicarbonate Standard 17.3, Venous Blood pH 7.318L, Venous Blood Partial Pressure CO2 32.0L, Venous Blood Partial Pressure O2 148.2H, Venous Blood Total Carbon Dioxide 17.0L, Venous Blood HCO3 16.0L, Venous Blood Oxygen Saturation 98.9H, Venous Blood Base Excess -9.0L, Anion Gap 7L, Glomerular Filtration Rate > 60.0, Osmolality 297, Calcium Level 7.4L, Phosphorus Level 3.7#, Magnesium Level 2.5H, B-Hydroxybutyrate 1.04 08/01/21 05:16: Bedside Glucose (Misc Panel) 157H 08/01/21 07:55: Vancomycin Level Trough 11.6 CBC/BMP Laboratory Tests 07/31/21 11:39 07/31/21 15:47 07/31/21 21:12 08/01/21 04:19 Microbiology Microbiology 07/30/21 Blood Culture - Preliminary, Resulted Strep Agalactiae Group B 07/30/21 Blood Culture - Preliminary, Resulted Strep Agalactiae Group B 07/30/21 Gram Stain - Preliminary, Resulted 07/30/21 CSF Culture - Final, Resulted 07/30/21 - Final, Complete JYOTI JOSEPH DO Aug 01, 2021 11:10
--- NOTE | 2021-08-01 14:26 | CR ---
CONSULTATION DATE: 08/01/2021 REASON FOR CONSULTATION: I was asked to consult by Dr. Bah for evaluation of possible meningitis and sepsis. HISTORY OF PRESENT ILLNESS: Ms. Mcgrath is a 75-year-old female with a history of diabetes and degenerative disc disease, who presented to the emergency room with severe intractable back pain. The patient lives with her daughter and the information was provided by the daughter. She was noted to be very lethargic in the emergency room. The patient then spiked a temperature of 104.3. At baseline, her cognition is fairly well, but she has severe pain from lumbar spine degenerative disc disease and cervical central canal stenosis and history of problems with IT band. The patient had a lumbar spine MRI, which did not demonstrate any cauda equina. Bladder ultrasound showed no acute retention. She has a lumbar puncture, which initially white cell count was 24, when in the second tube was 7 with RBCs less than 4, 16% mononuclear cells, 83% PMNs, 85 glucose and total protein 76, which is slightly elevated. Blood cultures were positive for gram-positive cocci in chains, which is consistent with streptococcus, CSF BioFire PCR was negative for pneumococcus and all other pathogens. Gram stain had no organisms and no cells seen. The patient also developed diabetic ketoacidosis (DKA) with severe lactic acidosis. He was treated with IV insulin, hydration. Lactic acid increased to 10.9. When I saw her in the emergency room at 6 p.m. on 07/31, the patient was still non-responsive. She just opened her eyes or moans when she is in pain, but did not verbalize anything. The patient was started on antibiotics with IV meropenem and vancomycin. She received one dose of Decadron for possible meningitis that was discontinued because of severe diabetic ketoacidosis (DKA). PAST MEDICAL HISTORY: Significant for: 1. Gastroesophageal reflux disease. 2. Hypertension. 3. Degenerative disc disease of the lumbar and cervical spine. 4. Sciatica. 5. Type 2 diabetes. 6. Vaccinated with COVID vaccine on 02/11/2021. PAST SURGICAL HISTORY: Negative. FAMILY HISTORY: Father of the flu at 76 and mother at 85 from a stroke. SOCIAL HISTORY: She lives with her daughter. She is a nonsmoker. MEDICATIONS: Vancomycin 750 mg IV q 12 hours, meropenem 1 gm IV q 8 hours, hydromorphone as needed, Tylenol 650 mg by mouth q 4 hours as needed, albuterol/Atrovent nebs q 4 hours as needed, lorazepam 1 mg IV as needed, thiamine 100 mg IV daily, pantoprazole 40 mg IV daily, lidocaine one patch daily, enoxaparin 40 mg subcutaneous daily, glucagon as needed, ketorolac 15 mg IV q 6 hours as needed. ALLERGIES: PENICILLIN. The patient has received cefdinir in 2019, CODEINE, ERYTHROMYCIN AND MORPHINE LABORATORY DATA: White count on admission was 7.3, today was 8.9, hemoglobin 11.7, hematocrit 36.7, platelets 191. Sodium 145, potassium 3.5, chloride 115, bicarbonate 17, BUN 31, creatinine 0.85, glucose 230, lactic acid was 10.9, down to 4.5, calcium 8, phosphorus 1.3, magnesium 1.6. Blood culture is gram-positive cocci in chains. CSF culture is pending. Gram stain is negative and BioFire PCR was negative. Brain MRI showed no acute abnormalities done without contrast. Mild cerebral and cerebellar atrophy and chronic changes consistent with age. Chest x-ray showed interstitial markings, asymmetric pulmonary edema versus developing pneumonia and cervical spine MRI showed severe degenerative disc disease with severe osteoarthritis and facet osteoarthritis at multiple levels, but concern of T2 hyperintense signal in the transforaminal segment in the right vertebral artery, questionable stenosis or dissection. Small amount of retropharyngeal fluid at C4/C5, which may represent a infection. Lumbar spine MRI was limited due to motion artifact, extensive degenerative changes. PHYSICAL EXAMINATION: She is a sick looking female in moderate discomfort, eyes closed. Does not respond to questions but moans and groans in pain. T-max was 104.3 on 07/30, currently temperature is 99.2, pulse 108, respirations 20, 02 saturation 99% on two liters nasal canula. General appearance: Elderly female in moderate discomfort. Heart: Normal S1, S2 tachycardiac. No murmurs appreciated. Lungs: Diffuse expiratory wheezes bilaterally. Good air entry. No rhonchi or crackles. Abdomen: Soft, nontender. No hepatosplenomegaly. Back was not examined. Extremities: Left leg with an area of erythema demonstrated mostly around the lateral malleolus and extends to half the leg below the knee. Tender to touch and warm, not sure if this is related to pressure versus cellulitis. Neck is stiff with no range of motion and whenever I try to flex it, she had knee flexion. Cranial nerves intact except for anisocoria. Left pupil was larger than the right pupil, but they are both responsive to light. Seems to be moving all extremities with no focal deficit. IMPRESSION: This 75-year-old female who was admitted with acute mental status changes, intractable back pain, fever up to 104.5, severe lactic acidosis consistent with severe sepsis. The patient has developed diabetic ketoacidosis (DKA). She is being treated with IV fluid and started on IV meropenem and vancomycin for treatment of sepsis and possible meningitis. Her cerebrospinal fluid is not consistent with meningitis, although having 25 white cells in the initial CSF tube is not normal, but it could be related to parameningeal focus rather than meningitis ? related to retropharyngeal process. CSF BioFire PCR was negative for viral or bacterial etiologies. Bacterial cultures of blood are positive for gram-positive cocci in chains which are consistent with streptococcus, could be pneumococcus versus beta hemolytic strep. Other possible source of infection could be left lower extremity cellulitis and that needs to be monitored. The patient is allergic to cephalosporins. She has taken cefdinir in the past and will be switched to IV ceftriaxone along with meropenem. Until meningitis is ruled out, I would suggest adding IV Decadron pending results of MRI. PLAN: MRI brain and cervical spine were being done just after I see the patient. The case has been discussed with Dr. Bah, who will restart Decadron until results of MRI. Will monitor closely glucose. If MRI shows no edema and CSF culture is negative, this will be discontinued. Continue IV ceftriaxone and vancomycin until results of culture. Will deescalate accordingly. Consult ENT about abnormal MRI cspine and ? retropharyngeal abscess Thank you for the consultation. CLAIR
[2021-08-01] MEDS: ATROPINE SULFATE 1% OP SOLN 2 ML BTL SL PRN ×2 (19:07→21:25)
[2021-08-01] MEDS: **NOTE PATIENT COMMENT** MISC XX SCH (19:40)
[2021-08-01] MEDS ORDERED: LORazepam 2 MG/ML VIAL As Ordered ONE (21:16)
[2021-08-02] MEDS ORDERED: LORazepam 2 MG/ML VIAL As Ordered ONE ×3 (01:57→23:06)
[2021-08-02] MEDS: ATROPINE SULFATE 1% OP SOLN 2 ML BTL SL PRN ×4 (02:02→23:18)
[2021-08-02] MEDS: LORazepam 2 MG/ML VIAL IV PRN ×3 (05:09→23:18)
[2021-08-02] MEDS: LIDOCAINE 5% (LIDODERM) PATCH TD SCH (08:04)
[2021-08-02] MEDS: HYDROMORPHONE HCL 0.5 MG/ 0.5 ML SYRINGE (J1170 PER 1) IV PRN ×4 (09:47→23:18)
[2021-08-02] MEDS: **NOTE PATIENT COMMENT** MISC XX SCH (19:25)
[2021-08-03] MEDS: LORazepam 2 MG/ML VIAL IV PRN (03:42)
[2021-08-03] MEDS: ATROPINE SULFATE 1% OP SOLN 2 ML BTL SL PRN ×3 (03:42→08:16)
[2021-08-03] MEDS: HYDROMORPHONE HCL 0.5 MG/ 0.5 ML SYRINGE (J1170 PER 1) IV PRN ×2 (05:39→15:31)
[2021-08-03] MEDS: LIDOCAINE 5% (LIDODERM) PATCH TD SCH (09:21)
[2021-08-03] MEDS: ACETAMINOPHEN 650 MG SUPP PR PRN ×2 (09:21→18:29)
[2021-08-03] MEDS: **NOTE PATIENT COMMENT** MISC XX SCH (21:34)
[2021-08-04] MEDS: LIDOCAINE 5% (LIDODERM) PATCH TD SCH (08:25)
[2021-08-04] MEDS: SCOPOLAMINE 1MG TRANSDERMAL PATCH TOP SCH (08:26)
[2021-08-04] MEDS: ACETAMINOPHEN 650 MG SUPP PR PRN (08:27)
[2021-08-04] MEDS: LORazepam 2 MG/ML VIAL IV PRN ×2 (16:15→18:19)
[2021-08-04] MEDS: **NOTE PATIENT COMMENT** MISC XX SCH (20:14)
[2021-08-04] MEDS: HYDROMORPHONE HCL 0.5 MG/ 0.5 ML SYRINGE (J1170 PER 1) IV PRN (20:22)
[2021-08-05] MEDS: HYDROMORPHONE HCL 0.5 MG/ 0.5 ML SYRINGE (J1170 PER 1) IV PRN ×2 (02:15→06:35)
[2021-08-05] MEDS: LIDOCAINE 5% (LIDODERM) PATCH TD SCH (09:32)
[2021-08-05] MEDS: LORazepam 2 MG/ML VIAL IV PRN (09:33)
--- NOTE | 2021-08-05 20:49 | DS.PDOC ---
Discharge Summary General Date of Admission Jul 30, 2021 at 13:04 Date of Discharge 08/05/21 Discharge Summary PROCEDURES PERFORMED DURING STAY: Lumbar Puncture on 07/30/21. ADMITTING DIAGNOSES: Severe Sepsis 2/2 suspected meningitis Lactic acidosis Spinal canal stenosis/Back pain Weakness HTN DM2 Hypothyroidism Seasonal allergies GERD DISCHARGE DIAGNOSES: Severe Sepsis 2/2 meningitis vs pneumonia vs cellulitis Diabetic Ketoacidosis (DKA) High anion gap metabolic acidosis Metabolic encephalopathy in the setting of severe sepsis Acute Hypoxic Respiratory Failure Pneumonia L lower extremity cellulitis Spinal canal stenosis/Back pain Weakness HTN DM2 Hypothyroidism Seasonal allergies GERD COMPLICATIONS/CHIEF COMPLAINT: Chronic Radicular Lumbar Pain, Intractable Low Talon. HISTORY OF PRESENT ILLNESS: Obtained from H&P by Dr. Bah: "Mrs. Mcgrath is a 75-year-old female with static and diabetes mellitus type 2 who presents with intractable back pain. Patient was given tramadol in the ED and she is been very lethargic since then. When I saw her in the morning, she cannot answer any questions. She was moaning. When I attempted straight leg raise, she immediately responded with pain. I called patient's daughter for more information. She does note she currently has IT band tightness in her hip frequently bothers her. Monday night, she woke up with pain which progressively worsened. She had to pick her mother up to sit in the wheelchair. Denies any recent falls or trauma. She tells me at baseline, the patient cognition is pretty good. While in the ED, CT of the lumbosacral spine was obtained which demonstrated severe central spinal canal stenosis. MRI was obtained and did not demonstrate cauda equina. Ultrasound of the bladder did not demonstrate any urinary retention. Patient will be admitted for intractable pain. I was notified by nurse that patient had a temperature of 104.3 and a heart rate in the 150s. Respiratory rate also increased from 14 breaths/minute to 25 breaths to minute. Blood pressure remained stable with SBP in the 140s to 150s. Patient met septic criteria. Ordered for blood cultures, repeat CBC, BMP, ABG, and lactic acid. Ordered for 30mL/kg of fluid and Meropenem and Vancomycin (due to PCN allergy). When I went down to see the patient she was still lethargic. She was able to open her eyes to verbal stimuli, but did not speak much. I tried to flex her neck and it was stiff like a lead pipe. I tried to bend her knees, but movement of legs caused severe pain. I call daughter and updated her able patient's change of status. She tells me that she is normally able to move her neck without issue. With her high fever 104.3, neck rigidity, and AMS, I am concerned for bacterial meningitis. I contacted Anesthesiology, Dr. Varela, for lumbar puncture. I ordered for dexamethasone, vancomycin, and meropenem. Patient has PCN allergy. 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 " HOSPITAL COURSE: Patient is a 75-year-old female with spinal canal stenosis type 2 diabetes presented with intractable back pain MRI did not show cauda equina. Patient was found to have encephalitis unlikely bacterial meningitis as well as DKA. She was found to be in severe sepsis. She was ordered IV fluid resuscitation as well as dexamethasone, vancomycin and meropenem. Lumbar puncture was performed, findings suggestive possible viral etiology. ID consultation was obtained, patient was assessed by Dr. Gentile. MRI C spine was performed with concerning findings for possible retropharyngeal abscess. Additional source of infection was likely left lower extremity cellulitis as well as possible bacterial pneumonia. Preliminary blood cultures positive for group B streptococcus. Patient's condition significantly declined, she was not responding to verbal or tactile stimuli. Given her severe sepsis severe high anion gap acidosis as well as DKA she had a poor prognosis. Her daughter decided for comfort measures only. Patient August 05, 2021 from severe sepsis. DISCHARGE MEDICATIONS: Please see below. ALLERGIES: Please see below. PHYSICAL EXAMINATION ON DISCHARGE: I was not present during patient's examination upon . Patient examined and pronounced by RN. LABORATORY DATA: Please see below. IMAGING: CXR on 08/01/2021: 1. Cardiomegaly without congestive heart failure. 2. Airspace disease in left lung base consistent with atelectasis or pneumonia. MRI Cervical Spine wo contrast (07/31/21): 1. Abnormal T2 hyperintense signal in the transforaminal segment of the right vertebral artery, which may be flow related in nature or indicate a vertebral artery dissection or stenosis. Further evaluation can be performed with a CTA neck with intravenous contrast. 2. Small amount of retropharyngeal fluid at the C4 and C5 levels, which may represent a retropharyngeal space effusion. 3. Mildly increased T2 signal in the cervical paraspinal muscles, which may represent grade 1 strains or myositis. 4. C3-C4: Mild spinal canal stenosis, severe right neural foraminal stenosis, and mild left neural foraminal stenosis. 5. C5-C6: Mild spinal canal stenosis and severe bilateral neural foraminal stenosis. 6. C6-C7: Mild spinal canal stenosis and mild bilateral neural foraminal stenosis. 7. T3-T4: Mild left neural foraminal stenosis. MRI brain wo contrast (07/31/21): 1. No acute intracranial abnormality. CTA chest (07/31/21): 1. Pleural fluid with subjacent atelectasis or infiltrates in the lung bases. Follow-up recommended. 2. Cardiomegaly with findings suggestive of right heart dysfunction. 3. Atherosclerotic changes of the nonaneurysmal abdominal aorta extending into the mesenteric, renal, and iliac arteries without high-grade stenosis or central arterial thrombus. 4. No focal bowel wall thickening, pneumatosis, portal venous gas, or mesenteric venous gas. 5. No bowel obstruction or free air. 6. Distended gallbladder without definite stones or choledocholithiasis but ultrasound follow-up might be considered. 7. Anasarca changes. 8. Motion limited exam. 9. Retained stool. CT head wo contrast (07/30/21): No acute intracranial abnormality. Chronic microvascular ischemic changes. MRI Lumbar Spine wo contrast (07/30/21): FINDINGS: Limited study secondary to motion artifact. Specially T2 axial images are severely degraded by motion artifact. Vertebral heights are maintained. Loss of disc spaces at multiple levels with disc desiccation. Multilevel retropulsion anteriopulsion as described below. Vertebrae: Levoscoliosis of the lumbar spine. Spinal cord: Normal signal. No cord compression. L1-L2: 4 mm retrolisthesis of L1 on L2 with posterior disc osteophyte formation, and bilateral facet joint arthropathy without any significant central spinal canal stenosis. Severe bilateral neural foraminal narrowing, right greater than left with impingement on the exiting bilateral nerve roots. L2-L3: 10.2 retrolisthesis of L2 on L3 with posterior disc osteophyte formation, bilateral facet joint arthropathy and ligamentum flavum hypertrophy resulting in severe central spinal canal stenosis, severe bilateral recess narrowing, and severe bilateral neural foraminal narrowing, with impingement of exiting bilateral L2 nerve roots and traversing bilateral L3 nerve roots. L3-L4: Diffuse disc bulge with right subarticular disc protrusion, bilateral facet joint arthropathy and ligamentum flavum hypertrophy resulting in severe central spinal canal stenosis, severe right lateral recess narrowing, mild left lateral recess narrowing, severe right and moderate left neural foraminal narrowing with impingement on exiting bilateral, right greater than left L3 nerve roots and abutment of traversing right L4 nerve root. L4-L5: 5.4 mm anterolisthesis of L4 on L5 with uncovering of posterior disc, diffuse disc bulge with central disc protrusion measuring 5.3 x 7.3 mm, bilateral facet joint arthropathy and ligamentum flavum hypertrophy resulting in severe central spinal canal stenosis, severe bilateral recess narrowing, and severe bilateral neural foraminal narrowing with impingement on the exiting bilateral L4 and traversing bilateral L5 nerve roots. L5-S1: 3.8 mm anterolisthesis of L4 on L5 with uncovering of posterior disc, diffuse disc bulge with bilateral facet joint arthropathy and ligamentum flavum hypertrophy without any significant central spinal canal stenosis, mild left lateral recess narrowing, and moderate to severe bilateral neural foraminal narrowing with impingement on the exiting bilateral L5 nerve roots. Soft tissues: Unremarkable. IMPRESSION: Limited study secondary to motion artifact. Specially T2 axial images are severely degraded by motion artifact. Extensive degenerative changes as described in detail above. Please see above dictation for individual levels. CT Lumbar Spine wo contrast (07/30/21): IMPRESSION: 1. Advanced degenerative spondylosis as above with severe central spinal canal stenosis, worst at L3-L4 and L4-L5. 2. Multilevel moderate to severe neural foraminal stenoses. 3. Stable thoracolumbar scoliosis. DISPOSITION: 20 . TIME SPENT ON DISCHARGE: 25 minutes Vital Signs/I&Os Vital Signs Date Time Temp Pulse Resp B/P (MAP) Pulse Ox O2 Delivery O2 Flow Rate FiO2 08/05/21 09:00 3.0 08/01/21 08:00 96.7 101 10 109/74 (86) 99 Nasal Cannula I&O- Last 24 Hours up to 6 AM 08/05/21 06:00 Intake Total 0 ml Output Total 2200 ml Balance -2200 ml Microbiology Microbiology 07/30/21 Blood Culture - Final, Complete Strep Agalactiae Group B 07/30/21 Blood Culture - Final, Complete Strep Agalactiae Group B 07/30/21 Gram Stain - Final, Complete 07/30/21 CSF Culture - Final, Complete 07/30/21 - Final, Complete Discharge Medications Scheduled Ascorbate Calcium/Bioflavonoid (Montse-C 1,000 mg Tablet) 1 Each Tablet, 1 EACH PO QPM, (Reported) DINNERTIME Aspirin (Aspirin EC) 81 Mg Tablet.dr, 81 MG PO DAILY, (Reported) Atorvastatin Calcium (Atorvastatin Calcium) 80 Mg Tablet, 80 MG PO QHS, (Reported) B2/Vits A,C,E/Lut/Zeaxanth/Min (Icaps Tablet) 1 Each Tablet.er, 1 TAB PO QPM, (Reported) DINNERTIME Elan/D3/Mag11/Zinc/Nutrition Partner/Royce/Bor (Caltrate 600+D Plus Tablet) 1 Each Tablet, 1 TAB PO QPM, (Reported) DINNERTIME Chlorthalidone (Chlorthalidone) 25 Mg Tablet, 25 MG PO DAILY, (Reported) Cyanocobalamin (Vitamin B-12) (Vitamin B-12) 1,000 Mcg Tablet, 1,000 MCG PO QPM, (Reported) DINNERTIME Dulaglutide (Trulicity) 0.75 Mg/0.5 Ml Pen.injctr, 0.75 MG SQ QWEEK, (Reported) THURSDAYS Levothyroxine Sodium (Synthroid) 75 Mcg Tablet, 75 MCG PO DAILY, (Reported) Loratadine (Loratadine) 10 Mg Tablet, 10 MG PO DAILY, (Reported) Meclizine HCl (Meclizine HCl) 25 Mg Tablet, 25 MG PO TID, (Reported) MORNING, SUPPER, NIGHT Metformin HCl (Metformin HCl) 1,000 Mg Tablet, 1,000 MG PO BID, (Reported) Multivitamins (Thera M Plus Tablet) 1 Each Tablet, 1 TAB PO QPM, (Reported) DINNERTIME Corinth-3 Fatty Acids/Fish Oil (Corinth 3 1,000 mg Softgel) 1 Each Capsule, 1 CAP PO QPM, (Reported) DINNERTIME Omeprazole (Omeprazole) 20 Mg Capsule.dr, 20 MG PO DAILY, (Reported) Phenazopyridine HCl (Azo Urinary Pain Relief) 95 Mg Tablet, 95 MG PO QPM, (Reported) DINNERTIME Potassium Chloride (Potassium Chloride) 10 Meq Tab.er.prt, 10 MEQ PO DAILY, (Reported) Scheduled PRN Baclofen (Baclofen) 10 Mg Tablet, 10 MG PO TID PRN for MUSCLE SPASMS, (Reported) Ibuprofen (Ibuprofen) 600 Mg Tablet, 600 MG PO TID PRN for PAIN LEVEL 1-5, (Reported) Allergies Coded Allergies: Penicillins (Verified Allergy, Mild, rash, 09/09/19) Sulfa (Sulfonamide Antibiotics) (Verified Allergy, Mild, rash, 09/09/19) codeine (Verified Allergy, Mild, rash, 09/09/19) erythromycin base (Verified Allergy, Mild, rash, 09/09/19) morphine (Verified Allergy, Mild, rash, 09/09/19) MIR SHERWOOD MD Aug 05, 2021 20:49
== END 2021-08-05 10:59 | disposition expired | DRG 871 ==
LOC: M ED 00:11 → M ED INP 13:04 → ENRESERV 13:50 → M PCU 07-31 22:45 → M MSPAV 08-01 11:51
PROVIDERS: ADMIT Internal Medicine; ATTEND Family Medicine
DX: A41.9 Sepsis, unspecified organism (principal); G04.90 Encephalitis and encephalomyelitis, unspecified; G03.9 Meningitis, unspecified; G93.41 Metabolic encephalopathy; J96.01 Acute respiratory failure with hypoxia; J18.9 Pneumonia, unspecified organism; E11.10 Type 2 diabetes mellitus with ketoacidosis without coma; E87.2 Acidosis; K21.9 Gastro-esophageal reflux disease without esophagitis; I10 Essential (primary) hypertension; Z88.0 Allergy status to penicillin; Z88.5 Allergy status to narcotic agent; Z88.1 Allergy status to other antibiotic agents; Z88.2 Allergy status to sulfonamides; Z79.899 Other long term (current) drug therapy; Z79.82 Long term (current) use of aspirin; Z51.5 Encounter for palliative care